=== PATIENT | female | born 1930 | race Caucasian/White ===

== ENCOUNTER 2016-07-05 10:22 | Emergency (ER) | payer MEDICARE, BC ==
[2016-07-05 10:54] VITALS: BP 151/81
--- NOTE | 2016-07-05 12:27 | RAD ---
HISTORY: Left hip pain, no history of trauma provided COMPARISONS: April 06, 2015 VIEWS: 4, Frontal view of the pelvis with frontal and frog-leg views of the left hip FINDINGS: BONE DENSITY: There is diffuse osteopenia. BONES: There is no displaced fracture. JOINTS: There is mild to moderate osteoarthritis of the hips bilaterally. ALIGNMENT: There is no dislocation. SOFT TISSUES: There is peripheral arterial calcification. OTHER FINDINGS: An IVC filter is noted IMPRESSION: 1. OSTEOPENIA. 2. OSTEOARTHRITIS. 3. PERIPHERAL ARTERIAL DISEASE. 4. NO ACUTE OSSEOUS INJURY. IF SYMPTOMS PERSIST, RECOMMEND REPEAT IMAGING
[2016-07-05] MEDS ORDERED: Acetaminophen TAB* 325 MG PO ONE (12:39)
--- NOTE | 2016-07-05 12:47 | UC ---
Aby Dawkins Auryana, [facility]ed for [facility] on 07/05/16 at 1121 . Hip/Pelvis Pain - HPI Summary HPI Summary: IN ROOM NOTE: 86 year old female presents with left hip pain starting last night. Patient reports that she also wasn't able to walk as normal. Daughter states that she was able to walk to the car and into Urgent Care but with a lot of pain. Patient denies any N/V/GI distress. She reports with occasional upper back pain- not more than normal. Director Social reports that she has seemed much more weak with substantial weight loss recently. PMHx is significant for chronic low back pain , RA, CVA, Parkinsons, and atrial ablation with stent. Patient currently lives alone with daily and prolonged visits from family. Her PCP is her Dr. Bowman. NOTE: Vital signs stable. Pulse Ox 99%. Patient is on Pradaxa and has Parkinsons. Visit history is significant for rheumatoid arthritis. NURSE NOTE: top of the left hip is very painful. pt noticed it last night. she has had no falls or trauma. - History Of Current Complaint Chief Complaint: UCLowerExtremity Stated Complaint: HIP PAIN Time Seen by Provider: 07/05/16 11:21 Hx Obtained From: Patient Hx Last Menstrual Period: post menopausal ?: No Mechanism Of Injury: unknown Onset/Duration: Sudden Onset - last night, Still Present Timing: Constant Severity Initially: Moderate Severity Currently: Moderate Location: Discrete At: - left hip Aggravating Factor(s): Movement, Weight Bearing Associated Signs And Symptoms: Positive: Negative Related History: Similar Episode/Dx As - SEE HPI - Allergies/Home Medications Allergies/Adverse Reactions: Allergies Allergy/AdvReac Type Severity Reaction Status Date / Time No Known Allergies Allergy Verified 01/26/14 09:38 PMH/Surg Hx/FS Hx/Imm Hx - Additional Past Medical History Additional PMH: ascending thoracic aortic aneurysm Endocrine History Of: Denies: Diabetes, Thyroid Disease Cardiovascular History Of: Reports: Hypertension - medicated Respiratory History Of: Reports: Pulmonary Embolism GI/ History Of: Denies: Renal Disease Neurological History Of: Reports: CVA Psychological History Of: Comment Only: Anxiety - occasional anxiety but no treatment Other History Of: Anticoagulant Therapy - Pradaxa - Surgical History Surgical History: Yes Surgery Procedure, Year, and Place: Cholycystectomy, cataracts, tonsillectomy, - Family History Known Family History: Positive: Cardiac Disease, Other - multiple myeloma - Social History Occupation: Retired Lives: Alone Alcohol Use: None Substance Use Type: None Smoking Status (MU): Never Smoked Tobacco - Immunization History Most Recent Tetanus Shot: Unknown Review of Systems Constitutional: Negative Skin: Negative Eyes: Negative ENT: Negative Cardiovascular: Negative Gastrointestinal: Negative Genitourinary: Negative Motor: Negative Neurovascular: Negative Musculoskeletal: Arthralgia - left hip pain All Other Systems Reviewed And Are Negative: Yes Physical Exam Triage Information Reviewed: Yes Appearance: Well-Appearing, No Pain Distress, Well-Nourished Vital Signs: Initial Vital Signs Temp 97.8 F 07/05/16 10:44 Pulse 83 07/05/16 10:44 Resp 18 07/05/16 10:44 BP 151/81 07/05/16 10:44 Pulse Ox 99 07/05/16 10:44 Vital Signs Reviewed: Yes Eyes: Positive: Conjunctiva Clear ENT: Positive: Hearing grossly normal, Pharynx normal, TMs normal Neck: Positive: Supple, Nontender, No Lymphadenopathy Respiratory: Positive: Chest non-tender, Lungs clear, Normal breath sounds, No respiratory distress Cardiovascular: Positive: No Murmur, Other: - IRREGULAR RATE AND RHYTHM Abdomen Description: Positive: Nontender, No Organomegaly, Soft Bowel Sounds: Positive: Present Musculoskeletal: Positive: Strength Intact, Other: - LINDSEY; MODERATE TENDERNESS OF THE LEFT HIP ON PALPATION. MILD TENDERNESS IN THE AREA OF THE LEFT BUTTOCK. NO TENDERNESS OVER THE CALF MUSCLES Neurological: Positive: Alert Psychological: Positive: Age Appropriate Behavior Skin: Negative: rashes Diagnostics - Radiology LEFT HIP/PELVIS XR Xray Interpretation: No Acute Changes Radiology Interpretation Completed By: Radiologist Hip Injury Course/Dx - Course Course Of Treatment: Discussed with patient and family the option of increased help at home to prevent future falls. Recommended acetaminophen 2000 mg pain and contrast baths. Advised to go to the ER or her PCP if her pain does not improve by next week for stronger medication like mild narcotic pain medication. Patient is Urgent/Emergent. BP elevated due to current condition w/ o HTN in PMH. Medications have been included in the original chart and reviewed. - Differential Dx/Diagnosis Differential Diagnosis/HQI/PQRI: Contusion, Sciatica Provider Diagnoses: LEFT HIP PAIN: ARTHRALGIA? BURSITIS? SOFT TISSUE INJURY? Discharge - Discharge Plan Condition: Stable Disposition: HOME Patient Education Materials: Hip Bursitis (ED), Arthralgia (ED) Referrals: Melquiades Reardon MD [Primary Care Provider] - 3 Days Additional Instructions: Contrast baths: ALTERNATE ICE AND HEAT FOR 10 MINUTES EACH. Ice massage to area may also help. WE DISCUSSED: You may have arthritis or bursitis or soft tissue injury. At the moment, there is no broken bones seen and no evidence of skin infection. Use contrast baths and up to 2000mg of acetaminophen a day. Call your doctor on Thursday if you are not getting better. Frequent visits by caregivers to assist you. GO TO ED FOR INCREASED PAIN, TEMPERATURE OR DISABILITY. The documentation as recorded by the Aby castrejon Auryana accurately reflects the service I personally performed and the decisions made by me, Lobo Adams MD.
== END 2016-07-05 12:53 | disposition home or self-care (01) ==
LOC: UCEAST 10:22
DX: M25.552 Pain in left hip (principal); N95.9 Unspecified menopausal and perimenopausal disorder; G20 Parkinson's disease; M06.9 Rheumatoid arthritis, unspecified; M54.5 Low back pain; G89.29 Other chronic pain; I25.2 Old myocardial infarction; Z86.711 Personal history of pulmonary embolism; F41.9 Anxiety disorder, unspecified; Z79.01 Long term (current) use of anticoagulants; I71.2 Thoracic aortic aneurysm, without rupture
CPT/HCPCS: 99211; A9270-GY; G0463

== ENCOUNTER 2017-05-10 15:57 | Emergency (ER) | payer MEDICARE ==
[2017-05-10] MEDS ORDERED: traMADol TAB* 50 MG PO ONE (16:33)
--- NOTE | 2017-05-10 17:09 | RAD ---
Indication: Slurring of speech. LEFT shoulder pain. Comparison: No relevant prior exams available on the [facility] PACS for comparison. Technique: AP and scapular Y views of the LEFT shoulder. Report: Normal acromioclavicular and glenohumeral joint alignment. Bone density is decreased throughout. Negative for fracture. Moderate acromioclavicular joint osteophytosis and mild osteophytic lipping at the glenohumeral joint. Minimal calcific tendinopathy at the level of the supraspinatus insertion. Unremarkable soft tissue contours. IMPRESSION: Moderate acromioclavicular and mild glenohumeral joint osteoarthritis. Small burden of supraspinatus level calcific tendinopathy.
--- NOTE | 2017-05-10 17:16 | RAD ---
Indication: Slurring of speech. Comparison: July 14, 2008 Technique: Noncontrast CT vertex of skull through foramen magnum. Report: Chronic finding of dolichoectatic vertebrobasilar system. Atherosclerotic calcification also evident at the intracranial internal carotid arteries and M1 segments of the middle cerebral arteries. Moderate prominence of the cerebral sulci and cerebellar fissures reflecting atrophy. Decreased density in the periventricular and subcortical white matter while non-specific is most likely due to chronic microangiopathy. Negative for davis matter white matter obscuration, intra or extra-axial hemorrhage, or mass effect. No suspicious finding at the orbits. Indolent thickening of the inner table of the frontal bone. Clear partially visualized paranasal sinuses and mastoid air spaces. Unremarkable scalp. IMPRESSION: 1. Negative for intracranial hemorrhage or compelling CT stigmata of acute or subacute ischemic stroke. 2. No acute intracranial process evident. 2. Involutional change and stigmata of chronic small vessel ischemic disease with mild interval worsening.
--- NOTE | 2017-05-10 17:18 | RAD ---
Indication: Slurring of speech. LEFT shoulder and neck pain. Comparison: December 09, 2016 chest radiograph. Technique: Sitting AP chest 1659 hours Report: Cardiomegaly. Mildly prominent and ill-defined central pulmonary vasculature. Mild prominence of the interstitial markings increased over the prior exam with suggestion of peripheral thickened interlobular septa. Trace fluid at the RIGHT minor fissure. Negative for pneumothorax. IMPRESSION: The constellation of findings is most consistent with pulmonary vascular congestion and interstitial edema.
--- NOTE | 2017-05-10 17:19 | RAD ---
Indication: LEFT shoulder and neck pain without known proceeding injury. Comparison: February 01, 2012 Technique: AP, open-mouth odontoid, and lateral views cervical spine. Report: Negative for fracture or facet subluxation at any level. Bone density appears decreased throughout. Multilevel degenerative spondylosis with severe disc space narrowing at C5-C6 and C6-C7 with interval worsening. Facet joint osteoarthritis most prominent in the same distribution. Unremarkable prevertebral soft tissue contours. IMPRESSION: 1. No traumatic injury of the cervical spine evident. 2. Advanced degenerative spondylosis with interval worsening.
[2017-05-10 17:51] LABS: ABS Basophils 0 10^3/ul (0-0.2); ABS Eosinophils 0.1 10^3/ul (0-0.6); ABS Lymphocytes 1.5 10^3/ul (1.0-4.8); ABS Monocytes 0.5 10^3/ul (0-0.8); ABS Neutrophils 8.8 10^3/ul (1.5-7.7); ABS Nucleated RBC 0 10^3/ul; Eosinophil % 1.3 % (0-6); Hematocrit 49 % (35-47); Hemoglobin 16.2 g/dl (12.0-16.0); Lymphocyte % 13.4 % (25-47); Mean Corpuscular HGB Conc 33 g/dl (31-36); Mean Corpuscular Hemoglobin 34 pg (27-31); Mean Corpuscular Volume 105 fL (80-97); Mean Platelet Volume 9.5 um3 (7.4-10.4); Nucleated Red Blood Cells % 0.2; Platelet Count 122 10^3/ul (150-450); Red Cell Distribution Width 16 % (10.5-15)
[2017-05-10 17:59] LABS: INR 0.94 (0.77-1.02)
[2017-05-10 18:09] LABS: EGFR Non-African American 50.7 (>60)
[2017-05-10] MEDS ORDERED: oxyCODONE/Acetamin 5/325 MG* TAB PO ONE (18:35)
[2017-05-10 18:52] VITALS: BP 152/78
--- NOTE | 2017-05-10 20:26 | ED ---
Lynnette Dawkins Edward, scribed for [facility] on 05/10/17 at 1613 . Upper Extremity Pain - HPI Summary HPI Summary: 86 y/o female presents to the ED c/o severe L shoulder pain starting around 15: 00 today. The pain is aggravated with deep breaths, described as a "knife"-like pain. Associated sx: neck pain at the back of the neck. Denies injury. Denies CP or SOB. PMHx Parkinson's, CVA (10-12 years ago). Pt has chronic slurring of speech, which is worse at times than others, according to the pt's son. - History of Current Complaint Stated Complaint: LT SHOULDER PAIN Time Seen by Provider: 05/10/17 16:10 Hx Obtained From: Patient Hx Last Menstrual Period: post menopausal Onset/Duration: Started Hours Ago, Still Present Timing: Constant Pain Location: Shoulder - L Character: Sharp - like a "knife" Aggravating Factor(s): Other - deep breaths Alleviating Factor(s): Nothing Associated Signs & Symptoms: Positive: Neck Pain. Negative: Chest Pain, SOB - Allergies/Home Medications Allergies/Adverse Reactions: Allergies Allergy/AdvReac Type Severity Reaction Status Date / Time No Known Allergies Allergy Verified 05/10/17 17:14 Home Medications: Home Medications Acetaminophen [Tylenol Extra Strength] 500 - 1,000 mg PO TID PRN 05/10/17 [ History Confirmed 05/10/17] Aspirin EC Low Dose* [Ecotrin EC Low Dose 81 MG*] 81 mg PO DAILY 05/10/17 [ History Confirmed 05/10/17] Calcium Carbonate/Vitamin D3 [Calcium 500 + Vit D Caplet] 1 cap PO DAILY [History Confirmed 05/10/17] Carbidopa/Levodop CR 50/200(*) [Sinemet CR 50/200(*)] 1 tab.cr PO TID 05/10/17 [ History Confirmed 05/10/17] Enalapril TAB* [Vasotec TAB*] 5 mg PO DAILY 05/10/17 [History Confirmed 05/10/17 ] Multivitamin with Iron [Daily Multivitamin with Iron] 1 tab PO DAILY 05/10/17 [ History Confirmed 05/10/17] Simvastatin (NF) [Zocor (NF)] 20 mg PO DAILY 05/10/17 [History Confirmed ] amLODIPine TAB* [Norvasc 5 mg TAB*] 2.5 mg PO DAILY 05/10/17 [History Confirmed 05/10/17] PMH/Surg Hx/FS Hx/Imm Hx Previously Healthy: No Endocrine/Hematology History: Reports: Hx Anticoagulant Therapy - Pradaxa Denies: Hx Diabetes, Hx Thyroid Disease Cardiovascular History: Reports: Hx Hypertension - medicated, Other Cardiovascular Problems/Disorders - PE Respiratory History: Reports: Hx Pulmonary Embolism GI History: Reports: Hx Diverticulosis, Hx Gastroesophageal Reflux Disease, Hx Hiatal Hernia, Other GI Disorders History: Denies: Hx Renal Disease Musculoskeletal History: Reports: Hx Arthritis, Hx Rheumatoid Arthritis, Hx Osteoporosis Denies: Hx Back Problems Sensory History: Reports: Hx Cataracts - Surgically repaired, Hx Contacts or Glasses Opthamlomology History: Reports: Hx Cataracts - Surgically repaired, Hx Contacts or Glasses Neurological History: Reports: Other Neuro Impairments/Disorders - Parkinson Psychiatric History: Comment Only: Hx Anxiety - occasional anxiety but no treatment - Cancer History Cancer Type, 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, 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) - Surgical History Surgery Procedure, Year, and Place: Cholycystectomy, cataracts, tonsillectomy, Hx Anesthesia Reactions: No Infectious Disease History: No Infectious Disease History: Reports: Hx Hepatitis - 1960s Denies: Traveled Outside the [place] in Last 30 Days - Family History Known Family History: Positive: Cardiac Disease, Other - multiple myeloma - Social History Alcohol Use: None Substance Use Type: Reports: None Smoking Status (MU): Never Smoked Tobacco Review of Systems Constitutional: Negative Eyes: Negative ENT: Negative Cardiovascular: Negative Respiratory: Negative Gastrointestinal: Negative Genitourinary: Negative Positive: Arthralgia - L shoulder, back of the neck Skin: Negative Neurological: Negative Psychological: Normal All Other Systems Reviewed And Are Negative: Yes Physical Exam - Summary Physical Exam Summary: Appearance: Well appearing, no pain distress Skin: warm, dry, reflects adequate perfusion Head/face: normal Eyes: EOMI, BLANCA ENT: normal Neck: supple, non-tender Respiratory: CTA, breath sounds present Cardiovascular: RRR, pulses symmetrical Abdomen: non-tender, soft Bowel: present Musculoskeletal: Strength/ROM intact. Tenderness over the L shoulder. Neuro: normal, sensory motor intact, A&Ox3 Triage Information Reviewed: Yes Vital Signs On Initial Exam: Initial Vitals Temp Pulse Resp BP Pulse Ox 97.7 F 78 20 150/80 98 05/10/17 16:02 05/10/17 16:02 05/10/17 16:02 05/10/17 16:02 05/10/17 16:02 Vital Signs Reviewed: Yes Diagnostics - Vital Signs Vital Signs Temp Pulse Resp BP Pulse Ox 05/10/17 16:02 97.7 F 78 20 150/80 98 - Laboratory Lab Results: Lab Results 05/10/17 05/10/17 05/10/17 Range/Units 17:30 17:30 17:30 WBC 11.0 H (3.5-10.8) 10^3/ul RBC 4.70 (4.0-5.4) 10^6/ul Hgb 16.2 H (12.0-16.0) g/dl Hct 49 H (35-47) % MCV 105 H (80-97) fL MCH 34 H (27-31) pg MCHC 33 (31-36) g/dl RDW 16 H (10.5-15) % Plt Count 122 L (150-450) 10^3/ul MPV 9.5 (7.4-10.4) um3 Neut % (Auto) 80.2 (38-83) % Lymph % (Auto) 13.4 L (25-47) % [place] % (Auto) 4.7 (0-7) % Eos % (Auto) 1.3 (0-6) % Baso % (Auto) 0.4 (0-2) % Absolute Neuts (auto) 8.8 H (1.5-7.7) 10^3/ul Absolute Lymphs (auto) 1.5 (1.0-4.8) 10^3/ul Absolute Monos (auto) 0.5 (0-0.8) 10^3/ul Absolute Eos (auto) 0.1 (0-0.6) 10^3/ul Absolute Basos (auto) 0 (0-0.2) 10^3/ul Absolute Nucleated RBC 0 10^3/ul Nucleated RBC % 0.2 INR (Anticoag Therapy) 0.94 (0.77-1.02) APTT 28.6 (26.0-36.3) seconds Sodium 138 (133-145) mmol/L Potassium 4.1 (3.5-5.0) mmol/L Chloride 107 (101-111) mmol/L Carbon Dioxide 20 L (22-32) mmol/L Anion Gap 11 (2-11) mmol/L BUN 24 (6-24) mg/dL Creatinine 1.03 H (0.51-0.95) mg/dL Est GFR ( Amer) 65.2 (>60) Est GFR (Non-Af Amer) 50.7 (>60) BUN/Creatinine Ratio 23.3 H (8-20) Glucose 119 H (70-100) mg/dL Calcium 9.4 (8.6-10.3) mg/dL Total Bilirubin 0.90 (0.2-1.0) mg/dL AST 34 (13-39) U/L ALT 6 L (7-52) U/L Alkaline Phosphatase 76 (34-104) U/L Troponin I 0.01 (<0.04) ng/mL B-Natriuretic Peptide ( - 100) pg/mL Total Protein 7.2 (6.4-8.9) g/dL Albumin 3.6 (3.2-5.2) g/dL Globulin 3.6 (2-4) g/dL Albumin/Globulin Ratio 1.0 (1-3) 03/25/18 Range/Units 17:30 WBC (3.5-10.8) 10^3/ul RBC (4.0-5.4) 10^6/ul Hgb (12.0-16.0) g/dl Hct (35-47) % MCV (80-97) fL MCH (27-31) pg MCHC (31-36) g/dl RDW (10.5-15) % Plt Count (150-450) 10^3/ul MPV (7.4-10.4) um3 Neut % (Auto) (38-83) % Lymph % (Auto) (25-47) % [place] % (Auto) (0-7) % Eos % (Auto) (0-6) % Baso % (Auto) (0-2) % Absolute Neuts (auto) (1.5-7.7) 10^3/ul Absolute Lymphs (auto) (1.0-4.8) 10^3/ul Absolute Monos (auto) (0-0.8) 10^3/ul Absolute Eos (auto) (0-0.6) 10^3/ul Absolute Basos (auto) (0-0.2) 10^3/ul Absolute Nucleated RBC 10^3/ul Nucleated RBC % INR (Anticoag Therapy) (0.77-1.02) APTT (26.0-36.3) seconds Sodium (133-145) mmol/L Potassium (3.5-5.0) mmol/L Chloride (101-111) mmol/L Carbon Dioxide (22-32) mmol/L Anion Gap (2-11) mmol/L BUN (6-24) mg/dL Creatinine (0.51-0.95) mg/dL Est GFR ( Amer) (>60) Est GFR (Non-Af Amer) (>60) BUN/Creatinine Ratio (8-20) Glucose (70-100) mg/dL Calcium (8.6-10.3) mg/dL Total Bilirubin (0.2-1.0) mg/dL AST (13-39) U/L ALT (7-52) U/L Alkaline Phosphatase (34-104) U/L Troponin I (<0.04) ng/mL B-Natriuretic Peptide 221 H ( - 100) pg/mL Total Protein (6.4-8.9) g/dL Albumin (3.2-5.2) g/dL Globulin (2-4) g/dL Albumin/Globulin Ratio (1-3) Result Diagrams: 05/10/17 17:30 05/10/17 17:30 Lab Statement: Any lab studies that have been ordered have been reviewed, and results considered in the medical decision making process. - Radiology SHOULDER XR Radiology Interpretation Completed By: Radiologist - Moderate acromioclavicular and mild glenohumeral joint osteoarthritis. Small burden of supraspinatus level calcific tendinopathy. CSPINE XR Radiology Interpretation Completed By: Radiologist - 1. No traumatic injury of the cervical spine evident. 2. Advanced degenerative spondylosis with interval worsening. CXR Xray Interpretation: Positive (See Comments) - The constellation of findings is most consistent with pulmonary vascular congestion and interstitial edema. Radiology Interpretation Completed By: Radiologist - CT BRAIN CT CT Interpretation: No Acute Changes - 1. Negative for intracranial hemorrhage or compelling CT stigmata of acute or subacute ischemic stroke. 2. No acute intracranial process evident. 2. Involutional change and stigmata of chronic small vessel ischemic disease with mild interval worsening. CT Interpretation Completed By: Radiologist - EKG 1 EKG Interpretation: 16:41 - AFIB @ 83 BPM. QS in V2, V3. Course/Dx - Course Assessment/Plan: 86 y/o female presents to the ED c/o severe L shoulder pain starting around 15:00 today. The pain is aggravated with deep breaths, described as a "knife"-like pain. Associated sx: neck pain at the back of the neck. Denies injury. Denies CP or SOB. PMHx Parkinson's, CVA (10-12 years ago). EKG - 16:41 - AFIB @ 83 BPM. QS in V2, V3. SHOULDER XR SHOWS Moderate acromioclavicular and mild glenohumeral joint osteoarthritis. Small burden of supraspinatus level calcific tendinopathy. C-SPINE XR SHOWS 1. No traumatic injury of the cervical spine evident. 2. Advanced degenerative spondylosis with interval worsening. BRAIN CT SHOWS 1. Negative for intracranial hemorrhage or compelling CT stigmata of acute or subacute ischemic stroke. 2. No acute intracranial process evident. 2. Involutional change and stigmata of chronic small vessel ischemic disease with mild interval worsening. CXR SHOWS The constellation of findings is most consistent with pulmonary vascular congestion and interstitial edema. Pt will be d/c home with f/u with PCP. Pt is agreeable with this plan. - Diagnoses Differential Diagnosis/HQI/PQRI: Positive: Arthritis, Bursitis, Fracture (Open) , Strain, Sprain Provider Diagnoses: Shoulder pain, left, Musculoskeletal pain Discharge - Sign-Out/Discharge Documenting (check all that apply): Discharge - Discharge Plan Condition: Stable Disposition: HOME Prescriptions: Oxycodone HCl/Acetaminophen [Percocet 2.5-325 mg (NF)] 1 tab PO Q8H PRN #15 tab MDD 3 PRN Reason: Pain Patient Education Materials: Musculoskeletal Pain (ED), Shoulder Pain (ED) Referrals: Nasrin Bowman MD [Primary Care Provider] - 4 Days (PLEASE F/U IN 3-5 DAYS) Additional Instructions: RETURN TO THE ED FOR CHANGING OR WORSENING SYMPTOMS - Billing Disposition and Condition Condition: STABLE Disposition: HOME The documentation as recorded by the Lynnette castrejon Edward accurately reflects the service I personally performed and the decisions made by , Jeronimo Holt.
== END 2017-05-10 18:51 | disposition home or self-care (01) ==
LOC: ED 15:57
DX: M25.512 Pain in left shoulder (principal); M54.2 Cervicalgia; M47.812 Spondylosis without myelopathy or radiculopathy, cervical region; R47.81 Slurred speech; M19.012 Primary osteoarthritis, left shoulder; I48.91 Unspecified atrial fibrillation; I10 Essential (primary) hypertension; Z86.711 Personal history of pulmonary embolism; Z79.01 Long term (current) use of anticoagulants; K21.9 Gastro-esophageal reflux disease without esophagitis; K44.9 Diaphragmatic hernia without obstruction or gangrene; K57.90 Diverticulosis of intestine, part unspecified, without perforation or abscess without bleeding; M06.9 Rheumatoid arthritis, unspecified; M81.0 Age-related osteoporosis without current pathological fracture
CPT/HCPCS: 36415; 70450; 71045; 72040; 80053; 83880; 84484; 85025; 85610; 85730; 93005; 99284; A9270-GY

== ENCOUNTER 2017-05-15 11:06 | Inpatient (IN) | payer MEDICARE ==
[2017-05-15] MEDS ORDERED: NS 0.9% 1000 ML* 1,000 ML IV ONE (11:57)
[2017-05-15 12:39] LABS: Hemoglobin 14.9 g/dl (12.0-16.0); Red Blood Count 4.31 10^6/ul (4.0-5.4)
[2017-05-15 12:40] LABS: ABS Basophils 0 10^3/ul (0-0.2); ABS Eosinophils 0 10^3/ul (0-0.6); ABS Monocytes 0.9 10^3/ul (0-0.8); ABS Nucleated RBC 0 10^3/ul; Eosinophil % 0.3 % (0-6); Hematocrit 45 % (35-47); Lymphocyte % 8.7 % (25-47); Mean Corpuscular HGB Conc 33 g/dl (31-36); Mean Corpuscular Hemoglobin 35 pg (27-31); Mean Corpuscular Volume 104 fL (80-97); Mean Platelet Volume 9.3 um3 (7.4-10.4); Nucleated Red Blood Cells % 0; Platelet Count 157 10^3/ul (150-450); Red Cell Distribution Width 15 % (10.5-15)
[2017-05-15 12:49] LABS: Urine Appearance Clear; Urine Blood Negative (Negative); Urine Color Amber; Urine Ketones Trace (Negative); Urine Protein 2+(100 mg/dL) (Negative); Urine Urobilinogen Positive (Negative)
[2017-05-15 12:53] LABS: INR 0.99 (0.77-1.02)
[2017-05-15 12:56] LABS: EGFR Non-African American 50.7 (>60)
--- NOTE | 2017-05-15 13:11 | RAD ---
HISTORY: Evaluate for pneumonia COMPARISONS: May 10, 2017, December 09, 2016 VIEWS: 2: Frontal and lateral views of the chest. FINDINGS: CARDIOMEDIASTINAL SILHOUETTE: The cardiac silhouette is mildly enlarged. The cardiomediastinal silhouette is otherwise normal. CAREY: The carey are normal. PLEURA: The costophrenic angles are sharp. No pleural abnormalities are noted. LUNG PARENCHYMA: There is hyperinflation with flattening of the diaphragm and expansion of the AP diameter of the chest. ABDOMEN: The upper abdomen is clear. There is no subphrenic gas. BONES AND SOFT TISSUES: There are stable compression deformities of the thoracic spine. OTHER: None. IMPRESSION: HYPERINFLATION, CONSISTENT WITH COPD. NO ACTIVE CARDIOPULMONARY DISEASE.
--- NOTE | 2017-05-15 13:14 | RAD ---
HISTORY: Fall, hand pain and swelling COMPARISONS: None VIEWS: 3, Frontal, lateral, and oblique views of the right hand FINDINGS: BONE DENSITY: There is diffuse osteopenia. BONES: There is no displaced fracture. JOINTS: There is osteoarthritis of the second and third MCP joints, and of the interphalangeal joints. ALIGNMENT: There is no dislocation. SOFT TISSUES: There is peripheral arterial calcification.. OTHER FINDINGS: None. IMPRESSION: 1. OSTEOPENIA. 2. OSTEOARTHRITIS. 3. PERIPHERAL ARTERIAL DISEASE. 4. NO ACUTE OSSEOUS INJURY. THE DEGREE OF OSTEOPENIA MAY MAKE A NONDISPLACED FRACTURE RADIOGRAPHICALLY OCCULT. IF SYMPTOMS PERSIST, RECOMMEND REPEAT IMAGING.
--- NOTE | 2017-05-15 13:15 | RAD ---
HISTORY: Fall, generalized pain COMPARISONS: July 05, 2016 VIEWS: 1, Single frontal view of the pelvis FINDINGS: BONE DENSITY: There is diffuse osteopenia. BONES: There is no displaced fracture. JOINTS: There is mild osteoarthritis of the hips bilaterally. ALIGNMENT: There is no dislocation. SOFT TISSUES: There is peripheral arterial calcification. OTHER FINDINGS: An IVC filter is noted. IMPRESSION: 1. OSTEOPENIA. 2. OSTEOARTHRITIS. 3. PERIPHERAL ARTERIAL DISEASE. 4. NO ACUTE OSSEOUS INJURY. THE DEGREE OF OSTEOPENIA MAY MAKE A NONDISPLACED FRACTURE RADIOGRAPHICALLY OCCULT. IF SYMPTOMS PERSIST, RECOMMEND REPEAT IMAGING..
--- NOTE | 2017-05-15 13:16 | RAD ---
HISTORY: Fall, generalized pain COMPARISONS: None VIEWS: 6, frontal, outlet, and lateral views of the sacrum and coccyx. FINDINGS: BONE DENSITY: There is diffuse osteopenia. BONES: There is no displaced fracture. JOINTS: There is facet and SI osteoarthritis. ALIGNMENT: There is no dislocation. SOFT TISSUES: There is peripheral arterial calcification. OTHER FINDINGS: None. IMPRESSION: 1. OSTEOPENIA. 2. OSTEOARTHRITIS. 3. PERIPHERAL ARTERIAL DISEASE. 4. NO ACUTE OSSEOUS INJURY OF THE SACRUM AND COCCYX. PLAIN FILMS ARE RELATIVELY INSENSITIVE TO NONDISPLACED FRACTURES OF THE SACRUM AND COCCYX. IF THERE IS PERSISTENT CLINICAL CONCERN FOR SACROCOCCYGEAL OSSEOUS PATHOLOGY, BONE SCANNING MAY BE MORE SENSITIVE
[2017-05-15] MEDS ORDERED: Zolpidem TAB* 5 MG PO PRN (16:03)
[2017-05-15] MEDS ORDERED: Lidocaine PATCH 5%* 1 PATCH TRANSDERM PRN (16:03)
[2017-05-15] MEDS ORDERED: guaiFENesin LIQ* 100 MG/5 ML UDC PO PRN (16:06)
[2017-05-15] MEDS ORDERED: Benzonatate CAP* 100 MG PO PRN (16:07)
[2017-05-15] MEDS ORDERED: NS 0.9% 1000 ML* 1,000 ML IV SCH (16:15)
--- NOTE | 2017-05-15 16:57 | ED ---
Pollo Dawkins Jason, scribed for Clementine Ferreira MD on 05/15/17 at 1259 . Upper Extremity Pain - HPI Summary HPI Summary: This patient is a 86 year old F presenting to [facility] with a chief complaint of injury from a fall since 2 days ago. She states that she fell due to losing balance and injured her right hand and is experiencing sacral pain. The patient includes she has had generalized weakness for 2 years, which has increased following the fall. Furthermore, she has had a yellow productive cough that started 4-5 days ago. The patient rates the pain 5/10 in severity. Symptoms aggravated by nothing. Symptoms alleviated by nothing. Patient reports right hand pain, fever, and sacrum pain. Patient denies chills, CP, and SOB. - History of Current Complaint Chief Complaint: EDWeakness Stated Complaint: INCREASED WEAKNESS Time Seen by Provider: 05/15/17 11:42 Hx Obtained From: Patient Hx Last Menstrual Period: post menopausal Mechanism Of Injury: Fall From A Standing Position Pain Location: Hand - right, Other: - sacrum Aggravating Factor(s): Nothing Alleviating Factor(s): Nothing Associated Signs & Symptoms: Positive: Other - Patient reports right hand pain, fever, and sacrum pain. Patient denies chills, CP, and SOB. - Allergies/Home Medications Allergies/Adverse Reactions: Allergies Allergy/AdvReac Type Severity Reaction Status Date / Time No Known Allergies Allergy Verified 05/10/17 17:14 PMH/Surg Hx/FS Hx/Imm Hx Previously Healthy: No Endocrine/Hematology History: Reports: Hx Anticoagulant Therapy - Pradaxa Denies: Hx Diabetes, Hx Thyroid Disease Cardiovascular History: Reports: Hx Hypertension - medicated, Other Cardiovascular Problems/Disorders - PE Respiratory History: Reports: Hx Pulmonary Embolism GI History: Reports: Hx Diverticulosis, Hx Gastroesophageal Reflux Disease, Hx Hiatal Hernia, Other GI Disorders History: Denies: Hx Renal Disease Musculoskeletal History: Reports: Hx Arthritis, Hx Rheumatoid Arthritis, Hx Osteoporosis Denies: Hx Back Problems Sensory History: Reports: Hx Cataracts - Surgically repaired, Hx Contacts or Glasses Opthamlomology History: Reports: Hx Cataracts - Surgically repaired, Hx Contacts or Glasses Neurological History: Reports: Other Neuro Impairments/Disorders - Parkinson Psychiatric History: Comment Only: Hx Anxiety - occasional anxiety but no treatment - Cancer History Cancer Type, 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 Negative: Chills Negative: Chest Pain Negative: Shortness Of Breath Positive: Other - right hand pain. Sacrum pain. All Other Systems Reviewed And Are Negative: Yes Physical Exam - Summary Physical Exam Summary: Constitutional: Well-developed, Well-nourished, Alert. (-) Distressed Skin: Warm, Dry HENT: Normocephalic; Atraumatic Eyes: Conjunctiva normal Neck: Musculoskeletal ROM normal neck. (-) JVD, (-) Stridor, (-) Tracheal deviation Cardio: Rhythm irregular, rate irregular, tachycardic, Heart sounds normal; Intact distal pulses; The pedal pulses are 2+ and symmetric. Radial pulses are 2 + and symmetric. (-) Murmur Pulmonary/Chest wall: Effort normal. (-) Respiratory distress, (-) Wheezes, Rhonchi throughout lungs. Abd: Soft, (-) Tenderness, (-) Distension, (-) Guarding, (-) Rebound Musculoskeletal: Right hand is swollen, tender to palpation over the right index finger. Back Exam: Tender to palpation over the sacrum Lymph: (-) Cervical adenopathy Neuro: Alert, Oriented x3 Psych: Mood and affect Normal Triage Information Reviewed: Yes Vital Signs On Initial Exam: Initial Vitals Temp Pulse Resp BP Pulse Ox 100.2 F 116 16 143/87 98 05/15/17 11:37 05/15/17 11:37 05/15/17 11:37 05/15/17 11:37 05/15/17 11:37 Vital Signs Reviewed: Yes Diagnostics - Vital Signs Vital Signs Temp Pulse Resp BP Pulse Ox 05/15/17 11:37 100.2 F 116 16 143/87 98 - Laboratory Lab Results: Lab Results 03/30/18 03/30/18 Range/Units 12:10 12:10 WBC 12.0 H (3.5-10.8) 10^3/ul RBC 4.31 (4.0-5.4) 10^6/ul Hgb 14.9 (12.0-16.0) g/dl Hct 45 (35-47) % MCV 104 H (80-97) fL MCH 35 H (27-31) pg MCHC 33 (31-36) g/dl RDW 15 (10.5-15) % Plt Count 157 (150-450) 10^3/ul MPV 9.3 (7.4-10.4) um3 Neut % (Auto) 83.3 H (38-83) % Lymph % (Auto) 8.7 L (25-47) % [place] % (Auto) 7.5 H (0-7) % Eos % (Auto) 0.3 (0-6) % Baso % (Auto) 0.2 (0-2) % Absolute Neuts (auto) 10.0 H (1.5-7.7) 10^3/ul Absolute Lymphs (auto) 1.0 (1.0-4.8) 10^3/ul Absolute Monos (auto) 0.9 H (0-0.8) 10^3/ul Absolute Eos (auto) 0 (0-0.6) 10^3/ul Absolute Basos (auto) 0 (0-0.2) 10^3/ul Absolute Nucleated RBC 0 10^3/ul Nucleated RBC % 0 Urine Color Aaliyah Urine Appearance Clear Urine pH 7.0 (5-9) Ur Specific [place] 1.020 (1.010-1.030) Urine Protein 2+(100 mg/dl) A (Negative) Urine Ketones Trace A (Negative) Urine Blood Negative (Negative) Urine Nitrate Negative (Negative) Urine Bilirubin Negative (Negative) Urine Urobilinogen Positive A (Negative) Ur Leukocyte Esterase Negative (Negative) Urine WBC (Auto) Trace(0-5/hpf) (Absent) Urine RBC (Auto) 1+(3-5/hpf) A (Absent) Ur Squamous Epith Cells Present A (Absent) Urine Bacteria Absent (Absent) Urine Glucose Negative (Negative) Urine Ascorbic Acid * A (Negative) Result Diagrams: 05/15/17 12:10 05/15/17 12:10 Lab Statement: Any lab studies that have been ordered have been reviewed, and results considered in the medical decision making process. - Radiology Pelvis X-ray Radiology Interpretation Completed By: Radiologist - Pelvis X-ray reveals, per radiologist, 1. OSTEOPENIA. 2. OSTEOARTHRITIS. 3. PERIPHERAL ARTERIAL DISEASE. 4. NO ACUTE OSSEOUS INJURY. THE DEGREE OF OSTEOPENIA MAY MAKE A NONDISPLACED FRACTURE RADIOGRAPHICALLY OCCULT. IF SYMPTOMS PERSIST, RECOMMEND REPEAT IMAGING. ED physician has reviewed this radiology report. sacrum and coccyx xray Radiology Interpretation Completed By: Radiologist - Sacrum and coccyx x-ray reveals, per radiologist, 1. OSTEOPENIA. 2. OSTEOARTHRITIS. 3. PERIPHERAL ARTERIAL DISEASE. 4. NO ACUTE OSSEOUS INJURY OF THE SACRUM AND COCCYX. PLAIN FILMS ARE RELATIVELY INSENSITIVE TO NONDISPLACED FRACTURES OF THE SACRUM AND COCCYX. IF THERE IS PERSISTENT CLINICAL CONCERN FOR SACROCOCCYGEAL OSSEOUS PATHOLOGY, BONE SCANNING MAY BE MORE SENSITIVE. ED physician has reviewed this radiology report. hand xray Radiology Interpretation Completed By: Radiologist - Hand x-ray reveals, per radiologist, 1. OSTEOPENIA. 2. OSTEOARTHRITIS. 3. PERIPHERAL ARTERIAL DISEASE. 4. NO ACUTE OSSEOUS INJURY. THE DEGREE OF OSTEOPENIA MAY MAKE A NONDISPLACED FRACTURE RADIOGRAPHICALLY OCCULT. IF SYMPTOMS PERSIST, RECOMMEND REPEAT IMAGING. ED physician has reviewed this radiology report. cxr Radiology Interpretation Completed By: Radiologist - CXR reveals, per radiologist, HYPERINFLATION, CONSISTENT WITH COPD. NO ACTIVE CARDIOPULMONARY DISEASE. ED physician has reviewed this radiology report. - EKG 1206 Cardiac Rate: Tachycardia - 115 bpm EKG Rhythm: Atrial Fibrillation EKG Interpretation: LAFB Course/Dx - Course Course Of Treatment: 86 year old female presents with generalized weakness and frequent falls. Patient found to be in A fib with RVR which improved with IVFs. Work-up remarkable for elevated lactic acidic most likely 2/2 dehydration. Patient will be admitted for IV rehydration - Diagnoses Provider Diagnoses: Dehydration - Physician Notifications Discussed Care of Patient With: Michael Mortensen Time Discussed With Above Provider: 14:35 Instructed by Provider To: Admit As Inpatient - Discussion pt condition with Dr. Mortensen. He recommends admission. Discharge - Sign-Out/Discharge Documenting (check all that apply): Discharge - Discharge Plan Condition: Stable Disposition: ADMITTED TO [facility] - Billing Disposition and Condition Condition: STABLE Disposition: [facility] [place] The documentation as recorded by the Pollo castrejon Jason accurately reflects the service I personally performed and the decisions made by , Clementine Ferreira MD.
[2017-05-15] MEDS ORDERED: Methotrexate TAB* 2.5 MG PO SCH (18:00)
[2017-05-15] MEDS: traMADol TAB* 50 MG PO PRN ×2 (21:12→22:31)
[2017-05-15] MEDS: Carbidopa/Levodop CR 50/200(*) TAB.CR PO SCH (21:12)
[2017-05-15] MEDS: Heparin VIAL(*) 5000 UNITS/ML VIAL (FIVE THOUSAND) SUBCUT SCH (21:29)
--- NOTE | 2017-05-15 22:54 | HP ---
CC: Dr. Bowman * HOSPITAL MEDICINE HISTORY AND PHYSICAL: DATE OF ADMISSION: 05/15/17 PRIMARY CARE PHYSICIAN: Dr. Bowman. ATTENDING PHYSICIAN: Dr. Michael Mortensen * (dictation provided by Nahomi Lyman NP) CHIEF COMPLAINT: Falls and weakness. HISTORY OF PRESENT ILLNESS: Ms. Tee is an 86-year-old female with a past medical history of Parkinson's; systolic congestive heart failure; WI in 2011, with stent; history of PE, no longer on Pradaxa due to GI bleed, who presented to the hospital today with concern for weakness. Ms. Tee states that she first began to feel unwell last Thursday and was evaluated in the emergency room here at [facility] with concern for left-sided neck pain. The patient reports that she had good resolution of the pain with the hot pack. However, since then, she has been weaker than usual. She has had 1 fall on Thursday, at which time she fell and injured her right hand with a large bruise and she also had some pain in her tailbone. She was still able to ambulate after that but since then has become weaker and today was unable to get up. She called her son to be brought into to the emergency room. The patient reports a new cough that is likely started yesterday. There is no report of fever, chills, chest pain, shortness of breath, nausea, vomiting, or diarrhea. The patient had constipation yesterday with quite a difficult bowel movement. She denies any dysuria or frequency. She denies any focal weakness but just states in general it is hard for her to get around and she was unable to get to the bathroom. In the emergency room, Ms. Tee had labs, which showed concern for a mild lactic acidosis at 2.4 that improved mildly to 2.1 with IV fluids. Her troponin was 0.03. She has no significant leukocytosis. She has no anemia. Her BUN and creatinine are normal. Her electrolytes are otherwise normal. She has atrial fibrillation noted with the heart rate of about 110. I do not see either here on our records or in the patient's primary care records where she had had a history of this, except for when she was in the emergency room earlier this week. The patient denies any chest pain or palpitations. Chest x- ray shows no acute process. There is no fever, vitals are stable. PAST MEDICAL HISTORY: 1. Parkinson's disease. 2. Systolic congestive heart failure. 3. History of WI in 2011, with stent. 4. Chronic renal insufficiency. 5. Rheumatoid arthritis. 6. Hypothyroidism. 7. History of PE, on Pradaxa, now off due to lower GI bleeding. 8. Ascending aortic aneurysm. 9. Osteoporosis with history of compression fractures. 10. Tonsillectomy. 11. Cholecystectomy. 12. History of right-sided CVA in 2008, no residual. 13. Cataract surgery. 14. Hypothyroidism. MEDICATIONS: 1. Tylenol 500 to 1000 mg p.o. t.i.d. p.r.n. 2. Calcium carbonate with vitamin D 1 cap p.o. daily. 3. Multivitamin with iron 1 tab p.o. daily. 3. Simvastatin 20 mg p.o. daily. 4. Amlodipine 2.5 mg p.o. daily. 5. Aspirin 81 mg p.o. daily. 6. Carbidopa/levodopa 1 tab p.o. t.i.d. The patient states she takes 2 to 3 tabs a day depending on the amount of tremor. 7. Enalapril 5 mg p.o. daily. 8. Folic acid 1 mg p.o. daily. 9. Levothyroxine 50 mcg p.o. daily. 10. Lidocaine patch 5% one patch transdermally daily p.r.n. 11. Methotrexate 7.5 mg p.o. Fridays. 12. Omeprazole 20 mg p.o. daily. 13. Oxycodone with acetaminophen 5/325, 0.5 tab p.o. q.a.m. p.r.n. 14. Zolpidem 5 mg p.o. at bedtime. ALLERGIES: No known drug allergies. FAMILY HISTORY: Reportedly mother had heart disease, in her 50s. She has 2 sisters, had heart disease and a brother had multiple myeloma. SOCIAL HISTORY: No report of alcohol, tobacco, or drug use, but she was exposed to tobacco because her was a smoker. She states her son, Lobo , is her healthcare proxy. REVIEW OF SYSTEMS: A 14-point review of systems was completed with Ms. Tee and all those not mentioned above were negative. PHYSICAL EXAMINATION GENERAL: Ms. Tee is sitting in the bed. She is in no acute distress. VITAL SIGNS: Temperature 100.2, pulse rate 98, respiratory rate 16, O2 saturation 98% on room air, blood pressure 130/66. LUNGS: Had some rhonchi in the bases bilaterally. No wheezing. No crackles. HEART: S1, S2, and irregular. No murmur, rub, or gallop. ABDOMEN: Soft, nontender with bowel sounds positive x4. EXTREMITIES: No cyanosis. Positive for 1 to 2+ pitting edema bilaterally. NEURO: She is alert. She is oriented x3. She moves all extremities equally. There is no facial asymmetry or focal weakness. Extraocular movements are intact. SKIN: Intact. DIAGNOSTIC STUDIES/LAB DATA: WBC 12.0, hemoglobin 14.9, hematocrit 45, platelet count 157. INR 0.99. Sodium 140, potassium 4.1, chloride 108, serum bicarbonate 22, BUN 23, creatinine 1.03, glucose 151, and lactic acid 2.4, followup is 2.1. Troponin 0.03, repeat is 0.03. Urine is negative for infection , with no nitrite or leuk esterase. Chest x-ray is read as follows: "Hyperinflation consistent with COPD. No active cardiopulmonary disease." Pelvic x-ray: "Osteopenia, osteoarthritis, peripheral arterial disease, no acute osseous injury." Sacrum and coccyx x-ray is the same as well as the hand x-ray. ASSESSMENT AND PLAN: Ms. Tee is an 86-year-old female with a past medical history of Parkinson's, systolic congestive heart failure, coronary artery disease with myocardial infarction and stent, rheumatoid arthritis, and pulmonary embolism, now off Pradaxa due to lower gastrointestinal bleeding that presents to the hospital today with concern for weakness. In talking with her, she also reports an onset of a cough last evening. She has a fever to only 100.2. She is mildly tachycardic with a heart rate of about 100 with atrial fibrillation, which was newly noted, as best I can tell, just this week on 05/10, when she was here with neck pain (now resolved). Our plans are for observation in the hospital for the followin. New weakness. The patient has been living independently and is suddenly not able to ambulate. I question whether or not this is secondary to an acute viral illness. She does have a mildly elevated temperature, a very mildly elevated white count. Plan to add on ESR, CRP, and procalcitonin. Flu swab has been sent. Urine is negative. Chest x-ray is negative. Other than this, it could be related to new- onset atrial fibrillation, although her rate is controlled, perhaps she is not tolerating the arrhythmia. Plan for telemetry monitoring. She will have a transthoracic echocardiogram. Otherwise, we will continue further workup based on clinical course. 2. New-onset atrial fibrillation. Plan for a transthoracic echocardiogram which will be available on Thursday. Her troponins are normal. She denies any symptoms other than her weakness, which could be related to atrial fibrillation but also could be related to viral illness or some other etiology. She is not a candidate for anticoagulation, as she has a history of lower gastrointestinal bleeding. I did not plan to start any rate-control agents at this point as her rate has thus far been controlled. 3. Parkinson's. Plan to continue Sinemet. 4. History of congestive heart failure. The patient has a mild lower extremity edema, but no other evidence for exacerbation. Continue home medications. 5. Hypertension. Continue amlodipine, enalapril. 6. Hypothyroidism. Continue levothyroxine. 7. Rheumatoid arthritis. Continue methotrexate. 8. Hyperlipidemia. Simvastatin is not on our formulary. Will resume home meds at discharge. 9. Code status is DNR. TIME SPENT: Approximately 65 minutes was spent on the admission of this patient ; more than half of the time was spent with the patient at the bedside reviewing the events leading up to this hospitalization, performing the physical examination, and reviewing my plan of care. NAHOMI LYMAN NP [id number]/CPS #: [id number] KASSIDY
[2017-05-16] MEDS: Levothyroxine TAB* 50 MCG TAB PO SCH (06:00)
[2017-05-16] MEDS: Heparin VIAL(*) 5000 UNITS/ML VIAL (FIVE THOUSAND) SUBCUT SCH ×3 (06:02→21:37)
[2017-05-16 06:41] LABS: EGFR Non-African American 62.4 (>60)
[2017-05-16 07:02] LABS: ABS Basophils 0 10^3/ul (0-0.2); ABS Eosinophils 0.1 10^3/ul (0-0.6); ABS Lymphocytes 1.5 10^3/ul (1.0-4.8); ABS Monocytes 0.7 10^3/ul (0-0.8); ABS Neutrophils 9.4 10^3/ul (1.5-7.7); ABS Nucleated RBC 0 10^3/ul; Eosinophil % 0.5 % (0-6); Hematocrit 44 % (35-47); Hemoglobin 14.5 g/dl (12.0-16.0); Mean Corpuscular HGB Conc 33 g/dl (31-36); Mean Corpuscular Hemoglobin 35 pg (27-31); Mean Corpuscular Volume 106 fL (80-97); Mean Platelet Volume 9.5 um3 (7.4-10.4); Nucleated Red Blood Cells % 0.2; Platelet Count 151 10^3/ul (150-450); Red Blood Count 4.17 10^6/ul (4.0-5.4); Red Cell Distribution Width 16 % (10.5-15); White Blood Count 11.7 10^3/ul (3.5-10.8)
[2017-05-16] MEDS: amLODIPine TAB* 5 MG PO SCH (08:31)
[2017-05-16] MEDS: Omeprazole CAP* 20 MG PO SCH (08:31)
[2017-05-16] MEDS: Aspirin EC TAB* 81 MG TAB.EC PO SCH (08:31)
[2017-05-16] MEDS: Carbidopa/Levodop CR 50/200(*) TAB.CR PO SCH ×3 (08:31→20:43)
[2017-05-16] MEDS: Folic Acid TAB* 1 MG PO SCH (08:31)
--- NOTE | 2017-05-16 08:59 | PN ---
Subjective Date of Service: 05/16/17 Interval History: Ms. Tee was noted to be tachycardic and tachypneic this AM. Chest xray confirmed pulmonary edema, likely secondary to IVF with new afib. IVF stopped, lasix administered IV, and richardson placed. With this, patient has had >800 mls of urine output and resolution of SOB with tachypnea/tachycardia. Ms. Tee states that she is feeling much better but that she continues to feel quite weak. She was not able to work with physical therapy when they came by to assess her. Objective Active Medications: Acetaminophen (Tylenol Tab*) 650 mg PO Q6H PRN Aspirin (Aspirin Ec Tab*) 81 mg PO DAILY [place] Benzonatate (Tessalon Cap*) 100 mg PO BID PRN Carbidopa/Levodopa (Sinemet Cr 50/200(*)) 1 tab.cr PO TID [place] Enalapril Maleate (Vasotec Tab*) 5 mg PO DAILY [place] Folic Acid (Folvite Tab*) 1 mg PO DAILY [place] Guaifenesin (Robitussin*) 5 ml PO Q6H PRN Heparin Sodium (Porcine) (Heparin Vial(*)) 5,000 units SUBCUT Q8HR [place] Levothyroxine Sodium (Synthroid Tab*) 50 mcg PO DAILY@0600 [place] Lidocaine (Lidoderm 5% Patch*) 1 patch TRANSDERM DAILY PRN Methotrexate (Methotrexate Tab*) 7.5 mg PO Fr@0900 [place] Omeprazole (Prilosec Cap*) 20 mg PO DAILY [place] Ondansetron HCl (Zofran Inj*) 4 mg IV Q6H PRN Oxycodone/Acetaminophen (Percocet 5/325 Tab*) 0.5 tab PO Q8H PRN Pharmacy Profile Note (Lidocaine Patch Remove*) 1 note PATCH OFF 2100 [place] Tramadol HCl (Ultram*) 50 mg PO Q6H PRN Zolpidem Tartrate (Ambien Tab*) 5 mg PO BEDTIME PRN Vital Signs: Temp Pulse Resp BP Pulse Ox 99.0 F 105 32 133/80 92 05/16/17 08:01 05/16/17 08:01 05/16/17 08:33 05/16/17 08:01 05/16/17 08:33 Oxygen Devices in Use Now: Nasal Cannula Appearance: Elderly female lying in bed in NAD Eyes: No Scleral Icterus Ears/Nose/Mouth/Throat: NL Teeth, Lips, Gums Neck: Trachea Midline Respiratory: Symmetrical Chest Expansion and Respiratory Effort, - - Diminished , minimal crackles in bases Cardiovascular: NL Sounds; No Murmurs; No JVD, No Edema Abdominal: NL Sounds; No Tenderness; No Distention Lymphatic: No Cervical Adenopathy Extremities: No Edema Skin: No Rash or Ulcers Neurological: Alert and Oriented x 3, NL Muscle Strength and Tone Nutrition: Taking PO's Result Diagrams: 05/16/17 06:02 05/16/17 06:02 Additional Lab and Data: . Microbiology and Other Data: . Assess/Plan/Problems-Billing Assessment: Ms. Tee is an 86 yo female with a PMH of parkinson's, hypertension, and RA on methotrexate who was admitted on 05/15/17 with weakness, falls and new afib ( rate controlled) with suspected viral illness. - Patient Problems (1) Hypoxia Comment: - New hypoxia with tachypnea and tachycardia. Chest xray showed pulmonary edema - Resolved with IV lasix. (2) Cough Comment: - Patient reported new cough prior to admission. - ESR and CRP mildly elevated (does have RA), but afebrile. Suspect viral illness as chest xray on arrival was clear. (3) Afib Comment: - New onset afib noted at last ED visit on 05/10/17. - HR 110s, start low dose metoprolol. - May be contributing to weakness. - Plan for echo. (4) Weakness Comment: - Acute generalized weakness suspect either secondary to viral illness or afib. - PT ordered. (5) Hypertension Comment: - Continue amlodipine, hold enalapril during acute illness. - Start metoprolol for rate control of afib. (6) Parkinson disease Comment: - Continue sinemet. (7) Hypothyroidism Comment: - Continue levothyroxine (8) Rheumatoid arthritis Comment: - Hold methotrexate with acute illness. (9) DVT prophylaxis Comment: - Heparin SQ. (10) DNR (do not resuscitate) Comment: Status and Disposition: Switch to inpatient. Anticipate will need placement or LOUIE at discharge.
[2017-05-16] MEDS ORDERED: Enalapril TAB* 5 MG PO SCH (09:00)
[2017-05-16] MEDS ORDERED: Furosemide IV* 10 MG/ML 2 ML VIAL (20 MG) IV ONE (09:25)
--- NOTE | 2017-05-16 09:37 | RAD ---
Indication: Cough, hypoxia. Congestive heart failure. Respiratory disease. Comparison: May 15, 2017 Technique: Upright AP 0907 hours Report: Cardiomegaly, prominent ill-defined central pulmonary vasculature with perihilar alveolar opacities, diffuse prominence of the interstitial markings with thickened peripheral intralobular septa, small bilateral pleural effusions. Negative for pneumothorax. Unchanged prominence of the aortic arch. IMPRESSION: Alveolar and interstitial pulmonary edema with associated pleural effusions with interval worsening.
[2017-05-16] MEDS ORDERED: Metoprolol Tartrate TAB* 25 MG PO ONE (16:55)
[2017-05-16] MEDS: Metoprolol Tartrate TAB* 25 MG PO SCH (20:43)
[2017-05-16] MEDS: Lidocaine Patch REMOVE* 1 NOTE MISC PATCH OFF SCH ×2 (20:48→20:49)
[2017-05-16] MEDS ORDERED: Metoprolol Tartrate TAB* 25 MG PO SCH (21:00)
[2017-05-16] MEDS: Ondansetron INJ* 2 MG/ML VIAL IV PRN (21:36)
[2017-05-16] MEDS: Acetaminophen TAB* 325 MG PO PRN (21:36)
[2017-05-17] MEDS ORDERED: NS 0.9% 500 ML* 500 ML IV ONE (04:30)
[2017-05-17] MEDS: Levothyroxine TAB* 50 MCG TAB PO SCH (05:01)
[2017-05-17] MEDS: oxyCODONE/Acetamin 5/325 MG* TAB PO PRN (05:02)
[2017-05-17] MEDS: Heparin VIAL(*) 5000 UNITS/ML VIAL (FIVE THOUSAND) SUBCUT SCH ×3 (05:02→22:22)
--- NOTE | 2017-05-17 08:25 | PN ---
Subjective Date of Service: 05/17/17 Interval History: Ms. Tee states that she feeling ok today but she does feel drowsy. She denies chest pain, SOB, nausea, or abdominal pain and is tolerating oral intake well. Objective Active Medications: Acetaminophen (Tylenol Tab*) 650 mg PO Q6H PRN Amlodipine Besylate (Norvasc Tab*) 2.5 mg PO DAILY [facility] Aspirin (Aspirin Ec Tab*) 81 mg PO DAILY [facility] Benzonatate (Tessalon Cap*) 100 mg PO BID PRN Carbidopa/Levodopa (Sinemet Cr 50/200(*)) 1 tab.cr PO TID [place] Folic Acid (Folvite Tab*) 1 mg PO DAILY [place] Guaifenesin (Robitussin*) 5 ml PO Q6H PRN Heparin Sodium (Porcine) (Heparin Vial(*)) 5,000 units SUBCUT Q8HR [facility] Levothyroxine Sodium (Synthroid Tab*) 50 mcg PO DAILY@0600 [place] Lidocaine (Lidoderm 5% Patch*) 1 patch TRANSDERM DAILY PRN Metoprolol Tartrate (Lopressor Tab*) 12.5 mg PO Q12HR [place] Omeprazole (Prilosec Cap*) 20 mg PO DAILY [place] Ondansetron HCl (Zofran Inj*) 4 mg IV Q6H PRN Oxycodone/Acetaminophen (Percocet 5/325 Tab*) 0.5 tab PO Q8H PRN Pharmacy Profile Note (Lidocaine Patch Remove*) 1 note PATCH OFF 2100 [place] Tramadol HCl (Ultram*) 50 mg PO Q6H PRN Zolpidem Tartrate (Ambien Tab*) 5 mg PO BEDTIME PRN Vital Signs - 8 hr 05/17/17 05/17/17 05/17/17 00:40 03:51 05:02 Temperature 97.4 F Pulse Rate 60 Respiratory 18 20 Rate Blood Pressure 112/67 (mmHg) O2 Sat by Pulse 96 94 Oximetry 05/17/17 05/17/17 05/17/17 07:49 07:54 07:59 Temperature 98.3 F Pulse Rate 86 Respiratory 16 24 24 Rate Blood Pressure 111/64 (mmHg) O2 Sat by Pulse 97 Oximetry Oxygen Devices in Use Now: Nasal Cannula Appearance: Elderly female sitting up in chair eating breakfast in NAD Eyes: No Scleral Icterus Ears/Nose/Mouth/Throat: Mucous Membranes Moist Neck: Trachea Midline Respiratory: Symmetrical Chest Expansion and Respiratory Effort, - - fine crackles in bases bilaterally Cardiovascular: NL Sounds; No Murmurs; No JVD, No Edema Abdominal: NL Sounds; No Tenderness; No Distention Lymphatic: No Cervical Adenopathy Extremities: No Edema Skin: No Rash or Ulcers Neurological: Alert and Oriented x 3, NL Muscle Strength and Tone Nutrition: Taking PO's Result Diagrams: 05/16/17 06:02 05/16/17 06:02 Additional Lab and Data: . Microbiology and Other Data: . Assess/Plan/Problems-Billing Assessment: Ms. Tee is an 86 yo female with a PMH of parkinson's, hypertension, chronic systolic CHF, and RA on methotrexate who was admitted on 05/15/17 with weakness, falls and new afib (rate controlled) with suspected viral illness. - Patient Problems (1) Cough Comment: - Patient reported new cough prior to admission. - ESR and CRP mildly elevated (does have RA), but afebrile. Suspect viral illness as chest xray on arrival was clear. (2) Afib Comment: - New onset afib noted at last ED visit on 05/10/17. - HR better controlled on low dose metoprolol. - May be contributing to weakness. - Echo pending. - Not a candidate for anticoagulation due to history of GI bleeding while on anticoagulation in the past for PE. (3) Weakness Comment: - Acute generalized weakness suspect either secondary to viral illness or afib. - PT ordered. (4) Acute on chronic systolic (congestive) heart failure Comment: - Resolved with IV lasix x 1, suspect due to pulmonary edema from IV fluids. - Last documented EF 35-40% in 2011. - Echo pending. (5) Drowsiness Comment: - Hold ambien - Awakens easily to voice and answers questions appropriately. (6) Hypertension Comment: - Continue amlodipine and metoprolol (newly started this admission), hold enalapril during acute illness. (7) Parkinson disease Comment: - Continue sinemet. (8) Hypothyroidism Comment: - Continue levothyroxine (9) Rheumatoid arthritis Comment: - Hold methotrexate with acute illness. (10) DVT prophylaxis Comment: - Heparin SQ. (11) DNR (do not resuscitate) Comment: Status and Disposition: Switch to inpatient. Anticipate will need placement or [facility] at discharge.
[2017-05-17] MEDS: Carbidopa/Levodop CR 50/200(*) TAB.CR PO SCH ×3 (08:27→22:22)
[2017-05-17] MEDS: Folic Acid TAB* 1 MG PO SCH (08:27)
[2017-05-17] MEDS: amLODIPine TAB* 5 MG PO SCH (08:28)
[2017-05-17] MEDS: Aspirin EC TAB* 81 MG TAB.EC PO SCH (08:28)
[2017-05-17] MEDS: Metoprolol Tartrate TAB* 25 MG PO SCH ×2 (08:28→22:21)
[2017-05-17] MEDS: Omeprazole CAP* 20 MG PO SCH (08:28)
[2017-05-17] MEDS: traMADol TAB* 50 MG PO PRN ×2 (12:48→23:48)
[2017-05-17] MEDS: Lidocaine Patch REMOVE* 1 NOTE MISC PATCH OFF SCH (23:26)
[2017-05-18] MEDS: Levothyroxine TAB* 50 MCG TAB PO SCH (05:50)
[2017-05-18] MEDS: Heparin VIAL(*) 5000 UNITS/ML VIAL (FIVE THOUSAND) SUBCUT SCH ×3 (05:56→21:12)
[2017-05-18 08:51] LABS: ABS Basophils 0 10^3/ul (0-0.2); ABS Eosinophils 0 10^3/ul (0-0.6); ABS Lymphocytes 0.7 10^3/ul (1.0-4.8); ABS Monocytes 0.2 10^3/ul (0-0.8); ABS Neutrophils 6.6 10^3/ul (1.5-7.7); ABS Nucleated RBC 0 10^3/ul; Eosinophil % 0.4 % (0-6); Hematocrit 43 % (35-47); Hemoglobin 14.5 g/dl (12.0-16.0); Lymphocyte % 9.8 % (25-47); Mean Corpuscular HGB Conc 34 g/dl (31-36); Mean Corpuscular Hemoglobin 35 pg (27-31); Mean Corpuscular Volume 103 fL (80-97); Mean Platelet Volume 9.3 um3 (7.4-10.4); Nucleated Red Blood Cells % 0.1; Platelet Count 202 10^3/ul (150-450); Red Blood Count 4.19 10^6/ul (4.0-5.4); Red Cell Distribution Width 15 % (10.5-15); White Blood Count 7.5 10^3/ul (3.5-10.8)
--- NOTE | 2017-05-18 08:51 | PN ---
Subjective Date of Service: 05/18/17 Interval History: c/o increased shortness of breath,and nasal congestion. Denies chest pain or abd pain. Denies n/v/d. Family History: Unchanged from Admission Social History: Unchanged from Admission Past Medical History: Unchanged from Admission Objective Active Medications: Acetaminophen (Tylenol Tab*) 650 mg PO Q6H PRN PRN Reason: PAIN Last Admin: 05/16/17 21:36 Dose: 650 mg Amlodipine Besylate (Norvasc Tab*) 2.5 mg PO DAILY [facility] Last Admin: 05/17/17 08:28 Dose: 2.5 mg Aspirin (Aspirin Ec Tab*) 81 mg PO DAILY [facility] Last Admin: 05/17/17 08:28 Dose: 81 mg Benzonatate (Tessalon Cap*) 100 mg PO BID PRN PRN Reason: COUGH Carbidopa/Levodopa (Sinemet Cr 50/200(*)) 1 tab.cr PO TID [facility] Last Admin: 05/17/17 22:22 Dose: 1 tab.cr Folic Acid (Folvite Tab*) 1 mg PO DAILY [facility] Last Admin: 05/17/17 08:27 Dose: 1 mg Guaifenesin (Robitussin*) 5 ml PO Q6H PRN PRN Reason: COUGH Heparin Sodium (Porcine) (Heparin Vial(*)) 5,000 units SUBCUT Q8HR [facility] Last Admin: 05/18/17 05:56 Dose: 5,000 units Levothyroxine Sodium (Synthroid Tab*) 50 mcg PO DAILY@0600 [facility] Last Admin: 05/18/17 05:50 Dose: 50 mcg Lidocaine (Lidoderm 5% Patch*) 1 patch TRANSDERM DAILY PRN PRN Reason: PAIN Metoprolol Tartrate (Lopressor Tab*) 12.5 mg PO Q12HR [facility] Last Admin: 05/17/17 22:21 Dose: 12.5 mg Omeprazole (Prilosec Cap*) 20 mg PO DAILY [facility] Last Admin: 05/17/17 08:28 Dose: 20 mg Ondansetron HCl (Zofran Inj*) 4 mg IV Q6H PRN PRN Reason: NAUSEA Last Admin: 05/16/17 21:36 Dose: 4 mg Oxycodone/Acetaminophen (Percocet 5/325 Tab*) 0.5 tab PO Q8H PRN PRN Reason: PAIN Last Admin: 05/17/17 05:02 Dose: 0.5 tab Pharmacy Profile Note (Lidocaine Patch Remove*) 1 note PATCH OFF 2100 [place] Last Admin: 05/17/17 23:26 Dose: Not Given Tramadol HCl (Ultram*) 50 mg PO Q6H PRN PRN Reason: PAIN Last Admin: 05/17/17 23:48 Dose: 50 mg Vital Signs - 8 hr 05/18/17 05/18/17 05/18/17 01:48 03:03 07:56 Temperature 98.4 F 100.4 F Pulse Rate 88 107 Respiratory 22 20 18 Rate Blood Pressure 116/74 143/78 (mmHg) O2 Sat by Pulse 96 94 Oximetry 05/18/17 08:08 Temperature Pulse Rate Respiratory 38 Rate Blood Pressure (mmHg) O2 Sat by Pulse Oximetry Oxygen Devices in Use Now: Simple Face Mask Appearance: elderly female, mild respiratory distress, speaking in short sentences Eyes: No Scleral Icterus Ears/Nose/Mouth/Throat: Clear Oropharnyx, Mucous Membranes Moist Neck: NL Appearance and Movements; NL JVP, Trachea Midline Respiratory: Symmetrical Chest Expansion and Respiratory Effort, - - diminished , course rhonchi bilat,cracles at the bases, moist congested cough, moderate resp distress Cardiovascular: NL Sounds; No Murmurs; No JVD, No Edema Abdominal: NL Sounds; No Tenderness; No Distention Extremities: No Edema, No Clubbing, Cyanosis Skin: No Rash or Ulcers Neurological: Alert and Oriented x 3 Nutrition: Taking PO's Result Diagrams: 05/18/17 08:34 05/19/17 08:06 Additional Lab and Data: . Microbiology and Other Data: . Assess/Plan/Problems-Billing Assessment: Ms. Tee is an 86 yo female with a PMH of parkinson's, hypertension, chronic systolic CHF, and RA on methotrexate who was admitted on 05/15/17 with weakness, falls and new afib (rate controlled) with suspected viral illness. - Patient Problems (1) Respiratory failure Current Visit: Yes Status: Acute Code(s): J96.90 - RESPIRATORY FAILURE, UNSP , UNSP W HYPOXIA OR HYPERCAPNIA SNOMED Code(s): 187882700 Comment: Acute respiratory failure - Suspect this is related to her acute/ chronic CHF- chest xray worsen CHF today and possible RLL consolidation - given her low grade fever this AM suspect she may be developing underlying pneumonia as well. - will start ceftriaxone and azithromycin -will give 40 mg lasix IVP - will transfer to ICU for high flow o2 - advance directives discussed with patient and son - patient wishes to be DNR/ DNI MOLST form updated to reflect wishes. (2) Acute on chronic systolic (congestive) heart failure Current Visit: Yes Status: Acute Code(s): I50.23 - ACUTE ON CHRONIC SYSTOLIC (CONGESTIVE) HEART FAILURE SNOMED Code(s): 464226470 Comment: - Shortness of breath this AM, moist congested cough - Chest x ray pending- - Echo- new severe MR (3) Afib Current Visit: Yes Status: Acute Code(s): I48.91 - UNSPECIFIED ATRIAL FIBRILLATION SNOMED Code(s): 73592326 Comment: - New onset afib noted at last ED visit on 05/10/17. - HR increased - suspect this is related to her shortness of breath and fever 100.4 - May be contributing to weakness. - Echo - Not a candidate for anticoagulation due to history of GI bleeding while on anticoagulation in the past for PE. (4) Cough Current Visit: Yes Status: Acute Code(s): R05 - COUGH SNOMED Code(s): 79041170 Comment: - Patient reported new cough prior to admission. - ESR and CRP mildly elevated (does have RA), but afebrile. - Chest xray - worsening CHF, poss RLL consolidation (5) Hypertension Current Visit: Yes Status: Acute Code(s): I10 - ESSENTIAL (PRIMARY) HYPERTENSION SNOMED Code(s): 01908359 Comment: - Continue amlodipine and metoprolol (newly started this admission), hold enalapril during acute illness. (6) Hypothyroidism Current Visit: Yes Status: Acute Code(s): E03.9 - HYPOTHYROIDISM, UNSPECIFIED SNOMED Code(s): 98425288 Comment: - Continue levothyroxine (7) Parkinson disease Current Visit: Yes Status: Acute Code(s): G20 - PARKINSON'S DISEASE SNOMED Code(s): 34362420 Comment: - Continue sinemet. (8) Rheumatoid arthritis Current Visit: Yes Status: Acute Code(s): M06.9 - RHEUMATOID ARTHRITIS, UNSPECIFIED SNOMED Code(s): 67871155 Comment: - Hold methotrexate with acute illness. (9) Weakness Current Visit: Yes Status: Acute Code(s): R53.1 - WEAKNESS SNOMED Code(s) : 28623489 Comment: - Acute generalized weakness suspect either secondary to viral illness or afib. - could be related to severe MR as well as tachypnea - possible RLL consolidation. (10) DVT prophylaxis Current Visit: Yes Status: Acute Code(s): NXJ5949 - SNOMED Code(s): 144731571 Comment: - Heparin SQ. (11) DNR (do not resuscitate) Current Visit: Yes Status: Acute Comment: Status and Disposition: Switch to inpatient. transferred to ICU
[2017-05-18 08:59] LABS: EGFR Non-African American 64.1 (>60)
--- NOTE | 2017-05-18 09:20 | RAD ---
Indication: Shortness of breath. Single frontal view of the chest performed at 0900 hours was reviewed. Comparison is made with previous exam dated May 16, 2017. Cardiomegaly is noted. Interstitial edema consistent with CHF is noted. Bilateral pleural effusions are noted which are increasing since May 16, 2017. I cannot underlying consolidation of the right lower lobe. IMPRESSION: PROGRESSIVE CHF. THERE IS LIKELY RIGHT LOWER LOBE CONSOLIDATION NOTED.
--- NOTE | 2017-05-18 09:33 | ECHO ---
Patient: JACQUELINE THOMPSON [facility] Rec#: [id number] : 1930 Date: 05/18/2017 Age: 86y Height: 165.1 cm / 65.0 in Weight: 56.7 kg / 125.0 lbs Sex: F BSA: 1.62 Room#: [facility] Admit Date#: 05/15/2017 Type: Inpatient Referring: Nahomi Lyman NP Reading: Harris Enrique DO Junior Engineer: Haylie James RDCS CC: Nasrin Bowman MD Transthoracic Echocardiogram Indication: New A-fib BP: 116/74 HR: 108 Rhythm: A-Fib Findings History: Parkinson's, HTN,rheumatoid arthritis,CHF. Technical Comments: The study quality is fair. Patient was tachyepnic during study. Left Ventricle: The left ventricular chamber size is normal. Mild to moderate concentric left ventricular hypertrophy is observed. There is global hypokinesis of the left ventricle with minor regional variation.LVEF moderately reduced at 40%, difficult to estimate due atrial fibrillaiton with elevated HR at time of study. The assessment of diastolic function is non-diagnostic. The patient was unable to perform a Valsalva maneuver. Left Atrium: The left atrium is severely dilated. Right Ventricle: The right ventricular cavity size is normal. The right ventricular global systolic function is mildly reduced. Right Atrium: The right atrium is mildly dilated. Aortic Valve: The aortic valve is trileaflet. The aortic valve leaflets are mildly thickened. Systolic excursion of the non coronary cusp is reduced. There is moderate aortic regurgitation. There is mild aortic stenosis. Mitral Valve: Moderate mitral annular calcification present. There is severe mitral regurgitation. that is highly eccentric. Mechanism on transthoracic imaging not well evaluated, consider restricted posterior leaflet closing. Calculated EOA 0.7 cm2 with regurgitant volume 101 ml. The mitral regurgitant jet is laterally directed. There is no evidence of mitral stenosis. Tricuspid Valve: The tricuspid valve leaflets are normal. There is mild to moderate tricuspid regurgitation. There is evidence of moderate pulmonary hypertension. There is no tricuspid stenosis. Pulmonic Valve: The pulmonic valve appears normal. There is moderate pulmonic regurgitation. There is no pulmonic stenosis. Pericardium: There is no significant pericardial effusion.Pleural effusion noted A left pleural effusion is present. Aorta: There is moderate dilatation of the ascending aorta., at least moderately dilated at 4.9 cm, the more distal portion of the ascending aorta is not well visualized. There is atherosclerotic plaque noted in the ascending aorta. There is no dilatation of the aortic arch. There is no dilation of the aortic root. Pulmonary Artery: The main pulmonary artery appears normal. Venous: The inferior vena cava is dilated. There is no change in the dimension of the inferior vena cava with respiration consistent with markedly increased right atrial pressure. Conclusions The left ventricular chamber size is normal. Mild to moderate concentric left ventricular hypertrophy is observed. There is global hypokinesis of the left ventricle with minor regional variation LVEF reduced at 40%, difficult to estimate LVEF due atrial fibrillaiton with elevated HR at time of study. Normal RV size with mildly reduced function The left atrium is severely dilated. There is moderate aortic regurgitation. There is mild aortic stenosis that may be significantly underestimated in severity. There is highly eccentric severe mitral regurgitation, mechanism on transthoracic imaging not well evaluated Mild to moderate tricuspid regurgitation There is evidence of moderate pulmonary hypertension. Pleural effusion noted. Compared to prior study from 02/2012, the most significant change is the new presence of severe mitral regurgitation. Measurements Name Value Normal Range RVIDd (AP) 2D 2.1 cm (0.9 - 2.6) RVDdMajor (2D) 3.8 cm (2.2 - 4.4) RAd ISD 4CH 4.7 cm (3.4 - 4.9) RA (A4C)W 3.8 cm (2.9 - 4.6) IVSd (2D) 1.3 cm (0.6 - 1) LVPWd (2D) 1.3 cm (0.6 - 1) LVIDd (2D) 4.7 cm (3.6 - 5.4) LVIDs (2D) 3.4 cm - LV FS (2D) 27 % (25 - 45) Aortic Annulus 2.1 cm (1.4 - 2.6) Ao root diameter (2D) 3.1 cm (2.1 - 3.5) Ascending Ao 4.9 cm (2.1 - 3.4) Aortic arch 2.6 cm (1.8 - 3.4) Descending Ao 0.2 cm - LAd ISD 4CH 5.3 cm (2.9 - 5.3) LA ISD 4CH W 5.5 cm (2.5 - 4.5) Name Value Normal Range LA ESV SP 4CH (A/L) 116 ml - LA ESV BP (A/L) index 72 ml/m2 - LA ESV SP 4CH (MOD) 100 ml - Name Value Normal Range MV E-wave Vmax 1.1 m/sec - MV deceleration time 135 msec - LV septal e' Vmax 0.06 m/sec - LV lateral e' Vmax 0.15 m/sec - LV E:e' septal ratio 18.33 ratio - LV E:e' lateral ratio 7.33 ratio - Name Value Normal Range AV Vmax 1.6 m/sec - AV VTI 24.9 cm - AV peak gradient 9.95 mmHg - AV mean gradient 4.5 mmHg - LVOT diameter 2.1 cm - LVOT Vmax 0.7 m/sec - LVOT VTI 11.4 cm - LVOT peak gradient 2.17 mmHg - LVOT mean gradient 1 mmHg - SV LVOT 107 ml - CHINTAN (continuity Vmax) 1.5 cm2 - CHINTAN (continuity VTI) 1.6 cm2 - AR PHT 334 msec - AR peak gradient 63.22 mmHg - Name Value Normal Range MR Vmax 5.1 m/sec - MR VTI 131 cm - MR flow (PISA) 380 ml/sec - MR ERO 0.74 cm2 - MR PISA radius 1.3 cm - MR alias Vmax 36 cm/sec - Name Value Normal Range TR Vmax 3.2 m/sec - TR peak gradient 40 mmHg - RAP 15 mmHg - RVSP 55 mmHg - IVC diameter 2.1 cm - Name Value Normal Range PV Vmax 0.7 m/sec - PV peak gradient 2.07 mmHg -
[2017-05-18] MEDS: amLODIPine TAB* 5 MG PO SCH (10:29)
[2017-05-18] MEDS: Aspirin EC TAB* 81 MG TAB.EC PO SCH (10:30)
[2017-05-18] MEDS: Acetaminophen TAB* 325 MG PO PRN ×2 (10:30→21:13)
[2017-05-18] MEDS: Metoprolol Tartrate TAB* 25 MG PO SCH ×2 (10:30→21:12)
[2017-05-18] MEDS: Folic Acid TAB* 1 MG PO SCH (10:30)
[2017-05-18] MEDS: Carbidopa/Levodop CR 50/200(*) TAB.CR PO SCH ×3 (10:30→21:11)
[2017-05-18] MEDS: Omeprazole CAP* 20 MG PO SCH (10:30)
[2017-05-18] MEDS ORDERED: Furosemide IV* 10 MG/ML VIAL (40 MG) IV ONE (10:49)
--- NOTE | 2017-05-18 10:58 | PN ---
Hospitalist Progress Note Date of Service: 05/18/17 HOSPITALIST ADDENDUM Patient seen and examined at bedside with Thais Hendricks INDUSTRIAL ENGINEERING TECHNICIAN due to worsening dyspnea. Ms Carlos is an 86yo F with PMH of systolic CHF, Parkinson's, RA on MTX, admitted with dyspnea, cough, and low grade temperature felt to be secondary to viral illness. She also had signs of fluid overload. Today she's more dyspneic, with visible work of breathing. Denies chest pain and feels her cough is unchanged. CxR looks worse today with RLL infiltrate and effusion. Lung sounds are course on auscultation bilaterally and decreased on right base. She would benefit of transfer to ICU for Vapotherm to decrease her work of breathing, diuresis with Furosemide and treatment of her pneumonia with Levofloxacin. She's a DNR and we will contact her son to help her about decision making on how aggressive she want us to be with her care.
[2017-05-18] MEDS ORDERED: Levofloxacin 500 MG IVPREMIX(* 500 MG/100 ML BAG IVPB SCH (12:00)
[2017-05-18] MEDS: Azithromycin IV(*) 500 MG in NS 0.9% 250 ML* 250 ML IVPB SCH (13:31)
[2017-05-18] MEDS: cefTRIAXone 1000 MG SYRINGE IVPB Q24H (in NaCl) IVPB SCH ×2 (14:51)
[2017-05-18] MEDS: Lidocaine Patch REMOVE* 1 NOTE MISC PATCH OFF SCH (21:11)
[2017-05-18] MEDS: oxyCODONE/Acetamin 5/325 MG* TAB PO PRN (21:13)
[2017-05-19] MEDS: Levothyroxine TAB* 50 MCG TAB PO SCH (06:46)
[2017-05-19] MEDS: Heparin VIAL(*) 5000 UNITS/ML VIAL (FIVE THOUSAND) SUBCUT SCH ×3 (06:46→21:15)
[2017-05-19] MEDS: Carbidopa/Levodop CR 50/200(*) TAB.CR PO SCH ×3 (08:13→21:15)
[2017-05-19] MEDS: Aspirin EC TAB* 81 MG TAB.EC PO SCH (08:14)
[2017-05-19] MEDS: Metoprolol Tartrate TAB* 25 MG PO SCH ×2 (08:15→21:15)
[2017-05-19] MEDS: amLODIPine TAB* 5 MG PO SCH (08:15)
[2017-05-19] MEDS: Omeprazole CAP* 20 MG PO SCH (08:15)
[2017-05-19] MEDS: Folic Acid TAB* 1 MG PO SCH (08:15)
[2017-05-19 08:45] LABS: EGFR Non-African American 62.4 (>60)
[2017-05-19] MEDS ORDERED: Furosemide IV* 10 MG/ML VIAL (40 MG) IV ONE (08:53)
--- NOTE | 2017-05-19 09:11 | PN ---
Subjective Date of Service: 05/19/17 Interval History: continues to report shortness of breath. appears tired, denies chest pain or shortness of breath. denies abd pain n/v/d Family History: Unchanged from Admission Social History: Unchanged from Admission Past Medical History: Unchanged from Admission Objective Active Medications: Acetaminophen (Tylenol Tab*) 650 mg PO Q6H PRN PRN Reason: PAIN Last Admin: 05/18/17 21:13 Dose: 650 mg Amlodipine Besylate (Norvasc Tab*) 2.5 mg PO DAILY [facility] Last Admin: 05/19/17 08:15 Dose: 2.5 mg Aspirin (Aspirin Ec Tab*) 81 mg PO DAILY [facility] Last Admin: 05/19/17 08:14 Dose: 81 mg Benzonatate (Tessalon Cap*) 100 mg PO BID PRN PRN Reason: COUGH Carbidopa/Levodopa (Sinemet Cr 50/200(*)) 1 tab.cr PO TID [facility] Last Admin: 05/19/17 08:13 Dose: 1 tab.cr Folic Acid (Folvite Tab*) 1 mg PO DAILY [facility] Last Admin: 05/19/17 08:15 Dose: 1 mg Guaifenesin (Robitussin*) 5 ml PO Q6H PRN PRN Reason: COUGH Heparin Sodium (Porcine) (Heparin Vial(*)) 5,000 units SUBCUT Q8HR [facility] Last Admin: 05/19/17 06:46 Dose: 5,000 units Azithromycin 500 mg/ Sodium (Chloride) 250 mls @ 250 mls/hr IVPB Q24H [facility] Last Admin: 05/18/17 13:31 Dose: 250 mls/hr Ceftriaxone Sodium 1,000 mg/ (Sodium Chloride) 10 mls @ 40 mls/hr IVPB Q24H [facility] Last Admin: 05/18/17 14:51 Dose: 40 mls/hr Levothyroxine Sodium (Synthroid Tab*) 50 mcg PO DAILY@0600 [facility] Last Admin: 05/19/17 06:46 Dose: 50 mcg Lidocaine (Lidoderm 5% Patch*) 1 patch TRANSDERM DAILY PRN PRN Reason: PAIN Metoprolol Tartrate (Lopressor Tab*) 12.5 mg PO Q12HR [facility] Last Admin: 05/19/17 08:15 Dose: 12.5 mg Omeprazole (Prilosec Cap*) 20 mg PO DAILY [facility] Last Admin: 05/19/17 08:15 Dose: 20 mg Ondansetron HCl (Zofran Inj*) 4 mg IV Q6H PRN PRN Reason: NAUSEA Last Admin: 05/16/17 21:36 Dose: 4 mg Oxycodone/Acetaminophen (Percocet 5/325 Tab*) 0.5 tab PO Q8H PRN PRN Reason: PAIN Last Admin: 05/18/17 21:13 Dose: 0.5 tab Pharmacy Profile Note (Lidocaine Patch Remove*) 1 note PATCH OFF 2100 [facility] Last Admin: 05/18/17 21:11 Dose: 1 note Tramadol HCl (Ultram*) 50 mg PO Q6H PRN PRN Reason: PAIN Last Admin: 05/17/17 23:48 Dose: 50 mg Vital Signs - 8 hr 05/19/17 05/19/17 05/19/17 02:00 03:00 04:00 Temperature Pulse Rate 84 80 79 Respiratory 29 26 31 Rate Blood Pressure 118/79 119/76 107/64 (mmHg) O2 Sat by Pulse 98 99 94 Oximetry 05/19/17 05/19/17 05/19/17 05:00 06:00 07:00 Temperature Pulse Rate 81 84 84 Respiratory 12 33 30 Rate Blood Pressure 120/80 136/82 140/88 (mmHg) O2 Sat by Pulse 98 97 96 Oximetry 05/19/17 05/19/17 08:00 08:14 Temperature 98.8 F Pulse Rate 92 Respiratory 28 Rate Blood Pressure 143/95 (mmHg) O2 Sat by Pulse 95 Oximetry Oxygen Devices in Use Now: Simple Face Mask Appearance: frail elderly female sitting upright in bed, appears tired, moderate respiratory distress. Eyes: No Scleral Icterus Ears/Nose/Mouth/Throat: Clear Oropharnyx, Mucous Membranes Moist Neck: NL Appearance and Movements; NL JVP, Trachea Midline Respiratory: Symmetrical Chest Expansion and Respiratory Effort, - - tachypneic , ls diminished t/o continues to have a moist congested cough. Cardiovascular: No Edema, - - murmur, mild JVD, Abdominal: NL Sounds; No Tenderness; No Distention Extremities: No Clubbing, Cyanosis Skin: No Rash or Ulcers Neurological: Alert and Oriented x 3 Nutrition: Taking PO's Result Diagrams: 05/18/17 08:34 05/19/17 08:06 Additional Lab and Data: . Microbiology and Other Data: . Assess/Plan/Problems-Billing Assessment: Ms. Tee is an 86 yo female with a PMH of parkinson's, hypertension, chronic systolic CHF, and RA on methotrexate who was admitted on 05/15/17 with weakness, falls and new afib (rate controlled) with suspected viral illness. - Patient Problems (1) Respiratory failure Current Visit: Yes Status: Acute Code(s): J96.90 - RESPIRATORY FAILURE, UNSP , UNSP W HYPOXIA OR HYPERCAPNIA SNOMED Code(s): 684471424 Comment: Acute respiratory failure - Suspect this is related to her acute/ chronic CHF- chest xray worsen CHF today and possible RLL consolidation - given her low grade fever this AM suspect she may be developing underlying pneumonia as well. - will start ceftriaxone and azithromycin -will give 40 mg lasix IVP - will transfer to ICU for high flow o2 - advance directives discussed with patient and son - patient wishes to be DNR/ DNI MOLST form updated to reflect wishes. (2) Acute on chronic systolic (congestive) heart failure Current Visit: Yes Status: Acute Code(s): I50.23 - ACUTE ON CHRONIC SYSTOLIC (CONGESTIVE) HEART FAILURE SNOMED Code(s): 269676200 Comment: - Shortness of breath this AM, moist congested cough - Chest x ray pending- - Echo- new severe MR (3) Afib Current Visit: Yes Status: Acute Code(s): I48.91 - UNSPECIFIED ATRIAL FIBRILLATION SNOMED Code(s): 92346355 Comment: - New onset afib noted at last ED visit on 05/10/17. - HR increased - suspect this is related to her shortness of breath and fever 100.4 - May be contributing to weakness. - Echo - Not a candidate for anticoagulation due to history of GI bleeding while on anticoagulation in the past for PE. (4) Cough Current Visit: Yes Status: Acute Code(s): R05 - COUGH SNOMED Code(s): 20504483 Comment: - Patient reported new cough prior to admission. - ESR and CRP mildly elevated (does have RA), but afebrile. - Chest xray - worsening CHF, poss RLL consolidation (5) Hypertension Current Visit: Yes Status: Acute Code(s): I10 - ESSENTIAL (PRIMARY) HYPERTENSION SNOMED Code(s): 13366287 Comment: - Continue amlodipine and metoprolol (newly started this admission), hold enalapril during acute illness. (6) Hypothyroidism Current Visit: Yes Status: Acute Code(s): E03.9 - HYPOTHYROIDISM, UNSPECIFIED SNOMED Code(s): 61417110 Comment: - Continue levothyroxine (7) Parkinson disease Current Visit: Yes Status: Acute Code(s): G20 - PARKINSON'S DISEASE SNOMED Code(s): 12261939 Comment: - Continue sinemet. (8) Rheumatoid arthritis Current Visit: Yes Status: Acute Code(s): M06.9 - RHEUMATOID ARTHRITIS, UNSPECIFIED SNOMED Code(s): 50215334 Comment: - Hold methotrexate with acute illness. (9) Weakness Current Visit: Yes Status: Acute Code(s): R53.1 - WEAKNESS SNOMED Code(s) : 72666873 Comment: - Acute generalized weakness suspect either secondary to viral illness or afib. - could be related to severe MR as well as tachypnea - possible RLL consolidation. (10) DVT prophylaxis Current Visit: Yes Status: Acute Code(s): WTL5709 - SNOMED Code(s): 746833112 Comment: - Heparin SQ. (11) DNR (do not resuscitate) Current Visit: Yes Status: Acute Comment: Status and Disposition: Switch to inpatient. transferred to ICU
[2017-05-19] MEDS: Azithromycin IV(*) 500 MG in NS 0.9% 250 ML* 250 ML IVPB SCH (12:47)
[2017-05-19] MEDS: cefTRIAXone 1000 MG SYRINGE IVPB Q24H (in NaCl) IVPB SCH ×2 (12:49)
[2017-05-19] MEDS: Acetaminophen TAB* 325 MG PO PRN ×2 (13:11→21:16)
[2017-05-19] MEDS: Ondansetron INJ* 2 MG/ML VIAL IV PRN (13:23)
--- NOTE | 2017-05-19 18:22 | PN ---
Subjective Date of Service: 05/19/17 Interval History: Continues to c/o increased shortness of breath. denies chest pain or abd pain, denies n/v/d. Family History: Unchanged from Admission Social History: Unchanged from Admission Past Medical History: Unchanged from Admission Objective Active Medications: Acetaminophen (Tylenol Tab*) 650 mg PO Q6H PRN PRN Reason: PAIN Last Admin: 05/19/17 13:11 Dose: 650 mg Amlodipine Besylate (Norvasc Tab*) 2.5 mg PO DAILY [facility] Last Admin: 05/19/17 08:15 Dose: 2.5 mg Aspirin (Aspirin Ec Tab*) 81 mg PO DAILY [facility] Last Admin: 05/19/17 08:14 Dose: 81 mg Benzonatate (Tessalon Cap*) 100 mg PO BID PRN PRN Reason: COUGH Carbidopa/Levodopa (Sinemet Cr 50/200(*)) 1 tab.cr PO TID [facility] Last Admin: 05/19/17 12:48 Dose: 1 tab.cr Folic Acid (Folvite Tab*) 1 mg PO DAILY [facility] Last Admin: 05/19/17 08:15 Dose: 1 mg Furosemide (Lasix Iv*) 40 mg IV Q12H [facility] Guaifenesin (Robitussin*) 5 ml PO Q6H PRN PRN Reason: COUGH Heparin Sodium (Porcine) (Heparin Vial(*)) 5,000 units SUBCUT Q8HR [facility] Last Admin: 05/19/17 12:55 Dose: 5,000 units Azithromycin 500 mg/ Sodium (Chloride) 250 mls @ 250 mls/hr IVPB Q24H [facility] Last Admin: 05/19/17 12:47 Dose: 250 mls/hr Ceftriaxone Sodium 1,000 mg/ (Sodium Chloride) 10 mls @ 40 mls/hr IVPB Q24H [facility] Last Admin: 05/19/17 12:49 Dose: 40 mls/hr Levothyroxine Sodium (Synthroid Tab*) 50 mcg PO DAILY@0600 [facility] Last Admin: 05/19/17 06:46 Dose: 50 mcg Lidocaine (Lidoderm 5% Patch*) 1 patch TRANSDERM DAILY PRN PRN Reason: PAIN Metoprolol Tartrate (Lopressor Tab*) 12.5 mg PO Q12HR [facility] Last Admin: 05/19/17 08:15 Dose: 12.5 mg Omeprazole (Prilosec Cap*) 20 mg PO DAILY [facility] Last Admin: 05/19/17 08:15 Dose: 20 mg Ondansetron HCl (Zofran Inj*) 4 mg IV Q6H PRN PRN Reason: NAUSEA Last Admin: 05/19/17 13:23 Dose: 4 mg Oxycodone/Acetaminophen (Percocet 5/325 Tab*) 0.5 tab PO Q8H PRN PRN Reason: PAIN Last Admin: 05/18/17 21:13 Dose: 0.5 tab Pharmacy Profile Note (Lidocaine Patch Remove*) 1 note PATCH OFF 2100 [facility] Last Admin: 05/18/17 21:11 Dose: 1 note Tramadol HCl (Ultram*) 50 mg PO Q6H PRN PRN Reason: PAIN Last Admin: 05/17/17 23:48 Dose: 50 mg Vital Signs - 8 hr 05/19/17 05/19/17 05/19/17 11:00 11:01 11:07 Temperature 100.2 F 100.4 F Pulse Rate 85 88 Respiratory 37 17 37 Rate Blood Pressure 125/73 (mmHg) O2 Sat by Pulse 97 97 Oximetry 05/19/17 05/19/17 05/19/17 12:00 13:00 14:00 Temperature 100.6 F 100.9 F 101.3 F Pulse Rate 96 88 98 Respiratory 21 28 27 Rate Blood Pressure 124/79 117/79 95/59 (mmHg) O2 Sat by Pulse 98 99 97 Oximetry 05/19/17 05/19/17 05/19/17 15:00 15:48 16:00 Temperature 101.1 F 100.8 F Pulse Rate 88 92 Respiratory 28 30 37 Rate Blood Pressure 106/68 101/65 (mmHg) O2 Sat by Pulse 96 96 Oximetry 05/19/17 05/19/17 17:00 18:00 Temperature 100.4 F 100.4 F Pulse Rate 90 91 Respiratory 23 20 Rate Blood Pressure 109/74 104/64 (mmHg) O2 Sat by Pulse 98 97 Oximetry Oxygen Devices in Use Now: Simple Face Mask Appearance: frail elderly female, in acute respiratory distress, appears tired and weak Eyes: PERRLA Ears/Nose/Mouth/Throat: Clear Oropharnyx, Mucous Membranes Moist Neck: NL Appearance and Movements; NL JVP, Trachea Midline Respiratory: Symmetrical Chest Expansion and Respiratory Effort, - - scattered rhonchi with diminished breath sounds t/o bilat, tachypneic, moderate resp distess Cardiovascular: No Edema, - - s1s2 irregular rate, murmur Abdominal: NL Sounds; No Tenderness; No Distention Extremities: No Edema, No Clubbing, Cyanosis Skin: No Rash or Ulcers Neurological: Alert and Oriented x 3 Nutrition: Taking PO's Result Diagrams: 05/18/17 08:34 05/19/17 08:06 Additional Lab and Data: . Microbiology and Other Data: . Assess/Plan/Problems-Billing Assessment: Ms. Tee is an 86 yo female with a PMH of parkinson's, hypertension, chronic systolic CHF, and RA on methotrexate who was admitted on 05/15/17 with weakness, falls and new afib (rate controlled) with suspected viral illness. - Patient Problems (1) Respiratory failure Current Visit: Yes Status: Acute Code(s): J96.90 - RESPIRATORY FAILURE, UNSP , UNSP W HYPOXIA OR HYPERCAPNIA SNOMED Code(s): 119900808 Comment: Acute respiratory failure - Suspect this is related to her acute/ chronic CHF- chest xray worsen CHF and possible RLL consolidation yesterday- remains tachypneic, weak, frail - continues with fever today suspect she may underlying pneumonia as well. - will continue ceftriaxone and azithromycin -will give 40 mg lasix IVP - will remain in the ICU for high flow o2 - does meet sepsis 2 criteria with fever of 101.1 and tachypnea suspect this is more than likely related to pneumonia - advance directives discussed with patient and son - patient wishes to be DNR/ DNI MOLST form updated to reflect wishes. (2) Acute on chronic systolic (congestive) heart failure Current Visit: Yes Status: Acute Code(s): I50.23 - ACUTE ON CHRONIC SYSTOLIC (CONGESTIVE) HEART FAILURE SNOMED Code(s): 068377666 Comment: - continue to have moderate shortness of breath, moist congested cough - Echo- new severe MR, Lvef 40 % - cardiology consulted- will increase lasix to 40 mg Q12 hours. Can medically optimize if patient improves may be a candidate for a mitral clip prodecure. At this time the patient is in very ctitical condition and her prognosis is poor. (3) Afib Current Visit: Yes Status: Acute Code(s): I48.91 - UNSPECIFIED ATRIAL FIBRILLATION SNOMED Code(s): 80084682 Comment: - New onset afib noted at last ED visit on 05/10/17. - HR increased - suspect this is related to her shortness of breath and fever - May be contributing to weakness. - Echo - severe new MR, LVEF 40% - Not a candidate for anticoagulation due to history of GI bleeding while on anticoagulation in the past for PE. (4) Cough Current Visit: Yes Status: Acute Code(s): R05 - COUGH SNOMED Code(s): 42099512 Comment: - Patient reported new cough prior to admission. - ESR and CRP mildly elevated (does have RA), but afebrile. - Chest xray - worsening CHF, poss RLL consolidation- continues with fever today (5) Hypertension Current Visit: Yes Status: Acute Code(s): I10 - ESSENTIAL (PRIMARY) HYPERTENSION SNOMED Code(s): 01731312 Comment: - Continue amlodipine and metoprolol (newly started this admission), hold enalapril during acute illness. (6) Hypothyroidism Current Visit: Yes Status: Acute Code(s): E03.9 - HYPOTHYROIDISM, UNSPECIFIED SNOMED Code(s): 39452205 Comment: - Continue levothyroxine (7) Parkinson disease Current Visit: Yes Status: Acute Code(s): G20 - PARKINSON'S DISEASE SNOMED Code(s): 05173654 Comment: - Continue sinemet. (8) Rheumatoid arthritis Current Visit: Yes Status: Acute Code(s): M06.9 - RHEUMATOID ARTHRITIS, UNSPECIFIED SNOMED Code(s): 77496221 Comment: - Hold methotrexate with acute illness. (9) Weakness Current Visit: Yes Status: Acute Code(s): R53.1 - WEAKNESS SNOMED Code(s) : 77697610 Comment: - Acute generalized weakness suspect either secondary to viral illness or afib. - could be related to severe MR as well as tachypnea - possible RLL consolidation. - patients condition is very critical at this time- prognosis is poor. (10) DVT prophylaxis Current Visit: Yes Status: Acute Code(s): MNO2875 - SNOMED Code(s): 331410244 Comment: - Heparin SQ. (11) DNR (do not resuscitate) Current Visit: Yes Status: Acute Comment: Status and Disposition: Switch to inpatient. ICU
[2017-05-19] MEDS: oxyCODONE/Acetamin 5/325 MG* TAB PO PRN (21:15)
[2017-05-19] MEDS: Furosemide IV* 10 MG/ML VIAL (40 MG) IV SCH (21:15)
[2017-05-19] MEDS: Lidocaine Patch REMOVE* 1 NOTE MISC PATCH OFF SCH (21:17)
[2017-05-20] MEDS: Heparin VIAL(*) 5000 UNITS/ML VIAL (FIVE THOUSAND) SUBCUT SCH ×3 (06:36→21:40)
[2017-05-20] MEDS: Levothyroxine TAB* 50 MCG TAB PO SCH (06:36)
[2017-05-20] MEDS: Metoprolol Tartrate TAB* 25 MG PO SCH ×2 (08:53→21:41)
[2017-05-20] MEDS: amLODIPine TAB* 5 MG PO SCH (08:54)
[2017-05-20] MEDS: Omeprazole CAP* 20 MG PO SCH (08:54)
[2017-05-20] MEDS: Folic Acid TAB* 1 MG PO SCH (08:54)
[2017-05-20] MEDS: Aspirin EC TAB* 81 MG TAB.EC PO SCH (08:55)
[2017-05-20] MEDS: Acetaminophen TAB* 325 MG PO PRN ×3 (08:55→21:41)
[2017-05-20] MEDS: Carbidopa/Levodop CR 50/200(*) TAB.CR PO SCH ×3 (08:55→21:41)
[2017-05-20] MEDS: Furosemide IV* 10 MG/ML VIAL (40 MG) IV SCH ×2 (08:56→21:40)
--- NOTE | 2017-05-20 09:02 | PN ---
Subjective Date of Service: 05/20/17 - CC: SOB Interval History: The patient states her breathing is no better, still very winded. + Orthopnea. Not hungry and not eating well. Medications Active Medications: Acetaminophen (Tylenol Tab*) 650 mg PO Q6H PRN PRN Reason: PAIN Last Admin: 05/19/17 21:16 Dose: 650 mg Amlodipine Besylate (Norvasc Tab*) 2.5 mg PO DAILY [facility] Last Admin: 05/19/17 08:15 Dose: 2.5 mg Aspirin (Aspirin Ec Tab*) 81 mg PO DAILY [facility] Last Admin: 05/19/17 08:14 Dose: 81 mg Benzonatate (Tessalon Cap*) 100 mg PO BID PRN PRN Reason: COUGH Carbidopa/Levodopa (Sinemet Cr 50/200(*)) 1 tab.cr PO TID [facility] Last Admin: 05/19/17 21:15 Dose: 1 tab.cr Folic Acid (Folvite Tab*) 1 mg PO DAILY [facility] Last Admin: 05/19/17 08:15 Dose: 1 mg Furosemide (Lasix Iv*) 40 mg IV Q12H [facility] Last Admin: 05/19/17 21:15 Dose: 40 mg Guaifenesin (Robitussin*) 5 ml PO Q6H PRN PRN Reason: COUGH Heparin Sodium (Porcine) (Heparin Vial(*)) 5,000 units SUBCUT Q8HR [facility] Last Admin: 05/20/17 06:36 Dose: 5,000 units Azithromycin 500 mg/ Sodium (Chloride) 250 mls @ 250 mls/hr IVPB Q24H [facility] Last Admin: 05/19/17 12:47 Dose: 250 mls/hr Ceftriaxone Sodium 1,000 mg/ (Sodium Chloride) 10 mls @ 40 mls/hr IVPB Q24H [facility] Last Admin: 05/19/17 12:49 Dose: 40 mls/hr Levothyroxine Sodium (Synthroid Tab*) 50 mcg PO DAILY@0600 [facility] Last Admin: 05/20/17 06:36 Dose: 50 mcg Lidocaine (Lidoderm 5% Patch*) 1 patch TRANSDERM DAILY PRN PRN Reason: PAIN Metoprolol Tartrate (Lopressor Tab*) 12.5 mg PO Q12HR [facility] Last Admin: 05/19/17 21:15 Dose: 12.5 mg Omeprazole (Prilosec Cap*) 20 mg PO DAILY [facility] Last Admin: 05/19/17 08:15 Dose: 20 mg Ondansetron HCl (Zofran Inj*) 4 mg IV Q6H PRN PRN Reason: NAUSEA Last Admin: 05/19/17 13:23 Dose: 4 mg Oxycodone/Acetaminophen (Percocet 5/325 Tab*) 0.5 tab PO Q8H PRN PRN Reason: PAIN Last Admin: 05/19/17 21:15 Dose: 0.5 tab Pharmacy Profile Note (Lidocaine Patch Remove*) 1 note PATCH OFF 2100 [facility] Last Admin: 05/19/17 21:17 Dose: 1 note Tramadol HCl (Ultram*) 50 mg PO Q6H PRN PRN Reason: PAIN Last Admin: 05/17/17 23:48 Dose: 50 mg Objective Vital Signs: Temp Pulse Resp BP Pulse Ox 100.2 F 94 27 116/87 94 05/20/17 07:00 05/20/17 07:00 05/20/17 07:00 05/20/17 07:00 05/20/17 07:00 Intake & Output 05/18/17 05/19/17 05/20/17 05/21/17 04:59 04:59 04:59 04:59 Intake Total 870 436 740 100 Output Total 200 1400 1400 Balance 670 436 -660 -1300 Weight 128 lb 8.472 oz 129 lb 13.636 oz Intake: IV Fluids 510 327 15 ABX - AZITHROMYCIN 15 NS (0.9%) 510 327 IVPB 9 250 ABX - AZITHROMYCIN 250 NS (0.9%) 9 Oral 360 100 475 100 Output: Urine 0 Castano 200 1400 1400 Other: Estimated Void Large Large Large # Bowel Movements 0 0 0 0 # Voids 1 2 1 Oxygen Devices in Use Now: High Flow Heated Nasal Cannula Appearance: Elderly female, sitting upright in bed, tachypnic, appears chronically ill. Eyes: No Scleral Icterus, PERRLA Ears/Nose/Mouth/Throat: NL Teeth, Lips, Gums, Clear Oropharnyx Neck: Trachea Midline, No Thyroid Enlargement, Masses Respiratory: - - Severely diminished breath sounds, crackels in the bases 1/[address] way up, prminent. Kyphoscoliosis noted. Cardiovascular: RRR - Loud systolic murmur heard at the apex radiating to axilla. No diastolic murmur heard, but high flow O2 noise impacts exam ability. Abdominal: - - mild RUQ tender, no HSM, but in bed upright for exam. Neurological: Alert and Oriented x 3 Lines/Tubes/Other Access: Clean, Dry and Intact Peripheral IV Laboratory Results: 05/18/17 08:34 05/19/17 08:06 INR (Anticoag Therapy) 0.99 (0.77-1.02) 05/15/17 12:10 APTT 27.1 seconds (26.0-36.3) 05/15/17 12:10 Total Bilirubin 0.90 mg/dL (0.2-1.0) 05/15/17 12:10 AST 33 U/L (13-39) 05/15/17 12:10 ALT 7 U/L (7-52) 05/15/17 12:10 Alkaline Phosphatase 82 U/L (34-104) 05/15/17 12:10 CK-MB (CK-2) 3.0 ng/mL (0.6-6.3) 05/15/17 12:10 B-Natriuretic Peptide 720 pg/mL (-100) H 05/19/17 08:06 Total Protein 6.7 g/dL (6.4-8.9) 05/15/17 12:10 Albumin 3.3 g/dL (3.2-5.2) 05/15/17 12:10 Globulin 3.4 g/dL (2-4) 05/15/17 12:10 Albumin/Globulin Ratio 1.0 (1-3) 05/15/17 12:10 Diagnostic Imaging: ECHO 05/15/17 (Enrique) EF 40%, mild , mod AI, severe MR, mild to mod TR. CXR's: CHF Assessment/Plan 86 yo female with RA, Parkinsons and valvular heart disease admitted with probable viral illness and has decompensated CHF and severe MR. The patient remains in CHF and very SOB despite diuretics and improvement in BNP. CHF: MR the largest culpret. Option of trial of Demedex or Bumex with metolazone prior for more aggressive diuresis. Agree with metoprolol. Mitral Clip option could make the most impact on improving hemodynamics. Will discuss tank terminal gauger options with sons on their arrival.
[2017-05-20 09:14] LABS: EGFR Non-African American 59.2 (>60)
[2017-05-20] MEDS: Azithromycin IV(*) 500 MG in NS 0.9% 250 ML* 250 ML IVPB SCH (12:20)
[2017-05-20] MEDS: cefTRIAXone 1000 MG SYRINGE IVPB Q24H (in NaCl) IVPB SCH ×2 (14:01)
--- NOTE | 2017-05-20 18:36 | PN ---
Subjective Date of Service: 05/20/17 Interval History: Patient seen and examined earlier today. Reports intermittent episodes of SOB, but denies chest pain, palpitations, weakness or syncope. Denies abdominal pain , nausea or vomiting. Both her sons are expected to visit her later today to discuss her current health status. She has no new complaints. Family History: Unchanged from Admission Social History: Unchanged from Admission Past Medical History: Unchanged from Admission Objective Active Medications: Acetaminophen (Tylenol Tab*) 650 mg PO Q6H PRN PRN Reason: PAIN Last Admin: 05/20/17 15:01 Dose: 650 mg Amlodipine Besylate (Norvasc Tab*) 2.5 mg PO DAILY [facility] Last Admin: 05/20/17 08:54 Dose: 2.5 mg Aspirin (Aspirin Ec Tab*) 81 mg PO DAILY [facility] Last Admin: 05/20/17 08:55 Dose: 81 mg Benzonatate (Tessalon Cap*) 100 mg PO BID PRN PRN Reason: COUGH Carbidopa/Levodopa (Sinemet Cr 50/200(*)) 1 tab.cr PO TID [facility] Last Admin: 05/20/17 14:39 Dose: 1 tab.cr Folic Acid (Folvite Tab*) 1 mg PO DAILY [facility] Last Admin: 05/20/17 08:54 Dose: 1 mg Furosemide (Lasix Iv*) 40 mg IV Q12H [facility] Last Admin: 05/20/17 08:56 Dose: 40 mg Guaifenesin (Robitussin*) 5 ml PO Q6H PRN PRN Reason: COUGH Heparin Sodium (Porcine) (Heparin Vial(*)) 5,000 units SUBCUT Q8HR [facility] Last Admin: 05/20/17 14:39 Dose: 5,000 units Azithromycin 500 mg/ Sodium (Chloride) 250 mls @ 250 mls/hr IVPB Q24H [facility] Last Admin: 05/20/17 12:20 Dose: 250 mls/hr Ceftriaxone Sodium 1,000 mg/ (Sodium Chloride) 10 mls @ 40 mls/hr IVPB Q24H [facility] Last Admin: 05/20/17 14:01 Dose: 40 mls/hr Levothyroxine Sodium (Synthroid Tab*) 50 mcg PO DAILY@0600 [facility] Last Admin: 05/20/17 06:36 Dose: 50 mcg Lidocaine (Lidoderm 5% Patch*) 1 patch TRANSDERM DAILY PRN PRN Reason: PAIN Metoprolol Tartrate (Lopressor Tab*) 12.5 mg PO Q12HR [facility] Last Admin: 05/20/17 08:53 Dose: 12.5 mg Omeprazole (Prilosec Cap*) 20 mg PO DAILY [facility] Last Admin: 05/20/17 08:54 Dose: 20 mg Ondansetron HCl (Zofran Inj*) 4 mg IV Q6H PRN PRN Reason: NAUSEA Last Admin: 05/19/17 13:23 Dose: 4 mg Oxycodone/Acetaminophen (Percocet 5/325 Tab*) 0.5 tab PO Q8H PRN PRN Reason: PAIN Last Admin: 05/19/17 21:15 Dose: 0.5 tab Pharmacy Profile Note (Lidocaine Patch Remove*) 1 note PATCH OFF 2100 [facility] Last Admin: 05/19/17 21:17 Dose: 1 note Tramadol HCl (Ultram*) 50 mg PO Q6H PRN PRN Reason: PAIN Last Admin: 05/17/17 23:48 Dose: 50 mg Vital Signs - 8 hr 05/20/17 05/20/17 05/20/17 10:31 11:00 11:30 Temperature 100.9 F 100.8 F 100.6 F Pulse Rate 89 99 99 Respiratory 32 15 21 Rate Blood Pressure 107/68 100/65 110/65 (mmHg) O2 Sat by Pulse 97 96 94 Oximetry 05/20/17 05/20/17 05/20/17 12:00 12:58 13:00 Temperature 100.4 F 100.6 F Pulse Rate 94 92 Respiratory 19 34 32 Rate Blood Pressure 105/62 94/65 (mmHg) O2 Sat by Pulse 96 97 Oximetry 05/20/17 05/20/17 05/20/17 14:00 14:01 15:00 Temperature 100.6 F 100.6 F 100.8 F Pulse Rate 95 99 94 Respiratory 30 34 32 Rate Blood Pressure 116/74 109/72 (mmHg) O2 Sat by Pulse 99 98 100 Oximetry 05/20/17 15:16 Temperature Pulse Rate 90 Respiratory 27 Rate Blood Pressure (mmHg) O2 Sat by Pulse 99 Oximetry Oxygen Devices in Use Now: Nasal Cannula Appearance: Awake, alert and oriented X3. Sitting comfortablly on her bed, in NAD. Eyes: No Scleral Icterus, PERRLA Ears/Nose/Mouth/Throat: Mucous Membranes Moist Neck: NL Appearance and Movements; NL JVP, Trachea Midline Respiratory: Symmetrical Chest Expansion and Respiratory Effort, Clear to Auscultation, - - Decreased bibasilar breath sounds. Cardiovascular: - - Harsh systolic murmur noted, radiates to axilla Abdominal: NL Sounds; No Tenderness; No Distention Extremities: No Edema Skin: No Rash or Ulcers Neurological: Alert and Oriented x 3 Lines/Tubes/Other Access: Clean, Dry and Intact Castano, Clean, Dry and Intact Peripheral IV Nutrition: Taking PO's Result Diagrams: 05/18/17 08:34 05/20/17 08:48 Additional Lab and Data: . Microbiology and Other Data: . Assess/Plan/Problems-Billing Assessment: Ms. Tee is an 86 yo female with a PMH of parkinson's, hypertension, chronic systolic CHF, and RA on methotrexate who was admitted on 05/15/17 with weakness, falls and new afib (rate controlled) with suspected viral illness. - Patient Problems (1) Acute on chronic systolic (congestive) heart failure Current Visit: Yes Comment: - continue to have moderate shortness of breath, moist congested cough - Echo- new severe MR, Lvef 40 % - cardiology consulted- will increase lasix to 40 mg Q12 hours. Can medically optimize if patient improves may be a candidate for a mitral clip prodecure. Patient and her immediate family to consider this option. (2) Afib Current Visit: Yes Comment: - New onset afib noted at last ED visit on 05/10/17. - HR increased - suspect this is related to her shortness of breath and fever - May be contributing to weakness. - Echo - severe new MR, LVEF 40% - Not a candidate for anticoagulation due to history of GI bleeding while on anticoagulation in the past for PE. (3) Cough Current Visit: Yes Comment: - Patient reported new cough prior to admission. - ESR and CRP mildly elevated (does have RA), but afebrile. - Chest xray - worsening CHF, poss RLL consolidation- continues with low grade fever over night (4) DNR (do not resuscitate) Current Visit: Yes Comment: (5) DVT prophylaxis Current Visit: Yes Comment: - Heparin SQ. (6) Hypertension Current Visit: Yes Comment: - Continue amlodipine and metoprolol (newly started this admission), hold enalapril during acute illness. (7) Hypothyroidism Current Visit: Yes Comment: - Continue levothyroxine (8) Parkinson disease Current Visit: Yes Comment: - Continue sinemet. (9) Respiratory failure Current Visit: Yes Comment: Acute respiratory failure - Suspect this is related to her acute/ chronic CHF- chest xray worsen CHF and possible RLL consolidation yesterday- remains tachypneic, weak, frail - will continue ceftriaxone and azithromycin - will remain in the ICU for high flow o2 - does meet sepsis 2 criteria with fever of 101.1 and tachypnea suspect this is more than likely related to pneumonia - advance directives discussed with patient and son - patient wishes to be DNR/ DNI MOLST form updated to reflect wishes. (10) Rheumatoid arthritis Current Visit: Yes Comment: - Hold methotrexate with acute illness. (11) Weakness Current Visit: Yes Comment: - Acute generalized weakness suspect either secondary to viral illness or afib. - could be related to severe MR as well as tachypnea - possible RLL consolidation. - patients prognosis still poor considering health status Status and Disposition: Switch to inpatient. ICU . Dr. Woodson to discuss with family mitral clip options.
[2017-05-20] MEDS: Lidocaine Patch REMOVE* 1 NOTE MISC PATCH OFF SCH (21:58)
[2017-05-20] MEDS ORDERED: Ibuprofen TAB* 600 MG PO ONE (23:18)
--- NOTE | 2017-05-20 23:31 | PN ---
Progress Note - Progress Note Date of Service: 05/20/17 Note: Paged for fever of 103 despite tylenol given and tachypnea in the 40's. Patient with increase work of breathing and nasal flaring. Will bronson culture, broaden antibiotics for vanco and zoysn. D/C CTX and azithromycin. Will obtain CXR, flu swab and place patient back on vapotherm.
[2017-05-20] MEDS ORDERED: Zosyn per Pharmacy* NOTE FOLLOW UP SCH (23:45)
[2017-05-20 23:49] LABS: ABS Basophils 0 10^3/ul (0-0.2); ABS Eosinophils 0 10^3/ul (0-0.6); ABS Lymphocytes 0.3 10^3/ul (1.0-4.8); ABS Monocytes 0.3 10^3/ul (0-0.8); ABS Neutrophils 11.7 10^3/ul (1.5-7.7); ABS Nucleated RBC 0 10^3/ul; Eosinophil % 0 % (0-6); Hematocrit 46 % (35-47); Hemoglobin 15.3 g/dl (12.0-16.0); Lymphocyte % 2.8 % (25-47); Mean Corpuscular HGB Conc 33 g/dl (31-36); Mean Corpuscular Hemoglobin 34 pg (27-31); Mean Corpuscular Volume 102 fL (80-97); Mean Platelet Volume 8.8 um3 (7.4-10.4); Nucleated Red Blood Cells % 0; Platelet Count 201 10^3/ul (150-450); Red Blood Count 4.51 10^6/ul (4.0-5.4); Red Cell Distribution Width 15 % (10.5-15); White Blood Count 12.4 10^3/ul (3.5-10.8)
[2017-05-21] MEDS ORDERED: Vancomycin(*) 1,000 MG in NS 0.9% 250 ML* 250 ML IVPB ONE ×2
[2017-05-21] MEDS ORDERED: Piperacillin/Tazobac ADVAN(*) 3.375 GM in NS 0.9% 50 ML* 50 ML IVPB ONE ×2
[2017-05-21 00:03] LABS: EGFR Non-African American 49.6 (>60)
[2017-05-21 00:46] LABS: Urine Appearance Clear; Urine Blood 1+ (Negative); Urine Color Straw; Urine Ketones Negative (Negative); Urine Protein Negative (Negative); Urine Specific Gravity 1.006 (1.010-1.030); Urine Urobilinogen Negative (Negative)
[2017-05-21] MEDS ORDERED: Vancomycin per Pharmacy* NOTE FOLLOW UP PRN (01:25)
[2017-05-21] MEDS: Piperacillin/Tazobactam 13.5 GM IV 24 hour continuous infusion IVPB SCH ×2 (05:00)
[2017-05-21] MEDS: Levothyroxine TAB* 50 MCG TAB PO SCH (06:30)
[2017-05-21] MEDS: Heparin VIAL(*) 5000 UNITS/ML VIAL (FIVE THOUSAND) SUBCUT SCH ×3 (06:30→21:56)
--- NOTE | 2017-05-21 07:38 | RAD ---
HISTORY: Tachypnea COMPARISONS: May 18, 2017 VIEWS: 1: frontal portable view of the chest at 12:07 AM. The patient is obliqued to the right. FINDINGS: Evaluation is limited by positioning and technique. LINES AND TUBES: None. CARDIOMEDIASTINAL SILHOUETTE: The cardiomediastinal silhouette is stable accounting for obliquity and technique. PLEURA: There is blunting of the costophrenic angles bilaterally. LUNG PARENCHYMA: There is hyperinflation. There is confluent alveolar opacification of the lung bases bilaterally. ABDOMEN: The upper abdomen is clear. There is no subphrenic gas. BONES AND SOFT TISSUES: No bone or soft tissue abnormalities are noted. IMPRESSION: LIMITED STUDY. SMALL BILATERAL PLEURAL EFFUSIONS WITH BIBASILAR ATELECTASIS VERSUS CONSOLIDATION.
[2017-05-21] MEDS: amLODIPine TAB* 5 MG PO SCH (08:04)
[2017-05-21] MEDS: Aspirin EC TAB* 81 MG TAB.EC PO SCH (08:04)
[2017-05-21] MEDS: Omeprazole CAP* 20 MG PO SCH (08:04)
[2017-05-21] MEDS: traMADol TAB* 50 MG PO PRN (08:04)
[2017-05-21] MEDS: Folic Acid TAB* 1 MG PO SCH (08:04)
[2017-05-21] MEDS: Furosemide IV* 10 MG/ML VIAL (40 MG) IV SCH ×2 (08:05→21:56)
[2017-05-21] MEDS: Metoprolol Tartrate TAB* 25 MG PO SCH ×2 (08:05→21:55)
[2017-05-21] MEDS: Carbidopa/Levodop CR 50/200(*) TAB.CR PO SCH ×3 (08:11→21:57)
--- NOTE | 2017-05-21 09:10 | PN ---
Subjective Date of Service: 05/21/17 Interval History: Patient seen and examined at bedside. Events from last night noted. Patient denies chest pain or SOB. She notes back pain from laying on her bed. Her oxygen sats have been stable with 50% O2 via NC. Denies dyspnea or orthopnea. Fever had improved since last night. Her son "Jamil" is at bedside to discuss treatment options with track worker. Family History: Unchanged from Admission Social History: Unchanged from Admission Past Medical History: Unchanged from Admission Objective Active Medications: Acetaminophen (Tylenol Tab*) 650 mg PO Q6H PRN PRN Reason: PAIN Last Admin: 05/20/17 21:41 Dose: 650 mg Amlodipine Besylate (Norvasc Tab*) 2.5 mg PO DAILY [facility] Last Admin: 05/21/17 08:04 Dose: 2.5 mg Aspirin (Aspirin Ec Tab*) 81 mg PO DAILY [facility] Last Admin: 05/21/17 08:04 Dose: 81 mg Benzonatate (Tessalon Cap*) 100 mg PO BID PRN PRN Reason: COUGH Carbidopa/Levodopa (Sinemet Cr 50/200(*)) 1 tab.cr PO TID [facility] Last Admin: 05/21/17 08:11 Dose: 1 tab.cr Folic Acid (Folvite Tab*) 1 mg PO DAILY [facility] Last Admin: 05/21/17 08:04 Dose: 1 mg Furosemide (Lasix Iv*) 40 mg IV Q12H [facility] Last Admin: 05/21/17 08:05 Dose: 40 mg Guaifenesin (Robitussin*) 5 ml PO Q6H PRN PRN Reason: COUGH Heparin Sodium (Porcine) (Heparin Vial(*)) 5,000 units SUBCUT Q8HR [facility] Last Admin: 05/21/17 06:30 Dose: 5,000 units Piperacillin Sod/Tazobactam (Sod 13.5 gm/ Sodium Chloride) 500 mls @ 20.833 mls /hr IVPB Q24H [facility] Last Admin: 05/21/17 05:00 Dose: 20.833 mls/hr Vancomycin HCl 1,000 mg/ (Sodium Chloride) 250 mls @ 166.667 mls/hr IVPB Q24H [facility] Levothyroxine Sodium (Synthroid Tab*) 50 mcg PO DAILY@0600 [facility] Last Admin: 05/21/17 06:30 Dose: 50 mcg Lidocaine (Lidoderm 5% Patch*) 1 patch TRANSDERM DAILY PRN PRN Reason: PAIN Metoprolol Tartrate (Lopressor Tab*) 12.5 mg PO Q12HR [facility] Last Admin: 05/21/17 08:05 Dose: 12.5 mg Omeprazole (Prilosec Cap*) 20 mg PO DAILY [facility] Last Admin: 05/21/17 08:04 Dose: 20 mg Ondansetron HCl (Zofran Inj*) 4 mg IV Q6H PRN PRN Reason: NAUSEA Last Admin: 05/19/17 13:23 Dose: 4 mg Oxycodone/Acetaminophen (Percocet 5/325 Tab*) 0.5 tab PO Q8H PRN PRN Reason: PAIN Last Admin: 05/19/17 21:15 Dose: 0.5 tab Pharmacy Consult (Zosyn Per Pharmacy*) 1 note FOLLOW UP .ZOSYN PER PHARMACY [facility] Pharmacy Consult (Vancomycin Per Pharmacy*) 1 note FOLLOW UP . PRN PRN Reason: PER PROTOCOL Pharmacy Profile Note (Lidocaine Patch Remove*) 1 note PATCH OFF 2100 [facility] Last Admin: 05/20/17 21:58 Dose: Not Given Pharmacy Profile Note (Vancomycin Trough Check) 1 note FOLLOW UP .ENTER TIME ONE Stop: 05/23/17 20:31 Tramadol HCl (Ultram*) 50 mg PO Q6H PRN PRN Reason: PAIN Last Admin: 05/21/17 08:04 Dose: 50 mg Vital Signs - 8 hr 05/21/17 05/21/17 05/21/17 02:00 03:00 04:00 Temperature 101.1 F 100.6 F 99.9 F Pulse Rate 87 85 86 Respiratory 27 15 32 Rate Blood Pressure 95/62 117/69 109/66 (mmHg) O2 Sat by Pulse 93 94 94 Oximetry 05/21/17 05/21/17 05/21/17 05:00 05:01 06:00 Temperature 99.5 F 99.5 F 99.5 F Pulse Rate Respiratory 29 19 25 Rate Blood Pressure 116/67 125/75 (mmHg) O2 Sat by Pulse Oximetry 05/21/17 05/21/17 05/21/17 07:00 07:42 08:00 Temperature 99.3 F 99.5 F Pulse Rate 85 94 Respiratory 13 22 37 Rate Blood Pressure 106/68 131/77 (mmHg) O2 Sat by Pulse 97 97 Oximetry 05/21/17 08:52 Temperature Pulse Rate Respiratory Rate Blood Pressure (mmHg) O2 Sat by Pulse 94 Oximetry Oxygen Devices in Use Now: High Flow Heated Nasal Cannula Appearance: Awake, drowsy andconfused at times. Sitting on her bed, appears comfortable. Responds to questions. Eyes: No Scleral Icterus Ears/Nose/Mouth/Throat: Mucous Membranes Moist Neck: NL Appearance and Movements; NL JVP, Trachea Midline Respiratory: Symmetrical Chest Expansion and Respiratory Effort - No labored breathing. No chest wall retraction. Breath sounds diminished bilaterally, more at the bases. Cardiovascular: NL Sounds; No Murmurs; No JVD - Harsh systolic murmur, unchanged , radiating to left axilla. Abdominal: NL Sounds; No Tenderness; No Distention Extremities: No Edema Lines/Tubes/Other Access: Clean, Dry and Intact Castano, Clean, Dry and Intact Peripheral IV Result Diagrams: 05/20/17 23:35 05/20/17 23:35 Additional Lab and Data: .Influenza A&B negative Microbiology and Other Data: . Diagnostic Imaging: CXR reviewed from last night. Bilateral basilar atelectasis vs consolidation. Small pleural effusion. Assess/Plan/Problems-Billing Assessment: Ms. Tee is an 86 yo female with a PMH of parkinson's, hypertension, chronic systolic CHF, and RA on methotrexate who was admitted on 05/15/17 with weakness, falls and new afib (rate controlled) with suspected viral illness. She experienced respiratory distress last night. - Patient Problems (1) Acute on chronic systolic (congestive) heart failure Current Visit: Yes Comment: - continue to have moderate shortness of breath, moist congested cough - Echo- new severe MR, Lvef 40 % - cardiology consulted- will increase lasix to 40 mg Q12 hours. Can medically optimize if patient improves may be a candidate for a mitral clip prodecure. Patient and her immediate family to consider this option. Her son is back in town and await cardiology input to make a decision in that regard. (2) Afib Current Visit: Yes Comment: - New onset afib noted at last ED visit on 05/10/17. - HR increased - suspect this is related to her shortness of breath and fever - May be contributing to weakness. - Echo - severe new MR, LVEF 40% - Not a candidate for anticoagulation due to history of GI bleeding while on anticoagulation in the past for PE. (3) Cough Current Visit: Yes Comment: - Patient reported new cough prior to admission. - ESR and CRP mildly elevated (does have RA), but afebrile. - Chest xray last night with bilateral basilar atelectasis vs consolidation. (4) DNR (do not resuscitate) Current Visit: Yes Comment: (5) DVT prophylaxis Current Visit: Yes Comment: - Heparin SQ. (6) Hypertension Current Visit: Yes Comment: - Continue amlodipine and metoprolol (newly started this admission), hold enalapril during acute illness. (7) Hypothyroidism Current Visit: Yes Comment: - Continue levothyroxine (8) Parkinson disease Current Visit: Yes Comment: - Continue sinemet. (9) Respiratory failure Current Visit: Yes Comment: Acute respiratory failure - Suspect this is related to her acute/ chronic CHF- chest xray worsen CHF and possible RLL consolidation yesterday- remains tachypneic, weak, frail - Abx changed to Vanco and Zoyn for broader coverage. - will remain in the ICU for high flow o2 - does meet sepsis 2 criteria with fever of 101.1 and tachypnea suspect this is more than likely related to pneumonia - advance directives discussed with patient and son - patient wishes to be DNR/ DNI MOLST form updated to reflect wishes. (10) Rheumatoid arthritis Current Visit: Yes Comment: - Hold methotrexate with acute illness. (11) Weakness Current Visit: Yes Comment: - Acute generalized weakness suspect either secondary to viral illness or afib. - could be related to severe MR as well as tachypnea - possible RLL consolidation. - patients prognosis still poor considering health status Status and Disposition: Switch to inpatient. ICU . Prognosis is overall poor. Mitral valve clipping is an option her family would like to discuss. Will consider palliative care, son aware of this. Based on their decision, Hospice care could be consulted.
[2017-05-21] MEDS: oxyCODONE/Acetamin 5/325 MG* TAB PO PRN (10:13)
--- NOTE | 2017-05-21 11:42 | CONS ---
CC: Dr. Nasrin Bowman * CARDIOLOGY CONSULTATION: DATE OF CONSULT: 05/19/17 INDICATION FOR CONSULTATION: Congestive heart failure, atrial fibrillation. HISTORY OF PRESENT ILLNESS: The patient is an 86-year-old female with a history of coronary artery disease, history of chronic atrial fibrillation who came to the emergency room because of fatigue, weakness, and inability to take care of herself at home. The patient is recently becoming more weak. I interviewed the patient with her son in the intensive care unit. The son states that the patient has been having more difficulty taking care of herself at home. She still lives at home alone. She had been to the emergency room a couple of days prior to admission with left-sided neck pain and evaluation at that time was unremarkable. The patient was at home. She had a fall, which had some damage to her sacral area and her and her hand and she became unable to take care of herself at home. She was also complaining of increased shortness of breath. On arrival to the emergency room, the patient had some degree of lactic acidosis. Her BNP was elevated at 1150. The patient had labored breathing and was admitted to the intensive care unit. She was treated with some degree of fluid resuscitation. The patient did have an echocardiogram in the intensive care unit, which showed significant reduction in her LV function. Her baseline LV function is 45 to 50% . This recent echocardiogram showed an ejection fraction of 30%. It also showed severe mitral regurgitation where previously she had mild mitral regurgitation. On speaking with the patient, she has no obvious complaints. She has no chest pain. She has no orthopnea. She just has profound weakness. However, she is on a Vapotherm and her respiratory rate is 25. PAST MEDICAL HISTORY: Significant for: 1. Coronary artery disease. History of cardiac catheterization in 2011. At that time, she had a stent placed to her mid right coronary artery. She had other mild to moderate disease in her LAD and left circumflex artery. 2. The patient has chronic atrial fibrillation. She had been on anticoagulation, but has not been able to take that because of history of a GI bleed. 3. History of pulmonary embolism. 4. CVA. 5. Parkinson's disease. 6. Rheumatoid arthritis. 7. Osteoporosis. 8. Thoracic aortic aneurysm at 4.5 cm. OUTPATIENT MEDICATIONS: 1. Sertraline 25 mg a day. 2. Amlodipine 2.5 mg a day. 3. Carbidopa/levodopa as directed. 4. Prilosec 20 mg a day. 5. Simvastatin 20 mg a day. 6. Enalapril 5 mg b.i.d. 7. Ambien as needed. 8. Aspirin 81 mg a day. 9. Methotrexate 7.5 mg weekly. 10. Folic acid. ALLERGIES: No known drug allergies. FAMILY HISTORY: Noncontributory. SOCIAL HISTORY: She lives alone. She has 3 children in the area who are involved in her care. She denies tobacco or alcohol use. She does not get any regular exercise. REVIEW OF SYSTEMS: Negative for fever or chills. Negative for changes in bowel or bladder habits. Negative for change in her weight. Other 12-point review is unremarkable. PHYSICAL EXAM: Vital Signs: Height is 5 feet 5 inches, weight 125 pounds. Temperature 99.5, blood pressure 131/71, heart rate is 94 and irregular, respiratory rate is 31, oxygen saturation 97% on Vapotherm. Sclerae anicteric. Oropharynx is pink without erythema. Carotids are 2+ without bruits. JVD is normal. Thyroid is normal. Cardiac Exam: Tachycardic. S1 and S2 with a 2/6 systolic ejection murmur heard best at the apex. PMI is normal. Lungs have mild rhonchi throughout. There is no rales on exam. There is no dullness to percussion. Abdomen is soft, nontender, and nondistended. Normoactive bowel sounds. Extremities show minimal edema. She has 2+ pulses throughout. The patient is awake, alert, and oriented. The patient is unable to get out of bed. DIAGNOSTIC STUDIES/LABORATORY DATA: Chemistries within normal limits. BUN 27, creatinine 1.05. Troponins are negative x2. CBC: She has a white count of 12.4, hemoglobin and hematocrit are normal, platelet count 201. EKG shows atrial fibrillation with nonspecific T-wave abnormalities. Her echocardiogram is as described above. IMPRESSION: This is an 86-year-old female with a history of coronary artery disease who was admitted to the hospital with failure to thrive at her home environment. The patient is getting more progressively weak and has less ability to take care of herself. She clearly has congestive heart failure. Her echocardiogram shows significant reduction in her left ventricular function and significant worsening of her mitral regurgitation. I had a long discussion with the patient and her son about potential goals and treatment therapies. The patient will be continued on maximal medical therapy; however, given her LV dysfunction and severe mitral regurgitation, it is unlikely to have any significant effect or in her overall congestive heart failure. I did talk to the patient and son about more invasive procedures such as a MitraClip. The patient is not a candidate for mitral valve replacement or repair. At this point, they are going to consider their options. We will continue on maximum medical therapy. We will evaluate the patient for penitentiary placement and make further recommendations at that time. This was discussed with Thais Anderson, nurse practitioner. [id number]/[facility] #: [id number] KASSIDY
--- NOTE | 2017-05-21 13:02 | PN ---
Progress Note - Progress Note Date of Service: 05/21/17 Note: I had a long conversation with Patient's son, Lobo, who has health care proxy. We discussed her current health status, poor hemodynamic stability and the likelihood of end of life in the next day or two. Her urine output had declined past few hours. I will start gentle hydration, in fear of exacerbating her CHF. She continue to spike fever, will keep her covered with Ibuprofen since she responded to it last night. I also suggested palliative care consult, and Nura is in agreement.
[2017-05-21] MEDS: NS 0.9% 1000 ML* 1,000 ML IV SCH (13:04)
[2017-05-21] MEDS: Ibuprofen TAB* 600 MG PO PRN ×2 (13:27→21:55)
[2017-05-21] MEDS ORDERED: Vancomycin(*) 1,000 MG in NS 0.9% 250 ML* 250 ML IVPB SCH (21:00)
[2017-05-21] MEDS: Lidocaine Patch REMOVE* 1 NOTE MISC PATCH OFF SCH (21:58)
[2017-05-22] MEDS: NS 0.9% 1000 ML* 1,000 ML IV SCH (04:50)
[2017-05-22] MEDS: Piperacillin/Tazobactam 13.5 GM IV 24 hour continuous infusion IVPB SCH ×2 (04:54)
[2017-05-22 05:27] LABS: ABS Basophils 0 10^3/ul (0-0.2); ABS Eosinophils 0.1 10^3/ul (0-0.6); ABS Monocytes 0.5 10^3/ul (0-0.8); ABS Neutrophils 6.7 10^3/ul (1.5-7.7); ABS Nucleated RBC 0 10^3/ul; Eosinophil % 1.5 % (0-6); Hematocrit 43 % (35-47); Hemoglobin 14.4 g/dl (12.0-16.0); Lymphocyte % 11.6 % (25-47); Mean Corpuscular HGB Conc 34 g/dl (31-36); Mean Corpuscular Hemoglobin 35 pg (27-31); Mean Corpuscular Volume 103 fL (80-97); Mean Platelet Volume 9.4 um3 (7.4-10.4); Nucleated Red Blood Cells % 0.2; Platelet Count 192 10^3/ul (150-450); Red Blood Count 4.18 10^6/ul (4.0-5.4); Red Cell Distribution Width 15 % (10.5-15); White Blood Count 8.3 10^3/ul (3.5-10.8)
[2017-05-22 05:37] LABS: EGFR Non-African American 44.2 (>60)
[2017-05-22] MEDS: Acetaminophen TAB* 325 MG PO PRN (05:52)
[2017-05-22] MEDS: Levothyroxine TAB* 50 MCG TAB PO SCH (05:52)
[2017-05-22] MEDS: Heparin VIAL(*) 5000 UNITS/ML VIAL (FIVE THOUSAND) SUBCUT SCH ×3 (05:52→21:22)
[2017-05-22] MEDS: Aspirin EC TAB* 81 MG TAB.EC PO SCH (08:25)
[2017-05-22] MEDS: amLODIPine TAB* 5 MG PO SCH (08:25)
[2017-05-22] MEDS: Metoprolol Tartrate TAB* 25 MG PO SCH ×2 (08:26→21:21)
[2017-05-22] MEDS: Omeprazole CAP* 20 MG PO SCH (08:26)
[2017-05-22] MEDS: Folic Acid TAB* 1 MG PO SCH (08:26)
[2017-05-22] MEDS: Furosemide IV* 10 MG/ML VIAL (40 MG) IV SCH ×2 (08:26→21:20)
[2017-05-22] MEDS: Carbidopa/Levodop CR 50/200(*) TAB.CR PO SCH ×3 (08:26→21:20)
[2017-05-22] MEDS: oxyCODONE/Acetamin 5/325 MG* TAB PO PRN (15:30)
[2017-05-22] MEDS ORDERED: oxyCODONE/Acetamin 5/325 MG* TAB PO PRN (16:53)
[2017-05-22] MEDS ORDERED: Methotrexate TAB* 2.5 MG PO SCH (17:00)
--- NOTE | 2017-05-22 17:25 | CONSULT ---
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 She also has a keke of RA on chronic MTX and Parkinson's disease on Sinemet. She experienced left neck pain earlier in the week of admission, and then presented to the ER with generalized weakness, and BNP 434, lactic acidosis. ECHO revealed new decline in her EF to 30% from her previous baseline of 45-50%, and a new finding of severe mitral regurgitation. The patient is not a candidate for juliane replacement and has refused Mitraclip, which is a temporary fix in any event. Her hospitalist reports that she was looking very ill as recently as yesterday, but seems to have perked up today. She is responding well to diuresis with a 5 lb. weight loss, and her renal function remains adequate. She has O2 sats in the 90's to 100 on 3 L O2. She has been living independently but now realizes she will need more help and is accepting of placement in a SNF. She is complaining of pain in her back due to her arthritis, but denies chest pain at present. Lab Values: Abnormal Lab Results 05/22/17 05/22/17 05:12 05:12 WBC 8.3 RBC 4.18 Hgb 14.4 Hct 43 MCV 103 H MCH 35 H MCHC 34 RDW 15 Plt Count 192 MPV 9.4 Neut % (Auto) 81.2 Lymph % (Auto) 11.6 L Mchenry % (Auto) 5.5 Eos % (Auto) 1.5 Baso % (Auto) 0.2 Absolute Neuts (auto) 6.7 Absolute Lymphs (auto) 1.0 Absolute Monos (auto) 0.5 Absolute Eos (auto) 0.1 Absolute Basos (auto) 0 Absolute Nucleated RBC 0 Nucleated RBC % 0.2 Sodium 141 Potassium 3.6 Chloride 104 Carbon Dioxide 27 Anion Gap 10 BUN 26 H Creatinine 1.16 H Est GFR ( Amer) 56.8 Est GFR (Non-Af Amer) 44.2 BUN/Creatinine Ratio 22.4 H Glucose 96 Calcium 8.0 L Laboratory Last Values WBC 8.3 10^3/ul (3.5-10.8) 05/22/17 05:12 RBC 4.18 10^6/ul (4.0-5.4) 05/22/17 05:12 Hgb 14.4 g/dl (12.0-16.0) 05/22/17 05:12 Hct 43 % (35-47) 05/22/17 05:12 MCV 103 fL (80-97) H 05/22/17 05:12 MCH 35 pg (27-31) H 05/22/17 05:12 MCHC 34 g/dl (31-36) 05/22/17 05:12 RDW 15 % (10.5-15) 05/22/17 05:12 Plt Count 192 10^3/ul (150-450) 05/22/17 05:12 MPV 9.4 um3 (7.4-10.4) 05/22/17 05:12 Neut % (Auto) 81.2 % (38-83) 05/22/17 05:12 Lymph % (Auto) 11.6 % (25-47) L 05/22/17 05:12 Mchenry % (Auto) 5.5 % (0-7) 05/22/17 05:12 Eos % (Auto) 1.5 % (0-6) 05/22/17 05:12 Baso % (Auto) 0.2 % (0-2) 05/22/17 05:12 Absolute Neuts (auto) 6.7 10^3/ul (1.5-7.7) 05/22/17 05:12 Absolute Lymphs (auto) 1.0 10^3/ul (1.0-4.8) 05/22/17 05:12 Absolute Monos (auto) 0.5 10^3/ul (0-0.8) 05/22/17 05:12 Absolute Eos (auto) 0.1 10^3/ul (0-0.6) 05/22/17 05:12 Absolute Basos (auto) 0 10^3/ul (0-0.2) 05/22/17 05:12 Absolute Nucleated RBC 0 10^3/ul 05/22/17 05:12 Nucleated RBC % 0.2 05/22/17 05:12 ESR 50 mm/Hr (0-40) H 05/15/17 12:10 INR (Anticoag Therapy) 0.99 (0.77-1.02) 05/15/17 12:10 APTT 27.1 seconds (26.0-36.3) 05/15/17 12:10 Sodium 141 mmol/L (139-145) 05/22/17 05:12 Potassium 3.6 mmol/L (3.5-5.0) 05/22/17 05:12 Chloride 104 mmol/L (101-111) 05/22/17 05:12 Carbon Dioxide 27 mmol/L (22-32) 05/22/17 05:12 Anion Gap 10 mmol/L (2-11) 05/22/17 05:12 BUN 26 mg/dL (6-24) H 05/22/17 05:12 Creatinine 1.16 mg/dL (0.51-0.95) H 05/22/17 05:12 Est GFR ( Amer) 56.8 (>60) 05/22/17 05:12 Est GFR (Non-Af Amer) 44.2 (>60) 05/22/17 05:12 BUN/Creatinine Ratio 22.4 (8-20) H 05/22/17 05:12 Glucose 96 mg/dL (70-100) 05/22/17 05:12 Lactic Acid 1.7 mmol/L (0.5-2.0) 05/20/17 23:45 Calcium 8.0 mg/dL (8.6-10.3) L 05/22/17 05:12 Total Bilirubin 0.90 mg/dL (0.2-1.0) 05/15/17 12:10 AST 33 U/L (13-39) 05/15/17 12:10 ALT 7 U/L (7-52) 05/15/17 12:10 Alkaline Phosphatase 82 U/L (34-104) 05/15/17 12:10 CK-MB (CK-2) 3.0 ng/mL (0.6-6.3) 05/15/17 12:10 Troponin I 0.03 ng/mL (<0.04) 05/15/17 14:45 C-Reactive Protein 90.21 mg/L (< 5.00) H 05/15/17 12:10 B-Natriuretic Peptide 434 pg/mL (-100) H 05/20/17 08:48 Total Protein 6.7 g/dL (6.4-8.9) 05/15/17 12:10 Albumin 3.3 g/dL (3.2-5.2) 05/15/17 12:10 Globulin 3.4 g/dL (2-4) 05/15/17 12:10 Albumin/Globulin Ratio 1.0 (1-3) 05/15/17 12:10 Procalcitonin 0.2 ng/mL (<0.6) 05/20/17 08:48 Urine Color Straw 05/20/17 23:58 Urine Appearance Clear 05/20/17 23:58 Urine pH 5.0 (5-9) 05/20/17 23:58 Ur Specific Riner 1.006 (1.010-1.030) L 05/20/17 23:58 Urine Protein Negative (Negative) 05/20/17 23:58 Urine Ketones Negative (Negative) 05/20/17 23:58 Urine Blood 1+ (Negative) A 05/20/17 23:58 Urine Nitrate Negative (Negative) 05/20/17 23:58 Urine Bilirubin Negative (Negative) 05/20/17 23:58 Urine Urobilinogen Negative (Negative) 05/20/17 23:58 Ur Leukocyte Esterase Negative (Negative) 05/20/17 23:58 Urine WBC (Auto) Trace(0-5/hpf) (Absent) 05/20/17 23:58 Urine RBC (Auto) Trace(0-2/hpf) (Absent) 05/20/17 23:58 Ur Squamous Epith Cells Present (Absent) A 05/15/17 12:10 Urine Bacteria Absent (Absent) 05/20/17 23:58 Urine Glucose Negative (Negative) 05/20/17 23:58 Urine Ascorbic Acid * (Negative) A 05/15/17 12:10 Influenza A (Rapid) Negative (Negative) 05/20/17 23:44 Influenza B (Rapid) Negative (Negative) 05/20/17 23:44 - Objective Active Medications: Acetaminophen (Tylenol Tab*) 650 mg PO Q6H PRN PRN Reason: PAIN Last Admin: 05/22/17 05:52 Dose: 650 mg Amlodipine Besylate (Norvasc Tab*) 2.5 mg PO DAILY [facility] Last Admin: 05/22/17 08:25 Dose: 2.5 mg Aspirin (Aspirin Ec Tab*) 81 mg PO DAILY [facility] Last Admin: 05/22/17 08:25 Dose: 81 mg Benzonatate (Tessalon Cap*) 100 mg PO BID PRN PRN Reason: COUGH Carbidopa/Levodopa (Sinemet Cr 50/200(*)) 1 tab.cr PO TID [facility] Last Admin: 05/22/17 13:14 Dose: 1 tab.cr Folic Acid (Folvite Tab*) 1 mg PO DAILY [facility] Last Admin: 05/22/17 08:26 Dose: 1 mg Furosemide (Lasix Iv*) 40 mg IV Q12H [facility] Last Admin: 05/22/17 08:26 Dose: 40 mg Guaifenesin (Robitussin*) 5 ml PO Q6H PRN PRN Reason: COUGH Heparin Sodium (Porcine) (Heparin Vial(*)) 5,000 units SUBCUT Q8HR [facility] Last Admin: 05/22/17 13:14 Dose: 5,000 units Piperacillin Sod/Tazobactam (Sod 13.5 gm/ Sodium Chloride) 500 mls @ 20.833 mls /hr IVPB Q24H [facility] Last Admin: 05/22/17 04:54 Dose: 20.833 mls/hr Sodium Chloride (Ns 0.9% 1000 Ml*) 1,000 mls @ 75 mls/hr IV PER RATE [facility] Last Admin: 05/22/17 04:50 Dose: 75 mls/hr Ibuprofen (Motrin Tab*) 600 mg PO Q8H PRN PRN Reason: PAIN Last Admin: 05/21/17 21:55 Dose: 600 mg Levothyroxine Sodium (Synthroid Tab*) 50 mcg PO DAILY@0600 [facility] Last Admin: 05/22/17 05:52 Dose: 50 mcg Lidocaine (Lidoderm 5% Patch*) 1 patch TRANSDERM DAILY PRN PRN Reason: PAIN Methotrexate (Methotrexate Tab*) 7.5 mg PO FR@1700 [facility] Metoprolol Tartrate (Lopressor Tab*) 12.5 mg PO Q12HR [facility] Last Admin: 05/22/17 08:26 Dose: 12.5 mg Omeprazole (Prilosec Cap*) 20 mg PO DAILY [facility] Last Admin: 05/22/17 08:26 Dose: 20 mg Ondansetron HCl (Zofran Inj*) 4 mg IV Q6H PRN PRN Reason: NAUSEA Last Admin: 05/19/17 13:23 Dose: 4 mg Oxycodone/Acetaminophen (Percocet 5/325 Tab*) 1 tab PO Q6H PRN PRN Reason: PAIN Pharmacy Consult (Zosyn Per Pharmacy*) 1 note FOLLOW UP .ZOSYN PER PHARMACY [facility] Pharmacy Profile Note (Lidocaine Patch Remove*) 1 note PATCH OFF 2099 [facility] Last Admin: 05/21/17 21:58 Dose: Not Given Tramadol HCl (Ultram*) 50 mg PO Q6H PRN PRN Reason: PAIN Last Admin: 05/21/17 08:04 Dose: 50 mg Vital Signs: Vital Signs: Temp Pulse Resp BP Pulse Ox 98.1 F 84 19 117/63 100 05/22/17 14:52 05/22/17 14:52 05/22/17 15:30 05/22/17 14:52 05/22/17 14:52 Patient Weight: Weight 123 lb 7.342 oz Intake and Output: Intake & Output 05/20/17 05/21/17 05/22/17 05/23/17 06:59 06:59 06:59 06:59 Intake Total 992 729 4232 901 Output Total 2800 1525 1250 Balance -1960 -919 787 901 Weight 129 lb 13.636 oz 125 lb 3.561 oz 123 lb 7.342 oz Intake: IV Fluids 15 446 1141 701 ABX - AZITHROMYCIN 15 ABX - PIPERACILLIN 24 ABX - VANCOMYCIN 260 NS (0.9%) 162 1141 701 IVPB 250 10 626 ABX - AZITHROMYCIN 250 ABX - PIPERACILLIN 346 ABX - VANCOMYCIN 280 NS (0.9%) 10 Oral 575 150 270 200 Output: Castano 2800 1525 1250 Other: Estimated Void Large # Bowel Movements 0 # Voids 1 ADLs: Meal Record Start: 05/15/17 16: 49 Freq: DAILY@0900,1400,1800 Status: Active Protocol: Document 05/15/17 18:00 [id number] (Rec: 05/15/17 22:29 [id number] MED-C11) Document 05/16/17 09:00 [id number] (Rec: 05/16/17 10:16 [id number] MED-C14) Document 05/16/17 13:52 [id number] (Rec: 05/16/17 13:53 [id number] MED-C09) Document 05/16/17 18:00 [id number] (Rec: 05/16/17 18:41 [id number] MED-C11) Document 05/17/17 09:00 [id number] (Rec: 05/17/17 10:26 [id number] MED-C09) Document 05/17/17 13:34 [id number] (Rec: 05/17/17 13:36 [id number] MED-C09) Document 05/18/17 09:00 [id number] (Rec: 05/18/17 10:21 [id number] MED-C11) Document 05/18/17 14:00 [id number] (Rec: 05/18/17 15:10 [id number] ICU-C06) Document 05/18/17 18:00 [id number] (Rec: 05/18/17 18:38 [id number] ICU-C06) Document 05/19/17 09:00 [id number] (Rec: 05/19/17 09:53 [id number] ICU-C11) Document 05/19/17 14:00 [id number] (Rec: 05/19/17 14:16 [id number] ICU-C06) Document 05/19/17 19:00 [id number] (Rec: 05/19/17 22:07 [id number] ICU-C06) Document 05/20/17 09:57 [id number] (Rec: 05/20/17 09:57 [id number] ICU-C06) Document 05/20/17 10:04 [id number] (Rec: 05/20/17 10:04 [id number] ICU-C11) Document 05/20/17 14:00 ADY2047 (Rec: 05/20/17 14:46 [id number] ICU-C11) Document 05/21/17 09:00 [id number] (Rec: 05/21/17 10:40 [id number] ICU-C06) Document 05/21/17 14:00 [id number] (Rec: 05/21/17 14:19 QHI2237 ICU-M16) Document 05/22/17 09:00 [id number] (Rec: 05/22/17 09:50 [id number] ICU-C20) ADLs: Meal Record Start: 05/18/17 12: 34 Freq: Status: Inactive Protocol: Created 05/18/17 12:34 [id number] (Rec: 05/18/17 12:34 [id number] ICU-C06) ADLs: Meal Record Start: 05/22/17 14: 57 Freq: DAILY@0900,1400,1800 Status: Inactive Protocol: Created 05/22/17 14:57 [id number] (Rec: 05/22/17 14:57 [id number] MED-C14) Intake and Output Start: 05/15/17 16: 49 Freq: DAILY@0600,1400,2200 Status: Active Protocol: Document 05/15/17 22:00 [id number] (Rec: 05/15/17 22:29 IIS4034 MED-C11) Document 05/16/17 04:15 WUT1732 (Rec: 05/16/17 04:16 JEX0712 MED-C09) Document 05/16/17 13:52 [id number] (Rec: 05/16/17 13:53 [id number] MED-C09) Document 05/16/17 22:00 AWZ9417 (Rec: 05/16/17 23:02 [id number] MED-C11) Document 05/17/17 06:00 QHI6852 (Rec: 05/17/17 06:50 [id number] MED-C14) Document 05/17/17 13:34 QPY0003 (Rec: 05/17/17 13:36 FWA5500 MED-C09) Document 05/17/17 22:00 OZE3738 (Rec: 05/17/17 23:02 [id number] MEDL-C01) Document 05/18/17 06:00 FIY9503 (Rec: 05/18/17 06:16 [id number] MED-C09) Document 05/18/17 14:00 RCS0762 (Rec: 05/18/17 15:11 [id number] ICU-C06) Document 05/19/17 06:00 [id number] (Rec: 05/19/17 07:27 [id number] ICU-C06) Document 05/19/17 10:41 [id number] (Rec: 05/19/17 10:41 [id number] ICU-C06) Document 05/19/17 14:00 EVR4751 (Rec: 05/19/17 15:10 [id number] ICU-M16) Document 05/19/17 22:00 [id number] (Rec: 05/19/17 22:22 [id number] ICU-C06) Document 05/20/17 06:00 FXS5482 (Rec: 05/20/17 07:17 [id number] ICU-C06) Document 05/20/17 14:00 QZO2252 (Rec: 05/20/17 14:46 [id number] ICU-C11) Document 05/20/17 21:51 [id number] (Rec: 05/20/17 21:51 [id number] ICU-C14) Document 05/20/17 22:00 [id number] (Rec: 05/21/17 00:51 [id number] ICU-C06) Document 05/21/17 06:00 [id number] (Rec: 05/21/17 06:43 [id number] ICU-C06) Document 05/21/17 13:25 [id number] (Rec: 05/21/17 13:26 [id number] ICU-M16) Document 05/21/17 21:44 [id number] (Rec: 05/21/17 21:44 SBV0349 ICU-C25) Document 05/22/17 05:17 [id number] (Rec: 05/22/17 05:17 [id number] ICU-C10) Intake and Output Start: 05/18/17 12: 34 Freq: Status: Inactive Protocol: Created 05/18/17 12:34 [id number] (Rec: 05/18/17 12:34 [id number] ICU-C06) Intake and Output Start: 05/22/17 14: 57 Freq: DAILY@0600,1400,2200 Status: Inactive Protocol: Created 05/22/17 14:57 [id number] (Rec: 05/22/17 14:57 [id number] MED-C14) General Impression: Pleasant, forgetful woman sitting upright in bed comfortably Head: Symmetrical Eyes: No Scleral Icterus Ears/Nose/Mouth/Throat: Mucous Membranes Moist Neck: NL Appearance and Movements; NL JVP, Trachea Midline Cardiovascular: RRR - iv/vi systolic murmur at base radiating to axilla Respiratory: Symmetrical Chest Expansion and Respiratory Effort, - - bibasilar coarse rales Abdominal: NL Sounds; No Tenderness; No Distention Extremities: No Edema Neurological: Alert and Oriented x 3 - Assessment Assessment: I met with the patient and her two sons and one grandson. All were in agreement that the patient is not able to return home, even with home care. She is quite alert and well compensated today, and she may continue to improve, so I do not think she is a candidate for the [facility] residence, but she is certainly appropriate for hospice services after her discharge, as she has end-stage CHF with severe mitral regurgitation, and is not likely to survive more than a few months at most. She and her family are planning discharge to a SNF, and she prefers [facility] if available, and referral to hospice should be made when she is discharged. Other then reinstating her MTX for her RA, she has no other palliative needs at this time. - Plan Consult Plan (MU): Hospice - Time On Unit Date of Evaluation: 05/22/17 Hospice Consult Time in: 15:30 Hospice Consult Time Out: 16:30 Hospice Consult Time Total: 60 > 50% of Time Spend In Counseling or Coordinating Care: Yes
--- NOTE | 2017-05-22 17:39 | PN ---
Subjective Date of Service: 05/22/17 Interval History: Patient was seen and examined earlier today while still in her ICU bed. Reports feeling metter today, only some arthritic aches and pains, would like to resume her Methotrexate which she takes every Thursday. Her son Jamil presents at bedside. Awaiting palliative care consult to discuss d/c options. Denies chest pain, dyspnea or orthopnea. Slept better last night per patient. Family History: Unchanged from Admission Social History: Unchanged from Admission Past Medical History: Unchanged from Admission Objective Active Medications: Acetaminophen (Tylenol Tab*) 650 mg PO Q6H PRN PRN Reason: PAIN Last Admin: 05/22/17 05:52 Dose: 650 mg Amlodipine Besylate (Norvasc Tab*) 2.5 mg PO DAILY [facility] Last Admin: 05/22/17 08:25 Dose: 2.5 mg Aspirin (Aspirin Ec Tab*) 81 mg PO DAILY [facility] Last Admin: 05/22/17 08:25 Dose: 81 mg Benzonatate (Tessalon Cap*) 100 mg PO BID PRN PRN Reason: COUGH Carbidopa/Levodopa (Sinemet Cr 50/200(*)) 1 tab.cr PO TID [facility] Last Admin: 05/22/17 13:14 Dose: 1 tab.cr Folic Acid (Folvite Tab*) 1 mg PO DAILY [facility] Last Admin: 05/22/17 08:26 Dose: 1 mg Furosemide (Lasix Iv*) 40 mg IV Q12H [facility] Last Admin: 05/22/17 08:26 Dose: 40 mg Guaifenesin (Robitussin*) 5 ml PO Q6H PRN PRN Reason: COUGH Heparin Sodium (Porcine) (Heparin Vial(*)) 5,000 units SUBCUT Q8HR [facility] Last Admin: 05/22/17 13:14 Dose: 5,000 units Piperacillin Sod/Tazobactam (Sod 13.5 gm/ Sodium Chloride) 500 mls @ 20.833 mls /hr IVPB Q24H [facility] Last Admin: 05/22/17 04:54 Dose: 20.833 mls/hr Sodium Chloride (Ns 0.9% 1000 Ml*) 1,000 mls @ 75 mls/hr IV PER RATE [facility] Last Admin: 05/22/17 04:50 Dose: 75 mls/hr Ibuprofen (Motrin Tab*) 600 mg PO Q8H PRN PRN Reason: PAIN Last Admin: 05/21/17 21:55 Dose: 600 mg Levothyroxine Sodium (Synthroid Tab*) 50 mcg PO DAILY@0600 [facility] Last Admin: 05/22/17 05:52 Dose: 50 mcg Lidocaine (Lidoderm 5% Patch*) 1 patch TRANSDERM DAILY PRN PRN Reason: PAIN Methotrexate (Methotrexate Tab*) 7.5 mg PO FR@1700 [facility] Metoprolol Tartrate (Lopressor Tab*) 12.5 mg PO Q12HR [facility] Last Admin: 05/22/17 08:26 Dose: 12.5 mg Omeprazole (Prilosec Cap*) 20 mg PO DAILY [facility] Last Admin: 05/22/17 08:26 Dose: 20 mg Ondansetron HCl (Zofran Inj*) 4 mg IV Q6H PRN PRN Reason: NAUSEA Last Admin: 05/19/17 13:23 Dose: 4 mg Oxycodone/Acetaminophen (Percocet 5/325 Tab*) 1 tab PO Q6H PRN PRN Reason: PAIN Pharmacy Consult (Zosyn Per Pharmacy*) 1 note FOLLOW UP .ZOSYN PER PHARMACY [facility] Pharmacy Profile Note (Lidocaine Patch Remove*) 1 note PATCH OFF 2100 [facility] Last Admin: 05/21/17 21:58 Dose: Not Given Tramadol HCl (Ultram*) 50 mg PO Q6H PRN PRN Reason: PAIN Last Admin: 05/21/17 08:04 Dose: 50 mg Vital Signs - 8 hr 05/22/17 05/22/17 05/22/17 09:59 10:00 10:51 Temperature 99.7 F Pulse Rate 67 Respiratory 25 27 27 Rate Blood Pressure 102/65 (mmHg) O2 Sat by Pulse 93 Oximetry 05/22/17 05/22/17 05/22/17 11:00 11:10 12:00 Temperature 99.7 F 99.7 F Pulse Rate 79 89 Respiratory 24 26 16 Rate Blood Pressure 108/67 106/68 (mmHg) O2 Sat by Pulse 95 97 Oximetry 05/22/17 05/22/17 05/22/17 13:00 13:01 13:37 Temperature 99.7 F 99.7 F Pulse Rate 85 83 Respiratory 32 28 23 Rate Blood Pressure 110/76 (mmHg) O2 Sat by Pulse 94 95 Oximetry 05/22/17 05/22/17 05/22/17 14:00 14:52 15:30 Temperature 99.7 F 98.1 F Pulse Rate 77 84 Respiratory 28 18 19 Rate Blood Pressure 109/65 117/63 (mmHg) O2 Sat by Pulse 97 100 Oximetry Oxygen Devices in Use Now: Nasal Cannula Appearance: More alert and oriented today, appears comfortable. Eyes: No Scleral Icterus, PERRLA Ears/Nose/Mouth/Throat: Mucous Membranes Moist Neck: NL Appearance and Movements; NL JVP, Trachea Midline Respiratory: Symmetrical Chest Expansion and Respiratory Effort, - - Diminished breath sounds at the bases, no rales or rhonchi. Cardiovascular: RRR, - - Unchanged systolic murmur. Abdominal: NL Sounds; No Tenderness; No Distention Extremities: No Edema Lines/Tubes/Other Access: Clean, Dry and Intact Castano, Clean, Dry and Intact Peripheral IV Nutrition: Taking PO's Result Diagrams: 05/22/17 05:12 05/22/17 05:12 Microbiology and Other Data: . Assess/Plan/Problems-Billing Assessment: Ms. Tee is an 86 yo female with a PMH of parkinson's, hypertension, chronic systolic CHF, and RA on methotrexate who was admitted on 05/15/17 with weakness, falls and new afib (rate controlled) with suspected viral illness. - Patient Problems (1) Acute on chronic systolic (congestive) heart failure Current Visit: Yes Comment: She appears to be doing better with her breathing today. Will continue her Lasix and gentle hydration. At this point, no surgical intervention is desired by patient or her family. (2) Afib Current Visit: Yes Comment: - New onset afib noted at last ED visit on 05/10/17. - HR increased - suspect this is related to her shortness of breath and fever - May be contributing to weakness. - Echo - severe new MR, LVEF 40% - Not a candidate for anticoagulation due to history of GI bleeding while on anticoagulation in the past for PE. (3) Cough Current Visit: Yes Comment: - Patient reported new cough prior to admission. - Cough improving now, only one episdoe last night. (4) DNR (do not resuscitate) Current Visit: Yes Comment: (5) DVT prophylaxis Current Visit: Yes Comment: - Heparin SQ. (6) Hypertension Current Visit: Yes Comment: - Continue amlodipine and metoprolol (newly started this admission), hold enalapril during acute illness. (7) Hypothyroidism Current Visit: Yes Comment: - Continue levothyroxine (8) Parkinson disease Current Visit: Yes Comment: - Continue sinemet. (9) Respiratory failure Current Visit: Yes Comment: Acute respiratory failure - Suspect this is related to her acute/ chronic CHF - Still has low grade fever, Vanco d/c'ed per ID recommendations, will continue Zosyn - Intially met sepsis 2 criteria with fever of 101.1 and tachypnea upon admission, now it is more likely related to her CHF and systolic dysfunction, ruling out sepsis. - advance directives discussed with patient and son - patient wishes to be DNR/ DNI MOLST form updated to reflect wishes. (10) Rheumatoid arthritis Current Visit: Yes Comment: - She is improving, and will rgive her Methotrexate dose today. (11) Weakness Current Visit: Yes Comment: - Acute generalized weakness suspect either secondary to viral illness or afib. - could be related to severe MR as well as tachypnea - possible RLL consolidation. - patients prognosis still poor considering health status Status and Disposition: Transfer from ICU to medical floor. Prognosis is still guarded. Mitral valve clipping is no longer considered by patient or her family. Palliative care to consult today.
[2017-05-22] MEDS ORDERED: Magnesium Hydroxide LIQ* 30 ML UDC PO ONE (21:00)
[2017-05-22] MEDS: Lidocaine Patch REMOVE* 1 NOTE MISC PATCH OFF SCH (21:50)
[2017-05-23] MEDS: traMADol TAB* 50 MG PO PRN (00:29)
[2017-05-23] MEDS: Piperacillin/Tazobactam 13.5 GM IV 24 hour continuous infusion IVPB SCH ×2 (05:43)
[2017-05-23] MEDS: Heparin VIAL(*) 5000 UNITS/ML VIAL (FIVE THOUSAND) SUBCUT SCH ×3 (05:43→20:58)
[2017-05-23] MEDS: Levothyroxine TAB* 50 MCG TAB PO SCH (05:43)
[2017-05-23] MEDS: Carbidopa/Levodop CR 50/200(*) TAB.CR PO SCH ×3 (09:14→20:56)
[2017-05-23] MEDS: Folic Acid TAB* 1 MG PO SCH (09:14)
[2017-05-23] MEDS: Furosemide IV* 10 MG/ML VIAL (40 MG) IV SCH ×2 (09:14→20:58)
[2017-05-23] MEDS: Omeprazole CAP* 20 MG PO SCH (09:14)
[2017-05-23] MEDS: Aspirin EC TAB* 81 MG TAB.EC PO SCH (09:14)
[2017-05-23] MEDS: Metoprolol Tartrate TAB* 25 MG PO SCH ×2 (09:15→20:56)
[2017-05-23] MEDS: amLODIPine TAB* 5 MG PO SCH (09:15)
[2017-05-23] MEDS ORDERED: Bisacodyl SUPP* 10 MG SUPP PR ONE (11:34)
[2017-05-23] MEDS ORDERED: Docusate CAP* 100 MG PO PRN (11:34)
[2017-05-23] MEDS ORDERED: Sodium Phosphate ADULT ENEMA* 118 ml bottle PR ONE (12:02)
--- NOTE | 2017-05-23 13:47 | PN ---
Subjective Date of Service: 05/23/17 Interval History: Mrs. Tee continues to improve. She is feeling better today, only c/o being constipated. Denies chest pain, palpitations, SOB, fever or chills. Appetite is a little better, eating lunch at this time. She was seen by Dr. Jolly yesterday to discuss health care options. Family History: Unchanged from Admission Social History: Unchanged from Admission Past Medical History: Unchanged from Admission Objective Active Medications: Acetaminophen (Tylenol Tab*) 650 mg PO Q6H PRN PRN Reason: PAIN Last Admin: 05/22/17 05:52 Dose: 650 mg Amlodipine Besylate (Norvasc Tab*) 2.5 mg PO DAILY [facility] Last Admin: 05/23/17 09:15 Dose: 2.5 mg Aspirin (Aspirin Ec Tab*) 81 mg PO DAILY [facility] Last Admin: 05/23/17 09:14 Dose: 81 mg Benzonatate (Tessalon Cap*) 100 mg PO BID PRN PRN Reason: COUGH Carbidopa/Levodopa (Sinemet Cr 50/200(*)) 1 tab.cr PO TID [facility] Last Admin: 05/23/17 09:14 Dose: 1 tab.cr Docusate Sodium (Colace Cap*) 100 mg PO BID PRN PRN Reason: CONSTIPATION Folic Acid (Folvite Tab*) 1 mg PO DAILY [facility] Last Admin: 05/23/17 09:14 Dose: 1 mg Furosemide (Lasix Iv*) 40 mg IV Q12H [facility] Last Admin: 05/23/17 09:14 Dose: 40 mg Guaifenesin (Robitussin*) 5 ml PO Q6H PRN PRN Reason: COUGH Heparin Sodium (Porcine) (Heparin Vial(*)) 5,000 units SUBCUT Q8HR [facility] Last Admin: 05/23/17 05:43 Dose: 5,000 units Piperacillin Sod/Tazobactam (Sod 13.5 gm/ Sodium Chloride) 500 mls @ 20.833 mls /hr IVPB Q24H [facility] Last Admin: 05/23/17 05:43 Dose: 20.833 mls/hr Ibuprofen (Motrin Tab*) 600 mg PO Q8H PRN PRN Reason: PAIN Last Admin: 05/21/17 21:55 Dose: 600 mg Levothyroxine Sodium (Synthroid Tab*) 50 mcg PO DAILY@0600 [facility] Last Admin: 05/23/17 05:43 Dose: 50 mcg Lidocaine (Lidoderm 5% Patch*) 1 patch TRANSDERM DAILY PRN PRN Reason: PAIN Methotrexate (Methotrexate Tab*) 7.5 mg PO FR@1700 [facility] Last Admin: 05/22/17 17:59 Dose: 7.5 mg Metoprolol Tartrate (Lopressor Tab*) 12.5 mg PO Q12HR [facility] Last Admin: 05/23/17 09:15 Dose: 12.5 mg Omeprazole (Prilosec Cap*) 20 mg PO DAILY [facility] Last Admin: 05/23/17 09:14 Dose: 20 mg Ondansetron HCl (Zofran Inj*) 4 mg IV Q6H PRN PRN Reason: NAUSEA Last Admin: 05/19/17 13:23 Dose: 4 mg Oxycodone/Acetaminophen (Percocet 5/325 Tab*) 1 tab PO Q6H PRN PRN Reason: PAIN Pharmacy Consult (Zosyn Per Pharmacy*) 1 note FOLLOW UP .ZOSYN PER PHARMACY [facility] Pharmacy Profile Note (Lidocaine Patch Remove*) 1 note PATCH OFF 2100 [facility] Last Admin: 05/22/17 21:50 Dose: Not Given Tramadol HCl (Ultram*) 50 mg PO Q6H PRN PRN Reason: PAIN Last Admin: 05/23/17 00:29 Dose: 50 mg Vital Signs - 8 hr 05/23/17 05/23/17 05/23/17 07:26 08:00 11:20 Temperature 98.4 F 97.6 F Pulse Rate 88 84 Respiratory 16 20 18 Rate Blood Pressure 114/59 117/62 (mmHg) O2 Sat by Pulse 97 99 Oximetry Oxygen Devices in Use Now: Nasal Cannula Appearance: Appears comfortable, alert and oriented. Sitting in her bed, eating lunch, in NAD. Eyes: No Scleral Icterus, PERRLA Ears/Nose/Mouth/Throat: Mucous Membranes Moist Neck: NL Appearance and Movements; NL JVP, Trachea Midline Respiratory: Symmetrical Chest Expansion and Respiratory Effort, - - Decreased breath sounds at bases, no wheezing. Cardiovascular: RRR, - - Unchanged systolic murmur. Abdominal: NL Sounds; No Tenderness; No Distention Extremities: No Edema Skin: No Rash or Ulcers Lines/Tubes/Other Access: Clean, Dry and Intact [place], Clean, Dry and Intact Peripheral IV Nutrition: Taking PO's Result Diagrams: 05/22/17 05:12 05/22/17 05:12 Assess/Plan/Problems-Billing Assessment: Ms. Tee is an 86 yo female with a PMH of parkinson's, hypertension, chronic systolic CHF, and RA on methotrexate who was admitted on 05/15/17 with weakness, falls and new afib (rate controlled) with suspected viral illness. Clinically stable and ready for SNR placement next week. - Patient Problems (1) Acute on chronic systolic (congestive) heart failure Current Visit: Yes Comment: She appears to be doing better with her breathing today. No surgical intervention is desired by patient or her family. (2) Afib Current Visit: Yes Comment: - New onset afib noted at last ED visit on 05/10/17, rate controlled now. (3) Cough Current Visit: Yes Comment: - Patient reported new cough prior to admission. - Cough improving now. (4) Hypertension Current Visit: Yes Comment: - Continue amlodipine and metoprolol (newly started this admission), hold enalapril during acute illness. (5) Hypothyroidism Current Visit: Yes Comment: - Continue levothyroxine (6) Parkinson disease Current Visit: Yes Comment: - Continue sinemet. (7) Respiratory failure Current Visit: Yes Comment: Acute respiratory failure - Suspect this is related to her acute/ chronic CHF - Still has low grade fever, Vanco d/c'ed per ID recommendations, will continue Zosyn - Intially met sepsis 2 criteria with fever of 101.1 and tachypnea upon admission, now it is more likely related to her CHF and systolic dysfunction, ruling out sepsis. - advance directives discussed with patient and son - patient wishes to be DNR/ DNI MOLST form updated to reflect wishes. (8) Rheumatoid arthritis Current Visit: Yes Comment: - She is improving, Methotrexate given yesterday. (9) Weakness Current Visit: Yes Comment: - Acute generalized weakness suspect either secondary to viral illness or afib. - could be related to severe MR as well as tachypnea - possible RLL consolidation. - supportive care, SNR placement (10) DNR (do not resuscitate) Current Visit: Yes Comment: (11) DVT prophylaxis Current Visit: Yes Comment: - Heparin SQ. Status and Disposition: Transfer from ICU to medical floor. Prognosis is still guarded. Mitral valve clipping is no longer considered by patient or her family. Palliative care consult reviewed, appreciated. Patient and family requesting [facility] SNF placement possibly as soon as next week. upon bed availability.
[2017-05-23] MEDS ORDERED: Vancomycin Trough Check NOTE FOLLOW UP ONE (20:30)
[2017-05-23] MEDS: Lidocaine Patch REMOVE* 1 NOTE MISC PATCH OFF SCH (20:47)
[2017-05-24] MEDS: Piperacillin/Tazobactam 13.5 GM IV 24 hour continuous infusion IVPB SCH ×2 (05:41)
[2017-05-24] MEDS: Levothyroxine TAB* 50 MCG TAB PO SCH (05:42)
[2017-05-24] MEDS: Heparin VIAL(*) 5000 UNITS/ML VIAL (FIVE THOUSAND) SUBCUT SCH ×3 (05:42→21:53)
[2017-05-24] MEDS: Furosemide IV* 10 MG/ML VIAL (40 MG) IV SCH ×2 (09:11→21:53)
[2017-05-24] MEDS: Metoprolol Tartrate TAB* 25 MG PO SCH ×2 (09:17→21:44)
[2017-05-24] MEDS: Aspirin EC TAB* 81 MG TAB.EC PO SCH (09:18)
[2017-05-24] MEDS: Omeprazole CAP* 20 MG PO SCH (09:18)
[2017-05-24] MEDS: amLODIPine TAB* 5 MG PO SCH (09:19)
[2017-05-24] MEDS: Folic Acid TAB* 1 MG PO SCH (09:19)
[2017-05-24] MEDS: traMADol TAB* 50 MG PO PRN ×2 (09:19→22:53)
[2017-05-24] MEDS: Carbidopa/Levodop CR 50/200(*) TAB.CR PO SCH ×3 (09:20→21:52)
--- NOTE | 2017-05-24 12:17 | PN ---
Subjective Date of Service: 05/24/17 Interval History: Reports doing about the same. Had a large BM yesterday after fleet enema. She has no c/o today. She doesn't care much for her diet, would like regular food. Her son suggested a swallowing evaluation, had chocking episodes in the past. Family History: Unchanged from Admission Social History: Unchanged from Admission Past Medical History: Unchanged from Admission Objective Active Medications: Acetaminophen (Tylenol Tab*) 650 mg PO Q6H PRN PRN Reason: PAIN Last Admin: 05/22/17 05:52 Dose: 650 mg Amlodipine Besylate (Norvasc Tab*) 2.5 mg PO DAILY [facility] Last Admin: 05/24/17 09:19 Dose: 2.5 mg Aspirin (Aspirin Ec Tab*) 81 mg PO DAILY [facility] Last Admin: 05/24/17 09:18 Dose: 81 mg Benzonatate (Tessalon Cap*) 100 mg PO BID PRN PRN Reason: COUGH Last Admin: 05/24/17 09:18 Dose: 100 mg Carbidopa/Levodopa (Sinemet Cr 50/200(*)) 1 tab.cr PO TID [facility] Last Admin: 05/24/17 09:20 Dose: 1 tab.cr Docusate Sodium (Colace Cap*) 100 mg PO BID PRN PRN Reason: CONSTIPATION Last Admin: 05/23/17 13:43 Dose: 100 mg Folic Acid (Folvite Tab*) 1 mg PO DAILY [facility] Last Admin: 05/24/17 09:19 Dose: 1 mg Furosemide (Lasix Iv*) 40 mg IV Q12H [facility] Last Admin: 05/24/17 09:11 Dose: 40 mg Guaifenesin (Robitussin*) 5 ml PO Q6H PRN PRN Reason: COUGH Heparin Sodium (Porcine) (Heparin Vial(*)) 5,000 units SUBCUT Q8HR [facility] Last Admin: 05/24/17 05:42 Dose: 5,000 units Piperacillin Sod/Tazobactam (Sod 13.5 gm/ Sodium Chloride) 500 mls @ 20.833 mls /hr IVPB Q24H [facility] Last Admin: 05/24/17 05:41 Dose: 20.833 mls/hr Ibuprofen (Motrin Tab*) 600 mg PO Q8H PRN PRN Reason: PAIN Last Admin: 05/21/17 21:55 Dose: 600 mg Levothyroxine Sodium (Synthroid Tab*) 50 mcg PO DAILY@0600 [facility] Last Admin: 05/24/17 05:42 Dose: 50 mcg Lidocaine (Lidoderm 5% Patch*) 1 patch TRANSDERM DAILY PRN PRN Reason: PAIN Methotrexate (Methotrexate Tab*) 7.5 mg PO FR@1700 [facility] Last Admin: 05/22/17 17:59 Dose: 7.5 mg Metoprolol Tartrate (Lopressor Tab*) 12.5 mg PO Q12HR [facility] Last Admin: 05/24/17 09:17 Dose: 12.5 mg Omeprazole (Prilosec Cap*) 20 mg PO DAILY [facility] Last Admin: 05/24/17 09:18 Dose: 20 mg Ondansetron HCl (Zofran Inj*) 4 mg IV Q6H PRN PRN Reason: NAUSEA Last Admin: 05/19/17 13:23 Dose: 4 mg Oxycodone/Acetaminophen (Percocet 5/325 Tab*) 1 tab PO Q6H PRN PRN Reason: PAIN Pharmacy Consult (Zosyn Per Pharmacy*) 1 note FOLLOW UP .ZOSYN PER PHARMACY [facility] Pharmacy Profile Note (Lidocaine Patch Remove*) 1 note PATCH OFF 2100 [facility] Last Admin: 05/23/17 20:47 Dose: Not Given Tramadol HCl (Ultram*) 50 mg PO Q6H PRN PRN Reason: PAIN Last Admin: 05/24/17 09:19 Dose: 50 mg Vital Signs - 8 hr 05/24/17 05/24/17 05/24/17 08:00 08:11 09:19 Temperature 98.0 F Pulse Rate 84 Respiratory 22 22 18 Rate Blood Pressure 120/73 (mmHg) O2 Sat by Pulse 100 Oximetry 05/24/17 11:17 Temperature Pulse Rate 76 Respiratory Rate Blood Pressure 100/60 (mmHg) O2 Sat by Pulse 97 Oximetry Oxygen Devices in Use Now: Nasal Cannula Appearance: Appears comfortable and in NAD> Eyes: No Scleral Icterus, PERRLA Ears/Nose/Mouth/Throat: Mucous Membranes Moist Neck: NL Appearance and Movements; NL JVP, Trachea Midline Respiratory: Symmetrical Chest Expansion and Respiratory Effort, Clear to Auscultation Cardiovascular: RRR, - - Systolic murmur unchanged. Abdominal: NL Sounds; No Tenderness; No Distention Extremities: No Edema Neurological: Alert and Oriented x 3 Nutrition: Taking PO's Result Diagrams: 05/22/17 05:12 05/22/17 05:12 Assess/Plan/Problems-Billing Assessment: Ms. Tee is an 86 yo female with a PMH of parkinson's, hypertension, chronic systolic CHF, and RA on methotrexate who was admitted on 05/15/17 with weakness, falls and new afib (rate controlled) with suspected viral illness. Clinically stable and ready for SNR placement next week. - Patient Problems (1) Acute on chronic systolic (congestive) heart failure Current Visit: Yes Comment: She appears to be doing better with her breathing today. No surgical intervention is desired by patient or her family. (2) Afib Current Visit: Yes Comment: - New onset afib noted at last ED visit on 05/10/17, rate controlled now. (3) Cough Current Visit: Yes Comment: - Cough improving now. (4) Hypertension Current Visit: Yes Comment: - Continue amlodipine and metoprolol (newly started this admission), hold enalapril during acute illness. (5) Hypothyroidism Current Visit: Yes Comment: - Continue levothyroxine (6) Parkinson disease Current Visit: Yes Comment: - Continue sinemet. (7) Respiratory failure Current Visit: Yes Comment: Acute respiratory failure - Suspect this is related to her acute/ chronic CHF - Still has low grade fever, Vanco d/c'ed per ID recommendations, will continue Zosyn - Intially met sepsis 2 criteria with fever of 101.1 and tachypnea upon admission, now it is more likely related to her CHF and systolic dysfunction, ruling out sepsis. - advance directives discussed with patient and son - patient wishes to be DNR/ DNI MOLST form updated to reflect wishes. (8) Rheumatoid arthritis Current Visit: Yes Comment: - She is improving, Methotrexate given. (9) Weakness Current Visit: Yes Comment: - Acute generalized weakness suspect either secondary to viral illness or afib. - could be related to severe MR as well as tachypnea - possible RLL consolidation. - supportive care, SNR placement (10) DNR (do not resuscitate) Current Visit: Yes Comment: (11) DVT prophylaxis Current Visit: Yes Comment: - Heparin SQ. Status and Disposition: Await placement to SNF hopefully tomorrow.
[2017-05-24] MEDS: Lidocaine Patch REMOVE* 1 NOTE MISC PATCH OFF SCH (21:43)
[2017-05-25] MEDS: Piperacillin/Tazobactam 13.5 GM IV 24 hour continuous infusion IVPB SCH ×2 (05:12)
[2017-05-25] MEDS: Levothyroxine TAB* 50 MCG TAB PO SCH (05:12)
[2017-05-25] MEDS: Heparin VIAL(*) 5000 UNITS/ML VIAL (FIVE THOUSAND) SUBCUT SCH ×3 (05:12→21:55)
--- NOTE | 2017-05-25 08:32 | PN ---
Subjective Date of Service: 05/25/17 Interval History: Ms. Tee denies any acute complaint today. She specifically denies chest pain, SOB, nausea, or abdominal pain. Family History: Unchanged from Admission Social History: Unchanged from Admission Past Medical History: Unchanged from Admission Objective Active Medications: Acetaminophen (Tylenol Tab*) 650 mg PO Q6H PRN Amlodipine Besylate (Norvasc Tab*) 2.5 mg PO DAILY [facility] Aspirin (Aspirin Ec Tab*) 81 mg PO DAILY [facility] Benzonatate (Tessalon Cap*) 100 mg PO BID PRN Carbidopa/Levodopa (Sinemet Cr 50/200(*)) 1 tab.cr PO TID [facility] Docusate Sodium (Colace Cap*) 100 mg PO BID PRN Folic Acid (Folvite Tab*) 1 mg PO DAILY [facility] Furosemide (Lasix Iv*) 40 mg IV Q12H [facility] Guaifenesin (Robitussin*) 5 ml PO Q6H PRN Heparin Sodium (Porcine) (Heparin Vial(*)) 5,000 units SUBCUT Q8HR [facility] Piperacillin Sod/Tazobactam (Sod 13.5 gm/ Sodium Chloride) 500 mls @ 20.833 mls /hr IVPB Q24H [facility] Ibuprofen (Motrin Tab*) 600 mg PO Q8H PRN Levothyroxine Sodium (Synthroid Tab*) 50 mcg PO DAILY@0600 [facility] Lidocaine (Lidoderm 5% Patch*) 1 patch TRANSDERM DAILY PRN Methotrexate (Methotrexate Tab*) 7.5 mg PO FR@1700 [facility] Metoprolol Tartrate (Lopressor Tab*) 12.5 mg PO Q12HR [facility] Omeprazole (Prilosec Cap*) 20 mg PO DAILY [facility] Ondansetron HCl (Zofran Inj*) 4 mg IV Q6H PRN Oxycodone/Acetaminophen (Percocet 5/325 Tab*) 1 tab PO Q6H PRN Pharmacy Consult (Zosyn Per Pharmacy*) 1 note FOLLOW UP .ZOSYN PER PHARMACY [facility] Pharmacy Profile Note (Lidocaine Patch Remove*) 1 note PATCH OFF 2100 [facility] Tramadol HCl (Ultram*) 50 mg PO Q6H PRN Vital Signs: Temp Pulse Resp BP Pulse Ox 97.6 F 79 18 102/67 100 05/25/17 07:55 05/25/17 07:55 05/25/17 07:55 04/09/18 07:55 05/25/17 07:55 Oxygen Devices in Use Now: Nasal Cannula Appearance: Elderly female lying in bed in NAD Eyes: No Scleral Icterus Ears/Nose/Mouth/Throat: Mucous Membranes Moist Neck: NL Appearance and Movements; NL JVP Respiratory: Symmetrical Chest Expansion and Respiratory Effort, Clear to Auscultation Cardiovascular: NL Sounds; No Murmurs; No JVD, No Edema Abdominal: NL Sounds; No Tenderness; No Distention Lymphatic: No Cervical Adenopathy Extremities: No Edema Skin: No Rash or Ulcers Neurological: Alert and Oriented x 3, NL Muscle Strength and Tone Nutrition: Taking PO's Result Diagrams: 05/22/17 05:12 05/22/17 05:12 Microbiology and Other Data: . Assess/Plan/Problems-Billing Assessment: Ms. Tee is an 86 yo female with a PMH of parkinson's, hypertension, chronic systolic CHF, and RA on methotrexate who was admitted on 05/15/17 with weakness, falls and new afib (rate controlled) with suspected viral illness. - Patient Problems (1) Weakness Comment: - Acute generalized weakness suspect secondary to viral illness, afib, and/or newly noted severe MR. - Continue PT/OT. (2) Cough Comment: - Resolved. (3) Afib Comment: - New onset afib noted at last ED visit on 05/10/17, rate controlled now. (4) Acute on chronic systolic (congestive) heart failure Comment: - Resolved. - New severe MR noted on echo this admission. No surgical intervention is desired by patient or her family. (5) Hypertension Comment: - Continue amlodipine and metoprolol (newly started this admission), hold enalapril during acute illness. (6) Parkinson disease Comment: - Continue sinemet. (7) Hypothyroidism Comment: - Continue levothyroxine (8) Rheumatoid arthritis Comment: - She is improving, Methotrexate given. (9) DVT prophylaxis Comment: - Heparin SQ. (10) DNR (do not resuscitate) Comment: Status and Disposition: Inpatient. Anticipate discharge to SNF when bed available.
[2017-05-25] MEDS: Carbidopa/Levodop CR 50/200(*) TAB.CR PO SCH ×3 (08:34→21:51)
[2017-05-25] MEDS: Metoprolol Tartrate TAB* 25 MG PO SCH ×2 (08:34→21:51)
[2017-05-25] MEDS: amLODIPine TAB* 5 MG PO SCH (08:34)
[2017-05-25] MEDS: Aspirin EC TAB* 81 MG TAB.EC PO SCH (08:35)
[2017-05-25] MEDS: Omeprazole CAP* 20 MG PO SCH (08:35)
[2017-05-25] MEDS: Furosemide IV* 10 MG/ML VIAL (40 MG) IV SCH ×2 (08:35→21:50)
[2017-05-25] MEDS: Folic Acid TAB* 1 MG PO SCH (08:35)
[2017-05-25] MEDS: Lidocaine Patch REMOVE* 1 NOTE MISC PATCH OFF SCH (21:49)
[2017-05-25] MEDS ORDERED: CMCS: Melatonin (NF) 3 MG TAB PO PRN (22:46)
[2017-05-26] MEDS: traMADol TAB* 50 MG PO PRN ×2 (02:07→20:09)
[2017-05-26] MEDS: Heparin VIAL(*) 5000 UNITS/ML VIAL (FIVE THOUSAND) SUBCUT SCH ×3 (05:38→21:32)
[2017-05-26] MEDS: Levothyroxine TAB* 50 MCG TAB PO SCH (05:39)
[2017-05-26] MEDS: Piperacillin/Tazobactam 13.5 GM IV 24 hour continuous infusion IVPB SCH ×2 (07:47)
[2017-05-26] MEDS: Furosemide IV* 10 MG/ML VIAL (40 MG) IV SCH (07:48)
[2017-05-26] MEDS: Metoprolol Tartrate TAB* 25 MG PO SCH ×2 (07:52→20:08)
[2017-05-26] MEDS: amLODIPine TAB* 5 MG PO SCH (07:53)
[2017-05-26] MEDS: Folic Acid TAB* 1 MG PO SCH (07:53)
[2017-05-26] MEDS: Carbidopa/Levodop CR 50/200(*) TAB.CR PO SCH ×3 (07:54→20:09)
[2017-05-26] MEDS: Omeprazole CAP* 20 MG PO SCH (07:54)
[2017-05-26] MEDS: Aspirin EC TAB* 81 MG TAB.EC PO SCH (07:54)
--- NOTE | 2017-05-26 08:36 | PN ---
Subjective Date of Service: 05/26/17 Interval History: Ms. Tee reports feeling well today and denies any acute complaint. She specifically denies chest pain, SOB, nausea, or abdominal pain. She is tolerating oral intake well. Family History: Unchanged from Admission Social History: Unchanged from Admission Past Medical History: Unchanged from Admission Objective Active Medications: Acetaminophen (Tylenol Tab*) 650 mg PO Q6H PRN Amlodipine Besylate (Norvasc Tab*) 2.5 mg PO DAILY [facility] Aspirin (Aspirin Ec Tab*) 81 mg PO DAILY [facility] Benzonatate (Tessalon Cap*) 100 mg PO BID PRN Carbidopa/Levodopa (Sinemet Cr 50/200(*)) 1 tab.cr PO TID [facility] Docusate Sodium (Colace Cap*) 100 mg PO BID PRN Folic Acid (Folvite Tab*) 1 mg PO DAILY [facility] Furosemide (Lasix Iv*) 40 mg IV Q12H [facility] Guaifenesin (Robitussin*) 5 ml PO Q6H PRN Heparin Sodium (Porcine) (Heparin Vial(*)) 5,000 units SUBCUT Q8HR [facility] Piperacillin Sod/Tazobactam (Sod 13.5 gm/ Sodium Chloride) 500 mls @ 20.833 mls /hr IVPB Q24H [facility] Ibuprofen (Motrin Tab*) 600 mg PO Q8H PRN Levothyroxine Sodium (Synthroid Tab*) 50 mcg PO DAILY@0600 [facility] Lidocaine (Lidoderm 5% Patch*) 1 patch TRANSDERM DAILY PRN Melatonin (Melatonin (Nf)) 3 mg PO BEDTIME PRN; Protocol Methotrexate (Methotrexate Tab*) 7.5 mg PO FR@1700 [facility] Metoprolol Tartrate (Lopressor Tab*) 12.5 mg PO Q12HR [facility] Omeprazole (Prilosec Cap*) 20 mg PO DAILY [facility] Ondansetron HCl (Zofran Inj*) 4 mg IV Q6H PRN Oxycodone/Acetaminophen (Percocet 5/325 Tab*) 1 tab PO Q6H PRN Pharmacy Consult (Zosyn Per Pharmacy*) 1 note FOLLOW UP .ZOSYN PER PHARMACY [facility] Pharmacy Profile Note (Lidocaine Patch Remove*) 1 note PATCH OFF 2100 [place] Tramadol HCl (Ultram*) 50 mg PO Q6H PRN Vital Signs: Temp Pulse Resp BP Pulse Ox 97.4 F 74 18 112/62 100 05/26/17 07:51 05/26/17 07:51 05/26/17 07:51 05/26/17 07:51 05/26/17 07:51 Oxygen Devices in Use Now: Nasal Cannula Appearance: Cachectic elderly female lying in bed in NAD Eyes: No Scleral Icterus Neck: NL Appearance and Movements; NL JVP Respiratory: Symmetrical Chest Expansion and Respiratory Effort, Clear to Auscultation Cardiovascular: NL Sounds; No Murmurs; No JVD, No Edema Abdominal: NL Sounds; No Tenderness; No Distention Lymphatic: No Cervical Adenopathy Extremities: No Edema Skin: No Rash or Ulcers Neurological: Alert and Oriented x 3, NL Muscle Strength and Tone Nutrition: Taking PO's Result Diagrams: 05/22/17 05:12 05/22/17 05:12 Additional Lab and Data: . Microbiology and Other Data: . Diagnostic Imaging: C. Assess/Plan/Problems-Billing Assessment: Ms. Tee is an 86 yo female with a PMH of parkinson's, hypertension, chronic systolic CHF, and RA on methotrexate who was admitted on 05/15/17 with weakness, falls and new afib (rate controlled) with suspected viral illness. - Patient Problems (1) Weakness Comment: - Acute generalized weakness suspect secondary to viral illness, afib, and/or newly noted severe MR. - Continue PT/OT. (2) Afib Comment: - New onset afib noted at last ED visit on 05/10/17, rate controlled now. (3) Acute on chronic systolic (congestive) heart failure Comment: - Resolved. - New severe MR noted on echo this admission. No surgical intervention is desired by patient or her family. - Continue lasix 20mg po daily. - Titrate O2 as tolerated. (4) Cough Comment: - Resolved. (5) Hypertension Comment: - Continue amlodipine and metoprolol (newly started this admission for afib with RVR). - Enalapril stopped. (6) Parkinson disease Comment: - Continue sinemet. (7) Hypothyroidism Comment: - Continue levothyroxine (8) Rheumatoid arthritis Comment: - Continue methotrexate. (9) DVT prophylaxis Comment: - Heparin SQ. (10) DNR (do not resuscitate) Comment: Status and Disposition: Inpatient. Anticipate discharge to SNF when bed available.
[2017-05-26 13:06] LABS: EGFR Non-African American 51.8 (>60)
[2017-05-26] MEDS ORDERED: Potassium Chloride LIQUID* 20 MEQ PACKET PO ONE (13:46)
[2017-05-26] MEDS ORDERED: Potassium Chloride LIQUID* 20 MEQ PACKET ONE (13:54)
[2017-05-26] MEDS: Lidocaine Patch REMOVE* 1 NOTE MISC PATCH OFF SCH (20:07)
[2017-05-27] MEDS: Heparin VIAL(*) 5000 UNITS/ML VIAL (FIVE THOUSAND) SUBCUT SCH ×3 (05:44→20:57)
[2017-05-27] MEDS: Levothyroxine TAB* 50 MCG TAB PO SCH (05:44)
[2017-05-27] MEDS: Carbidopa/Levodop CR 50/200(*) TAB.CR PO SCH ×3 (08:10→20:54)
[2017-05-27] MEDS: Aspirin EC TAB* 81 MG TAB.EC PO SCH (08:10)
[2017-05-27] MEDS: Omeprazole CAP* 20 MG PO SCH (08:10)
[2017-05-27] MEDS: amLODIPine TAB* 5 MG PO SCH (08:10)
[2017-05-27] MEDS: Folic Acid TAB* 1 MG PO SCH (08:10)
[2017-05-27] MEDS: Metoprolol Tartrate TAB* 25 MG PO SCH ×2 (08:10→20:54)
[2017-05-27] MEDS: Furosemide TAB* 20 MG PO SCH (08:49)
[2017-05-27] MEDS: KCL 10 MEQ/50 ML IVPREMIX* 10 MEQ/50 ML BAG IV SCH ×2 (08:49→11:50)
--- NOTE | 2017-05-27 12:41 | PN ---
Progress Note - Progress Note Date of Service: 05/27/17 Note: Patient was seen and examined at bedside. Hospitalist progress note to follow. She is medically stable for discharge tomorrow. She will be in need of a hospitalist bed at her residence due to chronis history of rheumatoid arthritis. Frequent positioning with changes in bed reclining will be needed throughout the day. She will also require a Malina left to use, to get in and out of her bed as indicated.
[2017-05-27] MEDS: traMADol TAB* 50 MG PO PRN (17:54)
--- NOTE | 2017-05-27 18:21 | PN ---
Subjective Date of Service: 05/27/17 Interval History: Mrs. Tee reports doing well. No new c/o. She is waiting patiently her upcoming placement to [facility] assisted living facility. Family History: Unchanged from Admission Social History: Unchanged from Admission Past Medical History: Unchanged from Admission Objective Active Medications: Acetaminophen (Tylenol Tab*) 650 mg PO Q6H PRN PRN Reason: PAIN Last Admin: 05/22/17 05:52 Dose: 650 mg Amlodipine Besylate (Norvasc Tab*) 2.5 mg PO DAILY [facility] Last Admin: 05/27/17 08:10 Dose: 2.5 mg Aspirin (Aspirin Ec Tab*) 81 mg PO DAILY [facility] Last Admin: 05/27/17 08:10 Dose: 81 mg Benzonatate (Tessalon Cap*) 100 mg PO BID PRN PRN Reason: COUGH Last Admin: 05/24/17 09:18 Dose: 100 mg Carbidopa/Levodopa (Sinemet Cr 50/200(*)) 1 tab.cr PO TID [facility] Last Admin: 05/27/17 15:11 Dose: 1 tab.cr Docusate Sodium (Colace Cap*) 100 mg PO BID PRN PRN Reason: CONSTIPATION Last Admin: 05/23/17 13:43 Dose: 100 mg Folic Acid (Folvite Tab*) 1 mg PO DAILY [facility] Last Admin: 05/27/17 08:10 Dose: 1 mg Furosemide (Lasix Tab*) 20 mg PO DAILY [facility] Last Admin: 05/27/17 08:49 Dose: 20 mg Guaifenesin (Robitussin*) 5 ml PO Q6H PRN PRN Reason: COUGH Heparin Sodium (Porcine) (Heparin Vial(*)) 5,000 units SUBCUT Q8HR [facility] Last Admin: 05/27/17 15:11 Dose: 5,000 units Ibuprofen (Motrin Tab*) 600 mg PO Q8H PRN PRN Reason: PAIN Last Admin: 05/21/17 21:55 Dose: 600 mg Levothyroxine Sodium (Synthroid Tab*) 50 mcg PO DAILY@0600 [facility] Last Admin: 05/27/17 05:44 Dose: 50 mcg Lidocaine (Lidoderm 5% Patch*) 1 patch TRANSDERM DAILY PRN PRN Reason: PAIN Melatonin (Melatonin (Nf)) 3 mg PO BEDTIME PRN; Protocol PRN Reason: Sleep Methotrexate (Methotrexate Tab*) 7.5 mg PO FR@1700 [facility] Last Admin: 05/22/17 17:59 Dose: 7.5 mg Metoprolol Tartrate (Lopressor Tab*) 12.5 mg PO Q12HR [facility] Last Admin: 05/27/17 08:10 Dose: 12.5 mg Omeprazole (Prilosec Cap*) 20 mg PO DAILY [facility] Last Admin: 05/27/17 08:10 Dose: 20 mg Ondansetron HCl (Zofran Inj*) 4 mg IV Q6H PRN PRN Reason: NAUSEA Last Admin: 05/19/17 13:23 Dose: 4 mg Oxycodone/Acetaminophen (Percocet 5/325 Tab*) 1 tab PO Q6H PRN PRN Reason: PAIN Pharmacy Consult (Zosyn Per Pharmacy*) 1 note FOLLOW UP .ZOSYN PER PHARMACY [facility] Pharmacy Profile Note (Lidocaine Patch Remove*) 1 note PATCH OFF 2100 [facility] Last Admin: 05/26/17 20:07 Dose: Not Given Tramadol HCl (Ultram*) 50 mg PO Q6H PRN PRN Reason: PAIN Last Admin: 05/27/17 17:54 Dose: 50 mg Vital Signs - 8 hr 05/27/17 05/27/17 05/27/17 11:10 15:39 16:12 Temperature 98.1 F 97.7 F Pulse Rate 84 81 Respiratory 19 27 20 Rate Blood Pressure 114/68 109/65 (mmHg) O2 Sat by Pulse 97 98 Oximetry 05/27/17 17:54 Temperature Pulse Rate Respiratory 20 Rate Blood Pressure (mmHg) O2 Sat by Pulse Oximetry Oxygen Devices in Use Now: Nasal Cannula Appearance: Appears comfortable and in NAD. Eyes: No Scleral Icterus, PERRLA Ears/Nose/Mouth/Throat: Mucous Membranes Moist Neck: NL Appearance and Movements; NL JVP, Trachea Midline Respiratory: Symmetrical Chest Expansion and Respiratory Effort, Clear to Auscultation Cardiovascular: NL Sounds; No Murmurs; No JVD, RRR Abdominal: NL Sounds; No Tenderness; No Distention Extremities: No Edema Neurological: Alert and Oriented x 3, NL Sensation, NL Muscle Strength and Tone Nutrition: Taking PO's Result Diagrams: 05/22/17 05:12 05/27/17 06:07 Additional Lab and Data: . Microbiology and Other Data: . . Diagnostic Imaging: . Assess/Plan/Problems-Billing Assessment: Ms. Tee is an 86 yo female with a PMH of parkinson's, hypertension, chronic systolic CHF, and RA on methotrexate who was admitted on 05/15/17 with weakness, falls and new afib (rate controlled) with suspected viral illness. - Patient Problems (1) Acute on chronic systolic (congestive) heart failure Current Visit: Yes Comment: - Resolved. - New severe MR noted on echo this admission. No surgical intervention is desired by patient or her family. - Continue lasix 20mg po daily. - Titrate O2 as tolerated. (2) Afib Current Visit: Yes Comment: - New onset afib noted at last ED visit on 05/10/17, rate controlled now. (3) Cough Current Visit: Yes Comment: - Resolved. (4) Hypertension Current Visit: Yes Comment: - Continue amlodipine and metoprolol (newly started this admission for afib with RVR). - Enalapril stopped. (5) Hypothyroidism Current Visit: Yes Comment: - Continue levothyroxine (6) Parkinson disease Current Visit: Yes Comment: - Continue sinemet. (7) Respiratory failure Current Visit: Yes Comment: Acute respiratory failure - Suspect this is related to her acute/ chronic CHF - Still has low grade fever, Vanco d/c'ed per ID recommendations, will continue Zosyn - Intially met sepsis 2 criteria with fever of 101.1 and tachypnea upon admission, now it is more likely related to her CHF and systolic dysfunction, ruling out sepsis. - advance directives discussed with patient and son - patient wishes to be DNR/ DNI MOLST form updated to reflect wishes. (8) Rheumatoid arthritis Current Visit: Yes Comment: - Continue methotrexate. (9) Weakness Current Visit: Yes Comment: - Acute generalized weakness suspect secondary to viral illness, afib, and/or newly noted severe MR. - Continue PT/OT. (10) Hypokalemia Current Visit: Yes Comment: Replaced with IV runs and PO supplements (11) DNR (do not resuscitate) Current Visit: Yes Comment: (12) DVT prophylaxis Current Visit: Yes Comment: - Heparin SQ. Status and Disposition: Inpatient. Anticipate discharge to [facility] assisted living facility tomorrow. Discharge summary dictated. Time spent discharging patient was 40 min.
[2017-05-27] MEDS: Lidocaine Patch REMOVE* 1 NOTE MISC PATCH OFF SCH (20:55)
[2017-05-28] MEDS: traMADol TAB* 50 MG PO PRN (05:31)
[2017-05-28] MEDS: Levothyroxine TAB* 50 MCG TAB PO SCH (05:31)
[2017-05-28] MEDS: Heparin VIAL(*) 5000 UNITS/ML VIAL (FIVE THOUSAND) SUBCUT SCH (05:32)
[2017-05-28 08:36] VITALS: BP 128/65
[2017-05-28] MEDS: Carbidopa/Levodop CR 50/200(*) TAB.CR PO SCH (09:00)
[2017-05-28] MEDS: Furosemide TAB* 20 MG PO SCH (09:01)
[2017-05-28] MEDS: amLODIPine TAB* 5 MG PO SCH (09:01)
[2017-05-28] MEDS: Metoprolol Tartrate TAB* 25 MG PO SCH (09:01)
[2017-05-28] MEDS: Folic Acid TAB* 1 MG PO SCH (09:01)
[2017-05-28] MEDS: Omeprazole CAP* 20 MG PO SCH (09:01)
[2017-05-28] MEDS: Aspirin EC TAB* 81 MG TAB.EC PO SCH (09:01)
--- NOTE | 2017-05-30 03:40 | DS ---
DISCHARGE SUMMARY: DATE OF ADMISSION: 05/15/17 DATE OF DISCHARGE: 05/28/17 ADMITTING PHYSICIAN: Dr. Michael Mortensen. ATTENDING PHYSICIAN: Dr. Michael Mortensen.* (DICTATED BY MAGDALENE FULTON) ADMISSION DIAGNOSES: 1. Hypoxia with tachypnea and tachycardia with chest x-ray showing pulmonary edema. 2. Cough that was new and likely related to viral illness. 3. Atrial fibrillation. 4. Weakness. 5. Hypertension. 6. Parkinson's disease. 7. Hypothyroidism. 8. Rheumatoid arthritis. DISCHARGE DIAGNOSES: 1. Hypoxia with tachypnea and tachycardia with chest x-ray showing pulmonary edema. 2. Cough that was new and likely related to viral illness. 3. Atrial fibrillation. 4. Weakness. 5. Hypertension. 6. Parkinson's disease. 7. Hypothyroidism. 8. Rheumatoid arthritis. 9. Acute on chronic systolic dysfunction. 10. Severe mitral valve regurgitation. 11. Hypokalemia. 12. Chronic back pain. CONSULTATION: Dr. Cole Conte, Cardiology. PROCEDURES: None. BRIEF MEDICAL HISTORY: Mrs. Tee is an 86-year-old female who has multiple comorbidities including systolic congestive heart failure with history of [place] back in 2011 for which he had cardiac catheterization with stent. She has also history of Parkinson's disease and pulmonary embolism for which she has taken Pradaxa for a period of time, but she is no longer on it due to GI bleed. She also has history of chronic rheumatoid arthritis for which she has been taken methotrexate on a weekly basis. She presented to the emergency room at [facility] with concern for left-sided neck pain. The patient reports that pain started couple of days ago, had some resolution using hot pack over her neck. However, since then she has noticed becoming weaker and had 1 episode of fall 2 days prior to presentation. She reports falling and injured her right hand with a large bruise on it as well as some bruise on her tailbone. She was able to manage getting up and ambulate afterwards, but continue to feel weaker on a daily basis. She called her son who hold her healthcare proxy and decision was made to bring her to the emergency room for evaluation. She also reports a new cough that developed the day before her presentation, but denied any fever, chills, chest pain, wheezing, or shortness of breath. In the emergency room, she had a laboratory workup that showed concern for mild lactic acidosis with a value of 2.4 that improved to 2.1 with gentle hydration. Her troponin was normal and she had no significant leukocytosis or anemia. Given her advanced age and multiple medical issue, decision was made for the patient to be admitted for observation. She initially did relatively well with some symptomatic relief of her cough and neck pain. She had a transthoracic echocardiogram on the following day that revealed significant left atrium dilatation consistent with severe mitral regurgitation. The patient has history of systolic congestive heart failure and has been followed by Dr. Conte and given the new findings of increased mitral regurgitation, Cardiology consult was obtained. The patient had daily chest x-ray that revealed some pulmonary congestion and she also complained of increased shortness of breath. We started her on Lasix and she responded well with increased urinary output. On the third day of her hospitalization, the patient was noted to have worsening dyspnea at rest for which she developed increasing cough and low- grade fever as well. She also showed sign of fluid overload and was more dyspneic with visible labored breathing. Chest x-ray was obtained and it looked worse today with some left lower lobe infiltrates and infusion for which patient was transferred to the ICU and was given supplemental oxygen and diuretics for treatment of her congestive heart failure and possible pneumonia. Her fever continue to rise, relieved with Tylenol; however, she continued to have elevated temperature for which vancomycin was added for broad- spectrum coverage. Cardiac consultation was obtained regarding her mitral regurg and poor systolic dysfunction. Recommendation initially was made for her to have a mitral valve clipping procedure since the patient was not a good surgical candidate for valve replacement. That option was discussed with her and her family. After extended discussion over the next couple of days, the decision was finally made not to proceed with any surgical intervention and to discuss palliative care option. A palliative care consult was obtained by Dr. Jolly who saw the patient in consultation. She continued to gradually improve with conservative measures, supplemental oxygen and diuresis. She eventually was transferred out of the ICU and back to the medical floor. caregiver services home consult was obtained to discuss possible option for placement. The patient was not ambulatory very well given her rheumatoid arthritis and we resumed her methotrexate for symptomatic management. She was hospitalized for the following few days awaiting placement and finally the decision was made by her family to move her to adult assisted housing at [facility]. The patient was examined on a daily basis and she continued to improve. She no longer had any issues with her breathing and denies any chest pain or shortness of breath. She will be discharged to Adult Assisted Housing and plan for her to follow up with primary care physician in a week or 2. DISCHARGE MEDICATIONS: Include: 1. Tylenol 500 mg p.o. q.6 hours as needed for pain or fever. 2. Norvasc 5 mg p.o. daily. 3. Aspirin 81 mg p.o. daily. 4. Calcium with vitamins 1 cap p.o. daily. 5. Carbidopa/levodopa 1 tablet p.o. t.i.d. 6. Colace 100 mg p.o. b.i.d. 7. Folic acid 1 mg p.o. daily. 8. Lasix 20 mg p.o. daily. 9. Synthroid 25 mcg p.o. daily. 10. Lidocaine patch 5% one patch transdermal as prescribed. 11. Methotrexate 7.5 mg p.o. every Thursday. 12. Metoprolol 25 mg p.o. daily. 13. Multivitamin 1 tablet daily. 14. Omeprazole 20 mg 1 tablet daily. 15. Zocor 20 mg p.o. daily. 16. Tramadol 50 mg p.o. q.6 hours as needed for pain. 17. Ambien 5 mg q.h.s. p.r.n. for insomnia. MAGDALENE FULTON [id number]/[facility] [place]: [id number] MTDD
== END 2017-05-28 11:25 | DRG 291 ==
LOC: ED 11:06 → OBSVTOIN 15:52 → MED 15:52 → ICU 05-18 13:14 → MED 05-22 14:39
PROVIDERS: ADMIT Internal Medicine; ATTEND Internal Medicine
PROC: 0T9B70Z Drainage of Bladder with Drainage Device, Via Natural or Artificial Opening (ICD-10-PCS; 2017-05-16)
PROC: 5A09357 Assistance with Respiratory Ventilation, Less than 24 Consecutive Hours, Continuous Positive Airway Pressure (ICD-10-PCS; principal; 2017-05-18)
DX: I13.0 Hypertensive heart and chronic kidney disease with heart failure and stage 1 through stage 4 chronic kidney disease, or unspecified chronic kidney disease (principal); J18.9 Pneumonia, unspecified organism; I50.23 Acute on chronic systolic (congestive) heart failure; J96.01 Acute respiratory failure with hypoxia; E87.2 Acidosis; E86.0 Dehydration; G20 Parkinson's disease; N18.9 Chronic kidney disease, unspecified; M06.9 Rheumatoid arthritis, unspecified; E03.9 Hypothyroidism, unspecified; M81.0 Age-related osteoporosis without current pathological fracture; K21.9 Gastro-esophageal reflux disease without esophagitis; K57.90 Diverticulosis of intestine, part unspecified, without perforation or abscess without bleeding; M19.90 Unspecified osteoarthritis, unspecified site; M85.80 Other specified disorders of bone density and structure, unspecified site; W19.XXXA Unspecified fall, initial encounter; S60.221A Contusion of right hand, initial encounter; I71.2 Thoracic aortic aneurysm, without rupture; Z66 Do not resuscitate; E78.5 Hyperlipidemia, unspecified; I34.0 Nonrheumatic mitral (valve) insufficiency; E87.70 Fluid overload, unspecified; E87.6 Hypokalemia; M54.9 Dorsalgia, unspecified; G89.29 Other chronic pain; S30.0XXA Contusion of lower back and pelvis, initial encounter; R62.7 Adult failure to thrive; I25.10 Atherosclerotic heart disease of native coronary artery without angina pectoris; F41.9 Anxiety disorder, unspecified; I73.9 Peripheral vascular disease, unspecified; R40.0 Somnolence; I48.2 Chronic atrial fibrillation; I25.2 Old myocardial infarction; Z95.5 Presence of coronary angioplasty implant and graft; Z90.49 Acquired absence of other specified parts of digestive tract; Z86.711 Personal history of pulmonary embolism; Z98.49 Cataract extraction status, unspecified eye; Z85.828 Personal history of other malignant neoplasm of skin; Y92.9 Unspecified place or not applicable; Z86.73 Personal history of transient ischemic attack (TIA), and cerebral infarction without residual deficits; Z82.49 Family history of ischemic heart disease and other diseases of the circulatory system; Z95.1 Presence of aortocoronary bypass graft; Z79.82 Long term (current) use of aspirin; Z79.01 Long term (current) use of anticoagulants; Z80.7 Family history of other malignant neoplasms of lymphoid, hematopoietic and related tissues
CPT/HCPCS: 36415; 71045; 71046; 72170; 72220; 80048; 80053; 81003; 81015; 82553; 83605; 83880; 84145; 84484; 85025; 85610; 85652; 85730; 86140; 87040; 87077; 87086; 87150; 87205; 87502; 93005; 93306; 94660; 94667; 94668; 94760; 99283; A9270-GY; G8978-GP-CK; G8978-GP-CM; G8979-GP-CI; G8979-GP-CK; G8987-GO-CK; G8988-GO-CI; G8989-GO-CI; J0456; J0696; J1644; J1940; J2405; J2543; J3370; J3480; J8610

== ENCOUNTER 2018-05-11 13:27 | Emergency (ER) | payer OTHER ==
--- NOTE | 2018-05-11 14:02 | ED ---
Shortness of Breath - HPI Summary HPI Summary: An 87 y/o female brought in by [facility] ambulance presents to [facility] with a chief complaint of shortness of breath today. The patient reports that she coughed up clear sputum today. She reports that she was not vomiting. She claims that now she feels fine and rates her pain as a 0/10. She does c/o back pain. She denies CP and edema. She reports that she does not walk. Vital signs while in room HR : 101bpm, O2 Sat: 97, BP: 119/102. - History of Current Complaint Chief Complaint: EDShortnessOfBreath Time Seen by Provider: 05/11/18 13:37 Hx Obtained From: Patient Onset/Duration: Lasting Hours, Still Present Timing: Constant Current Severity: Mild Dyspnea At: Rest Aggrevating Factors: Nothing Alleviating Factors: Nothing Associated Signs & Symptoms: Cough (Productive) - Allergy/Home Medications Allergies/Adverse Reactions: Allergies Allergy/AdvReac Type Severity Reaction Status Date / Time No Known Allergies Allergy Verified 05/10/17 17:14 PMH/Surg Hx/FS Hx/Imm Hx Endocrine/Hematology History: Reports: Hx Anticoagulant Therapy - Pradaxa, Hx Thyroid Disease Denies: Hx Diabetes Cardiovascular History: Reports: Hx Aneurysm, Hx Congestive Heart Failure, Hx Embolism, Hx Hypercholesterolemia, Hx Hypertension - medicated, Other Cardiovascular Problems/Disorders - PE Respiratory History: Reports: Hx Pulmonary Embolism Comment Only: Hx Chronic Obstructive Pulmonary Disease (COPD) - PE GI History: Reports: Hx Diverticulosis, Hx Gall Bladder Disease, Hx Gastroesophageal Reflux Disease, Hx Hiatal Hernia, Other GI Disorders History: Reports: Hx Chronic Renal Failure, Other Problems/Disorders - incontinence Denies: Hx Renal Disease Musculoskeletal History: Reports: Hx Arthritis - rheumatoid, Hx Rheumatoid Arthritis, Hx Osteoporosis - with compression fractures Denies: Hx Back Problems Sensory History: Reports: Hx Cataracts - Surgically repaired, Hx Contacts or Glasses Denies: Hx Hearing Aid Opthamlomology History: Reports: Hx Cataracts - Surgically repaired, Hx Contacts or Glasses Neurological History: Reports: Other Neuro Impairments/Disorders - Parkinson Psychiatric History: Comment Only: Hx Anxiety - occasional anxiety but no treatment - Cancer History Cancer Type, 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, 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) - Surgical History Surgery Procedure, Year, and Place: Cholycystectomy, cataracts, tonsillectomy, Hx Anesthesia Reactions: No Infectious Disease History: No Infectious Disease History: Reports: Hx Hepatitis - 1960s Denies: Traveled Outside the [place] in Last 30 Days - Family History Known Family History: Positive: Cardiac Disease, Other - multiple myeloma - Social History Alcohol Use: None Substance Use Type: Reports: None Smoking Status (MU): Never Smoked Tobacco Review of Systems Negative: Fever Negative: Chest Pain Positive: Shortness Of Breath, Cough Negative: Vomiting Positive: Myalgia - back pain. Negative: Edema All Other Systems Reviewed And Are Negative: Yes Physical Exam - Summary Physical Exam Summary: Appearance: The patient is well-nourished in no acute distress and in no acute pain. Skin: The skin is warm and dry and skin color reflects adequate perfusion. HEENT: The head is normocephalic and atraumatic. The pupils are equal and reactive. The conjunctivae are clear and without drainage. Nares are patent and without drainage. Mouth reveals moist mucous membranes and the throat is without erythema and exudate. The external ears are intact. The ear canals are patent and without drainage. The tympanic membranes are intact. Neck: The neck is supple with full range of motion and non-tender. There are no carotid bruits. There is no neck vein distension. Respiratory: Chest is non-tender. Tachypnic. Inspiratory crackles in all lung isaac. Cardiovascular: Heart is tachycardic. There is no murmur or rub auscultated. There is no peripheral edema and pulses are symmetrical and equal. Abdomen: The abdomen is soft and non-tender. There are normal bowel sounds heard in all four quadrants and there is no organomegaly palpated. Musculoskeletal: There is no back tenderness noted. Extremities are non-tender with full range of motion. There is good capillary refill. There is no peripheral edema or calf tenderness elicited. Neurological: Patient is alert and oriented to person, place and time. The patient has symmetrical motor strength in all four extremities. Cranial nerves are grossly intact. Deep tendon reflexes are symmetrical and equal in all four extremities. Psychiatric: The patient has an appropriate affect and does not exhibit any anxiety or depression. Triage Information Reviewed: Yes Vital Signs On Initial Exam: Initial Vitals Temp Pulse Resp BP Pulse Ox 99 F 106 22 141/85 98 05/11/18 13:33 05/11/18 13:33 05/11/18 13:33 05/11/18 13:33 05/11/18 13:33 Vital Signs Reviewed: Yes Diagnostics - Vital Signs Vital Signs Temp Pulse Resp BP Pulse Ox 05/11/18 13:33 99 F 106 22 141/85 98 - Laboratory Result Diagrams: 05/11/18 14:15 05/11/18 14:15 Lab Statement: Any lab studies that have been ordered have been reviewed, and results considered in the medical decision making process. - Radiology CXR Radiology Interpretation Completed By: Radiologist Summary of Radiographic Findings: NO EVIDENCE FOR ACUTE FINDING. ED physician has reviewed this imaging report. - EKG 14:11 Cardiac Rate: Other Rate - Atrial fibrillation at 91 bpm EKG Rhythm: Atrial Fibrillation Summary of EKG Findings: Atrial fibrillation at 91 bpm, no change from previous EKG done 05/15/17. Re-Evaluation - Re-Evaluation First Eval Re-Evaluation Time: 15:48 Change: Improved Comment: Discussed results, Pt is feeling better and ready for DC. Course/Dx - Course Course Of Treatment: Ms. Tee was noted to be short of breath at the [facility] and the ambulance was called. Similar along the line she coughed up a bunch of mucus and when she arrives here she states that she feels better. She is reticent to have much done but assented to some testing when it was pointed out that she was a bit tachycardic and tachypneic at rest here. This resolved on its own while labs and chest x-ray were being obtained and her workup was essentially negative. She wanted to go home and I thought that was a reasonable plan. - Diagnoses Provider Diagnoses: Dyspnea Discharge - Sign-Out/Discharge Documenting (check all that apply): Patient Departure - DC Patient Received Moderate/Deep Sedation with Procedure: No - Discharge Plan Condition: Stable Disposition: HOME Patient Education Materials: Dyspnea (ED) Referrals: Nasrin Bowman MD [Primary Care Provider] - (2-3 days) Additional Instructions: Return to the ED if you experience any new or worsening symptoms. - Billing Disposition and Condition Condition: STABLE Disposition: Home - Attestation Statements Document Initiated by Scribe: Yes Documenting Scribe: Sharan Hannah Provider For Whom Scribe is Documenting (Include Credential): Toni Caldera MD Scribe Attestation: ISharan, scribed for Toni Caldera MD on 05/11/18 at 1824. Scribe Documentation Reviewed: Yes Provider Attestation: The documentation as recorded by the scribe, Sharan Hannah accurately reflects the service I personally performed and the decisions made by me, Toni Caldera MD Status of Scribe Document: Viewed
[2018-05-11 14:24] LABS: ABS Basophils 0.1 10^3/ul (0-0.2); ABS Eosinophils 0.4 10^3/ul (0-0.6); ABS Lymphocytes 1.8 10^3/ul (1.0-4.8); ABS Monocytes 0.5 10^3/ul (0-0.8); ABS Neutrophils 5.3 10^3/ul (1.5-7.7); ABS Nucleated RBC 0 10^3/ul; Eosinophil % 5.1 %; Hematocrit 44 % (33-41); Hemoglobin 14.6 g/dL (12.0-16.0); Lymphocyte % 22.4 %; Mean Corpuscular HGB Conc 33 g/dL (31-36); Mean Corpuscular Hemoglobin 34 pg (27-31); Mean Corpuscular Volume 101 fL (80-97); Mean Platelet Volume 8.4 fL (7.4-10.4); Nucleated Red Blood Cells % 0; Platelet Count 162 10^3/uL (150-450); Red Blood Count 4.34 10^6 /uL (3.70-4.87); Red Cell Distribution Width 16 % (10.5-15); White Blood Count 8.1 10^3/uL (3.5-10.8)
[2018-05-11 14:42] LABS: Albumin 3.2 g/dL (3.2-5.2); Albumin/Globulin Ratio 0.9 (1-3); BUN/Creatinine Ratio 20.2 (8-20); C Reactive Protein 14.81 mg/L (<8.01); Calcium 8.9 mg/dL (8.6-10.3); EGFR African American 54.4 (>60); Globulin 3.6 g/dL (2-4); Total Bilirubin 0.6 mg/dL (0.2-1.0); Total Protein 6.8 g/dL (6.4-8.9)
[2018-05-11 15:37] LABS: Influenza A Molecular NEGATIVE (Negative); Influenza B Molecular NEGATIVE (Negative)
[2018-05-11 16:33] VITALS: BP 133/77
== END 2018-05-11 16:34 | disposition home or self-care (01) ==
LOC: ED 13:27
DX: R06.00 Dyspnea, unspecified (principal); R94.31 Abnormal electrocardiogram [ECG] [EKG]; I13.0 Hypertensive heart and chronic kidney disease with heart failure and stage 1 through stage 4 chronic kidney disease, or unspecified chronic kidney disease; I50.9 Heart failure, unspecified; N18.9 Chronic kidney disease, unspecified; J44.9 Chronic obstructive pulmonary disease, unspecified; E07.9 Disorder of thyroid, unspecified; E78.00 Pure hypercholesterolemia, unspecified; K21.9 Gastro-esophageal reflux disease without esophagitis; M06.9 Rheumatoid arthritis, unspecified; G20 Parkinson's disease; Z79.899 Other long term (current) drug therapy; Z86.711 Personal history of pulmonary embolism; Z79.01 Long term (current) use of anticoagulants; Z85.828 Personal history of other malignant neoplasm of skin
CPT/HCPCS: 36415; 71045; 80053; 83605; 83880; 84484; 85025; 86140; 87040; 93005; 99282